=== PATIENT | male | born 1950 | race Caucasian/White ===

== ENCOUNTER 2019-09-20 13:24 | Outpatient (CLI) | payer MEDICARE, SELFPAY ==
[2019-09-20 14:35] LABS: Alanine Aminotransferase 28 U/L (4-50); Albumin Level 4.9 g/dL (3.5-5.1); Alkaline Phosphatase 55 U/L (38-126); Aspartate Amino Transferase 29 U/L (17-59); Bilirubin,Total 0.6 mg/dL (0.2-1.3); Blood Urea Nitrogen 17 mg/dL (9-20); Calcium 10.1 mg/dL (8.4-10.2); Carbon Dioxide 24 mmol/L (22-30); Chloride 100 mmol/L (98-107); Estimated Glomerular Filt Rate > 60; Glucose 147 mg/dL (75-110); Potassium 4.6 mmol/L (3.4-5.0); Sodium 141 mmol/L (137-145)
[2019-09-20 14:43] LABS: Add Urine Microscopic? YES; Appearance Urine Clear (Clear); Bilirubin Urine Negative (Negative); Blood Urine Negative (Negative); Color Urine Yellow (Yellow); Glucose Urine UA Negative (Negative); Ketones Urine Negative (Negative); Leukocyte Esterase Ur Negative LEU/UL (NEGATIVE); Mucus Urine Rare /lpf; Nitrate Urine Negative (Negative); Protein Urine 2+ mg/dL (Negative); RBC Urine 0-2 /hpf (0-2); Specific Grav Ur 1.025 (1.001-1.035); Squamous Epithelial Cell Urine Rare /hpf (Few); Urobilinogen Urine Negative mg/dL (<2.0); WBC Urine 0-3 /hpf (0-3)
== END 2019-09-20 13:25 | disposition home or self-care (01) ==
LOC: ANHLAB 13:28
PROVIDERS: PCP Family Medicine; Visit Provider Family Medicine
DX: E11.9 Type 2 diabetes mellitus without complications (principal); I10 Essential (primary) hypertension; E78.2 Mixed hyperlipidemia
CPT/HCPCS: 36415; 80053; 81001

== ENCOUNTER 2019-09-26 08:22 | Outpatient (CLI) | payer MEDICARE, SELFPAY ==
[2019-09-26 09:37] LABS: Alveolar/Arterial O2 Gradient 16.8 mmHg; Fractional Inspired Oxygen 21 %; Oxygen Content ABG 22.3 %vol (16.0-22.0); Oxygen Saturation ABG 96.2 % (95.0-100.0); Oxyhemoglobin 92.3 % THb (90.0-100.0); PCO2 ABG 38.8 mmHg (35.0-45.0); PO2 ABG 86.5 mmHg (80.0-100.0); PO2 FiO2 Ratio Arterial Blood 4.12 %; Total Hemoglobin 17.2 g/dL (12.0-18.0); pH ABG 7.352 (7.350-7.450)
[2019-09-26 09:38] LABS: Site Drawn RIGHT RADIAL
[2019-09-26 09:39] LABS: Modified Allen's Test Pass
[2019-09-26 09:40] LABS: Device ROOM AIR
== END 2019-09-26 08:23 | disposition home or self-care (01) ==
PROVIDERS: PCP Family Medicine; Visit Provider Family Medicine
DX: E87.2 Acidosis (principal)
CPT/HCPCS: 36600; 82805

== ENCOUNTER 2020-01-16 08:52 | Outpatient (CLI) | payer MEDICARE, SELFPAY ==
[2020-01-16 09:43] LABS: Alanine Aminotransferase 19 U/L (4-50); Albumin Level 4.5 g/dL (3.5-5.1); Alkaline Phosphatase 65 U/L (38-126); Aspartate Amino Transferase 24 U/L (17-59); Bilirubin,Total 0.5 mg/dL (0.2-1.3); Blood Urea Nitrogen 21 mg/dL (9-20); Calcium 9.4 mg/dL (8.4-10.2); Carbon Dioxide 25 mmol/L (22-30); Chloride 109 mmol/L (98-107); Cholesterol 180 mg/dL (0-200); Estimated Glomerular Filt Rate > 60; Glucose 119 mg/dL (75-110); HDL Direct 47 mg/dL; Potassium 4.4 mmol/L (3.4-5.0); Sodium 141 mmol/L (137-145); Triglycerides 228 mg/dL (<150)
[2020-01-16 09:53] LABS: LDL Cholesterol Direct 94 mg/dL
[2020-01-16 10:06] LABS: Free T4 Free Thyroxine 0.91 ng/mL (0.78-2.19)
[2020-01-20 05:13] LABS: Sex Hormone Binding Globulin 84 nmol/L (22-77)
[2020-01-20 14:45] LABS: Testosterone Total 363 ng/dL (250-1100)
== END 2020-01-16 08:53 | disposition home or self-care (01) ==
LOC: ANHLAB 08:56
PROVIDERS: PCP Family Medicine; Visit Provider Internal Medicine Endocrinology, Diabetes & Metabolism
DX: E11.65 Type 2 diabetes mellitus with hyperglycemia (principal); E78.5 Hyperlipidemia, unspecified; R68.82 Decreased libido
CPT/HCPCS: 36415; 80053; 80061; 83036; 84270; 84402; 84403; 84439; 84443

== ENCOUNTER 2020-08-06 09:04 | Outpatient (CLI) | payer MEDICARE, SELFPAY ==
[2020-08-06 09:58] LABS: Hemoglobin A1C 8.1 % (<5.7)
[2020-08-06 10:02] LABS: Alanine Aminotransferase 32 U/L (4-50); Albumin Level 4.5 g/dL (3.5-5.1); Alkaline Phosphatase 59 U/L (38-126); Anion Gap 6 mmol/L (8-16); Aspartate Amino Transferase 32 U/L (17-59); Bilirubin,Total 0.6 mg/dL (0.2-1.3); Blood Urea Nitrogen 21 mg/dL (9-20); Carbon Dioxide 29 mmol/L (22-30); Chloride 105 mmol/L (98-107); Cholesterol 168 mg/dL (0-200); Estimated Glomerular Filt Rate 60; Glucose 216 mg/dL (75-110); HDL Direct 49 mg/dL; Potassium 4.7 mmol/L (3.4-5.0); Sodium 140 mmol/L (137-145); Triglycerides 196 mg/dL (<150)
[2020-08-06 10:13] LABS: LDL Cholesterol Direct 89 mg/dL
[2020-08-06 10:43] LABS: Creatinine Urine 317.5 mg/dL
[2020-08-06 10:47] LABS: MALB Creatinine Ratio 23.9 mg/g (0-30)
== END 2020-08-06 09:05 | disposition home or self-care (01) ==
PROVIDERS: PCP Family Medicine; Visit Provider Internal Medicine Endocrinology, Diabetes & Metabolism
DX: E11.59 Type 2 diabetes mellitus with other circulatory complications (principal); E78.5 Hyperlipidemia, unspecified
CPT/HCPCS: 36415; 80053; 80061; 82043; 83036

== ENCOUNTER 2020-10-05 10:07 | Outpatient (CLI) | payer MEDICARE, SELFPAY ==
[2020-10-05 10:47] LABS: Basophils Percent Auto 0.6 % (0.2-1.2); Eosinophils Absolute Auto 0.2 K/mm3 (0-0.3); Eosinophils Percent Auto 2.6 % (0-4.4); Hematocrit 46.9 % (42.0-52.0); Immature Granulocyte Absolute 0.02 K/mm3 (0.00-0.031); Immature Granulocyte Percent A 0.3 % (0-0.5); Lymphocytes Absolute Auto 2.89 K/mm3 (0.9-3.2); Lymphocytes Percent Auto 40.3 % (18.3-44.2); Mean Corpuscular HGB Conc 34.1 g/dl (32-36); Mean Corpuscular Hemoglobin 31.7 pg (26-34); Mean Corpuscular Volume 93.1 fl (80-100); Mean Platelet Volume 10.3 fl (7.4-10.4); Monocytes Absolute Auto 0.5 K/mm3 (0.1-0.6); Monocytes Percent Auto 7.4 % (2.6-8.5); Neutrophils Absolute Auto 3.5 K/mm3 (1.3-6.7); Neutrophils Percent Auto 48.8 % (45.5-73.1); Platelet Count Result 176 k/mm3 (150-375); Red Blood Count 5.04 M/mm3 (4.6-6.20); Red Cell Distribution Width 12.7 % (11.5-14.5); White Blood Count 7.2 K/mm3 (4.5-10.0)
[2020-10-05 10:56] LABS: Prothrombin Time 13.6 Seconds (11.1-14.7)
[2020-10-05 10:58] LABS: Alanine Aminotransferase 22 U/L (4-50); Albumin Level 4.7 g/dL (3.5-5.1); Alkaline Phosphatase 46 U/L (38-126); Anion Gap 9 mmol/L (8-16); Aspartate Amino Transferase 30 U/L (17-59); Bilirubin,Total 0.5 mg/dL (0.2-1.3); Blood Urea Nitrogen 23 mg/dL (9-20); Calcium 9.7 mg/dL (8.4-10.2); Carbon Dioxide 25 mmol/L (22-30); Chloride 107 mmol/L (98-107); Estimated Glomerular Filt Rate 60; Glucose 100 mg/dL (75-110); Potassium 4.6 mmol/L (3.4-5.0); Sodium 141 mmol/L (137-145)
== END 2020-10-05 10:08 | disposition home or self-care (01) ==
PROVIDERS: PCP Family Medicine; Visit Provider Internal Medicine Cardiovascular Disease
DX: Z01.812 Encounter for preprocedural laboratory examination (principal); I25.709 Atherosclerosis of coronary artery bypass graft(s), unspecified, with unspecified angina pectoris
CPT/HCPCS: 36415; 80053; 85025; 85610

== ENCOUNTER 2021-02-19 10:50 | Outpatient (CLI) | payer MEDICARE, SELFPAY ==
[2021-02-19 11:36] LABS: Alanine Aminotransferase 25 U/L (4-50); Albumin Level 4.9 g/dL (3.5-5.1); Alkaline Phosphatase 50 U/L (38-126); Anion Gap 10 mmol/L (8-16); Aspartate Amino Transferase 32 U/L (17-59); Bilirubin,Total 0.6 mg/dL (0.2-1.3); Blood Urea Nitrogen 22 mg/dL (9-20); Calcium 10.1 mg/dL (8.4-10.2); Carbon Dioxide 22 mmol/L (22-30); Chloride 109 mmol/L (98-107); Cholesterol 144 mg/dL (0-200); Estimated Glomerular Filt Rate 54; Glucose 98 mg/dL (75-110); HDL Direct 54 mg/dL; Potassium 4.3 mmol/L (3.4-5.0); Sodium 141 mmol/L (137-145); Triglycerides 200 mg/dL (<150)
[2021-02-19 11:39] LABS: Hemoglobin A1C 6.4 % (<5.7)
[2021-02-19 11:47] LABS: LDL Cholesterol Direct 56 mg/dL
[2021-02-19 12:41] LABS: Microalbumin Urine Random 100.2 mg/L (0-16.7)
[2021-02-19 13:12] LABS: Creatinine Urine 374.4 mg/dL; MALB Creatinine Ratio 26.8 mg/g (0-30)
== END 2021-02-19 10:51 | disposition home or self-care (01) ==
PROVIDERS: PCP Family Medicine; Visit Provider Nurse Practitioner Family
DX: E11.65 Type 2 diabetes mellitus with hyperglycemia (principal)
CPT/HCPCS: 36415; 80053; 80061; 82043; 83036

== ENCOUNTER 2021-08-13 09:32 | Outpatient (CLI) | payer MEDICARE, SELFPAY ==
[2021-08-13 10:03] LABS: Hemoglobin A1C 7.5 % (<5.7)
[2021-08-13 10:10] LABS: Alanine Aminotransferase 33 U/L (4-50); Alkaline Phosphatase 66 U/L (38-126); Anion Gap 10 mmol/L (8-16); Aspartate Amino Transferase 35 U/L (17-59); Bilirubin,Total 0.7 mg/dL (0.2-1.3); Blood Urea Nitrogen 14 mg/dL (9-20); Carbon Dioxide 28 mmol/L (22-30); Chloride 103 mmol/L (98-107); Cholesterol 153 mg/dL (0-200); Estimated Glomerular Filt Rate > 60; Glucose 183 mg/dL (65-110); HDL Direct 66 mg/dL; Potassium 4.1 mmol/L (3.4-5.0); Sodium 141 mmol/L (137-145); Triglycerides 199 mg/dL (<150)
[2021-08-13 10:21] LABS: LDL Cholesterol Direct 59 mg/dL
[2021-08-13 10:22] LABS: Free T4 Free Thyroxine 1.04 ng/mL (0.78-2.19)
[2021-08-13 11:22] LABS: Microalbumin Urine Random 323.4 mg/L (0-16.7)
[2021-08-14 10:14] LABS: Creatinine Urine 397.5 mg/dL; MALB Creatinine Ratio 81.4 mg/g (0-30)
== END 2021-08-13 09:33 | disposition home or self-care (01) ==
PROVIDERS: PCP Family Medicine; Visit Provider Internal Medicine Endocrinology, Diabetes & Metabolism
DX: E11.9 Type 2 diabetes mellitus without complications (principal); E78.5 Hyperlipidemia, unspecified
CPT/HCPCS: 36415; 80053; 80061; 82043; 83036; 84439; 84443

== ENCOUNTER 2021-08-17 09:55 | Outpatient (CLI) | payer MEDICARE, SELFPAY ==
--- NOTE | 2021-08-17 | ECG_ITS ---
Measurements Intervals [place] Rate: 70 P: 63 FL: 196 QRS: 76 QRSD: 89 T: 61 QT: 393 QTc: 427 Interpretive Statements SINUS RHYTHM BASELINE ARTIFACT- I, II, III, AVR, AVL, AVF NORMAL ECG Electronically Signed On 08-17-2021 11:36:52 [employer] by Jefry Blankenship D.O.
[2021-08-17 11:09] LABS: Alanine Aminotransferase 25 U/L (4-50); Albumin Level 4.8 g/dL (3.5-5.1); Alkaline Phosphatase 61 U/L (38-126); Anion Gap 13 mmol/L (8-16); Aspartate Amino Transferase 28 U/L (17-59); Bilirubin,Total 0.7 mg/dL (0.2-1.3); Blood Urea Nitrogen 19 mg/dL (9-20); Carbon Dioxide 23 mmol/L (22-30); Chloride 104 mmol/L (98-107); Cholesterol 140 mg/dL (0-200); Estimated Glomerular Filt Rate 60; Glucose 173 mg/dL (65-110); HDL Direct 60 mg/dL; Potassium 4.4 mmol/L (3.4-5.0); Sodium 140 mmol/L (137-145); Triglycerides 150 mg/dL (<150)
[2021-08-17 11:16] LABS: Creatinine Urine 239.2 mg/dL; Hemoglobin A1C 7.4 % (<5.7)
[2021-08-17 11:20] LABS: LDL Cholesterol Direct 54 mg/dL; MALB Creatinine Ratio 75.4 mg/g (0-30); Microalbumin Urine Random 180.3 mg/L (0-16.7)
[2021-08-17 11:31] LABS: Free T4 Free Thyroxine 0.98 ng/mL (0.78-2.19)
== END 2021-08-17 09:56 | disposition home or self-care (01) ==
PROVIDERS: PCP Family Medicine; Visit Provider Orthopaedic Surgery
DX: Z01.818 Encounter for other preprocedural examination (principal); I10 Essential (primary) hypertension
CPT/HCPCS: 36415; 80053; 80061; 82043; 83036; 84439; 84443; 93005

== ENCOUNTER 2022-02-25 09:04 | Outpatient (CLI) | payer MEDICARE, SELFPAY ==
[2022-02-25 09:42] LABS: Alanine Aminotransferase 19 U/L (6-50); Albumin Level 4.6 g/dL (3.5-5.1); Alkaline Phosphatase 61 U/L (38-126); Anion Gap 8 mmol/L (8-16); Aspartate Amino Transferase 24 U/L (17-59); Bilirubin,Total 0.7 mg/dL (0.2-1.3); Blood Urea Nitrogen 22 mg/dL (9-20); Calcium 9.6 mg/dL (8.4-10.2); Carbon Dioxide 20 mmol/L (22-30); Chloride 110 mmol/L (98-107); Cholesterol 150 mg/dL (0-200); Estimated Glomerular Filt Rate 59; Glucose 218 mg/dL (65-110); HDL Direct 47 mg/dL; Potassium 4.4 mmol/L (3.4-5.0); Sodium 138 mmol/L (137-145); Triglycerides 274 mg/dL (<150)
[2022-02-25 09:53] LABS: LDL Cholesterol Direct 46 mg/dL
[2022-02-25 10:38] LABS: Free T4 Free Thyroxine 0.91 ng/mL (0.78-2.19)
[2022-02-25 10:56] LABS: Hemoglobin A1C 6.8 % (<5.7)
[2022-02-25 11:01] LABS: Creatinine Urine 344.3 mg/dL
[2022-02-25 11:22] LABS: MALB Creatinine Ratio 45.4 mg/g (0-30); Microalbumin Urine Random 156.4 mg/L (0-16.7)
== END 2022-02-25 09:05 | disposition home or self-care (01) ==
LOC: ANHLAB 09:05
PROVIDERS: PCP Family Medicine; Visit Provider Internal Medicine Endocrinology, Diabetes & Metabolism
DX: E11.9 Type 2 diabetes mellitus without complications (principal); E78.5 Hyperlipidemia, unspecified
CPT/HCPCS: 36415; 80053; 80061; 82043; 83036; 84439; 84443

== ENCOUNTER 2022-03-07 10:06 | Outpatient (CLI) | payer MEDICARE, SELFPAY ==
--- NOTE | ~2022-03-07 | US_ITS ---
EXAMINATION: US aorta [facility] scrn DATE: 03/07/2022 13:15 CDT INDICATION: Hypertension. Diabetes. High cholesterol. TECHNIQUE: Grayscale, color Doppler, and pulsed Doppler images of the aorta and common iliac arteries were obtained. COMPARISON: None. FINDINGS: The proximal aorta measures 2.6 cm greatest sagittal dimension. The mid aorta measures 2 cm greatest sagittal dimension. The distal aorta measures 1.7 cm sagittal dimension. The right common internal il iac artery measures 1.1 cm. The left common iliac artery measures 1.1 cm. IMPRESSION: 1. Normal caliber abdominal aorta without aneurysm. Reviewed, dictated and finalized at location A.
== END 2022-03-07 10:07 | disposition home or self-care (01) ==
PROVIDERS: PCP Family Medicine; Visit Provider Internal Medicine Cardiovascular Disease
DX: Z13.6 Encounter for screening for cardiovascular disorders (principal); Z87.891 Personal history of nicotine dependence
CPT/HCPCS: 76706

== ENCOUNTER 2022-06-02 09:49 | Outpatient (CLI) | payer MEDICARE, SELFPAY ==
--- NOTE | 2022-06-02 11:00 | NEURO_ITS ---
Impression: # History of left hand numbness. # Evidence of left Carpal Tunnel Syndrome. # Normal needle/EMG exam. # Clinical correlation recommended. Motor Nerve Conduction Upper Extremities Median Nerve Conduction Velocity (m/sec) Terminal Latency (msec) Response Voltage(mV) Elbow-Wrist Wrist Elbow Wrist Right Left 53 5.1 2 2 Ulnar Nerve Conduction Velocity (m/sec) Terminal Latency (msec) Response Voltage(mV) Above Elbow Below Elbow Wrist Above Elbow Below Elbow Wrist Right Left 60 60 3.0 4 5 5 F-Wave Latency Median (ms) Ulnar (ms) Right Left 31.3 30.1 Sensory Nerve Conduction Upper Extremities Median Nerve Stimulation Terminal Latency (msec) Wrist/Digit Response Voltage (uV) Wrist Right Left 5.7/5.8 11/9 Ulnar Nerve Stimulation Terminal Latency (msec) Wrist/Digit Response Voltage (uV) Wrist Right Left 2.9 39 Radial Nerve Terminal Latency (msec) Response Voltage(mV) Right Left 2.7 28 Left Right Muscles Examined Fibrillation Fasciculation Scarcity Voltage Duration Left Right Left Right Left Right Left Right Left Right Deltoid Biceps X Brachioradialis Triceps X Pronator Teres X Ext Indicis X Ext Digitorum X Abd Poll Brev X 1st Dorsal Interosseus Paraspinals MTDD
== END 2022-06-02 09:50 | disposition home or self-care (01) ==
PROVIDERS: PCP Family Medicine; Visit Provider Family Medicine
DX: R20.2 Paresthesia of skin (principal)
CPT/HCPCS: 95886; 95909

== ENCOUNTER 2022-07-14 10:52 | Outpatient (CLI) | payer MEDICARE, SELFPAY ==
[2022-07-14 11:41] LABS: Alanine Aminotransferase 29 U/L (6-50); Albumin Level 4.4 g/dL (3.5-5.1); Alkaline Phosphatase 71 U/L (38-126); Anion Gap 10 mmol/L (8-16); Aspartate Amino Transferase 27 U/L (17-59); Bilirubin,Total 0.7 mg/dL (0.2-1.3); Blood Urea Nitrogen 16 mg/dL (9-20); Calcium 9.3 mg/dL (8.4-10.2); Carbon Dioxide 25 mmol/L (22-30); Chloride 106 mmol/L (98-107); Cholesterol 145 mg/dL (0-200); Estimated Glomerular Filt Rate > 60; Glucose 215 mg/dL (65-110); HDL Direct 48 mg/dL; Potassium 4.2 mmol/L (3.4-5.0); Sodium 141 mmol/L (137-145); Triglycerides 279 mg/dL (<150)
[2022-07-14 11:52] LABS: LDL Cholesterol Direct 54 mg/dL
[2022-07-14 11:53] LABS: Hemoglobin A1C 7.4 % (<5.7)
[2022-07-14 12:25] LABS: Creatinine Urine 273.9 mg/dL
[2022-07-14 13:07] LABS: MALB Creatinine Ratio 90.1 mg/g (0-30); Microalbumin Urine Random 246.8 mg/L (0-16.7)
== END 2022-07-14 10:53 | disposition home or self-care (01) ==
LOC: ANHLAB 10:56
PROVIDERS: PCP Family Medicine; Visit Provider Internal Medicine Endocrinology, Diabetes & Metabolism
DX: E11.9 Type 2 diabetes mellitus without complications (principal); E78.5 Hyperlipidemia, unspecified
CPT/HCPCS: 36415; 80053; 80061; 82043; 83036; 84443

== ENCOUNTER 2022-07-20 09:08 | Outpatient (CLI) | payer MEDICARE, SELFPAY ==
--- NOTE | 2022-07-20 | ECG_ITS ---
Measurements Intervals [place] Rate: 62 P: 62 NE: 184 QRS: 72 QRSD: 89 T: 79 QT: 414 QTc: 421 Interpretive Statements SINUS RHYTHM COMPARED TO ECG 08/17/2021 10:46:40 NO SIGNIFICANT CHANGES Electronically Signed On 07-20-2022 13:22:38 NEUROPHYSIOLOGIST by Sabas Sifuentes M.D.
[2022-07-20 11:03] LABS: Anion Gap 7 mmol/L (8-16); Blood Urea Nitrogen 21 mg/dL (9-20); Calcium 8.9 mg/dL (8.4-10.2); Carbon Dioxide 26 mmol/L (22-30); Chloride 104 mmol/L (98-107); Estimated Glomerular Filt Rate > 60; Glucose 195 mg/dL (65-110); Potassium 4.3 mmol/L (3.4-5.0); Sodium 137 mmol/L (137-145)
== END 2022-07-20 09:09 | disposition home or self-care (01) ==
LOC: ANHLAB 09:12
PROVIDERS: PCP Family Medicine; Visit Provider Orthopaedic Surgery
DX: Z01.818 Encounter for other preprocedural examination (principal)
CPT/HCPCS: 36415; 80048; 93005

== ENCOUNTER 2022-10-12 10:23 | Outpatient (CLI) | payer MEDICARE, SELFPAY ==
[2022-10-12 11:35] LABS: Anion Gap 9 mmol/L (8-16); Blood Urea Nitrogen 27 mg/dL (9-20); Calcium 9.8 mg/dL (8.4-10.2); Carbon Dioxide 25 mmol/L (22-30); Chloride 108 mmol/L (98-107); Estimated Glomerular Filt Rate > 60; Glucose 155 mg/dL (65-110); Potassium 4.2 mmol/L (3.4-5.0); Sodium 142 mmol/L (137-145)
== END 2022-10-12 10:24 | disposition home or self-care (01) ==
LOC: ANHLAB 10:25
PROVIDERS: PCP Family Medicine; Visit Provider Internal Medicine Endocrinology, Diabetes & Metabolism
DX: R80.9 Proteinuria, unspecified (principal)
CPT/HCPCS: 36415; 80048

== ENCOUNTER 2022-11-23 09:23 | Outpatient (CLI) | payer MEDICARE, SELFPAY ==
--- NOTE | ~2022-11-23 | XR_ITS ---
XR chest 2V DATE: 11/23/2022 10:05 INDICATION: Hemoptysis. Covid infection in September 2022 TECHNIQUE: PA and lateral views COMPARISON: 03/04/2007 PA and lateral chest FINDINGS: Status post sternotomy and CABG. Surgical clips overlying the lower anteromedial left chest . Normal heart size. No hilar or mediastinal enlargement. There is prominent discoid atelectasis or scarring at the right lung base; otherwise no pulmonary infiltrate or consolidation, pulmonary vascul ar congestion or pleural effusion or pneumothorax. Degenerative spurring of the thoracic spine. IMPRESSION: Status post sternotomy/CABG Prominent discoid atelectasis or scarring at the right lung base; otherwise no active cardiopulmonary disease Reviewed, dictated and finalized at location B.
[2022-11-23 10:06] LABS: Basophils Absolute Auto 0.1 K/mm3 (0.0-0.1); Basophils Percent Auto 0.5 % (0.2-1.2); Eosinophils Absolute Auto 0.1 K/mm3 (0-0.3); Eosinophils Percent Auto 1.3 % (0-4.4); Hematocrit 40.6 % (42.0-52.0); Hemoglobin 13.5 g/dL (14.0-18.0); Immature Granulocyte Absolute 0.05 K/mm3 (0.00-0.031); Immature Granulocyte Percent A 0.4 % (0-0.5); Lymphocytes Absolute Auto 2.81 K/mm3 (0.9-3.2); Lymphocytes Percent Auto 25.2 % (18.3-44.2); Mean Corpuscular HGB Conc 33.3 g/dl (32-36); Mean Corpuscular Hemoglobin 30.8 pg (26-34); Mean Corpuscular Volume 92.5 fl (80-100); Mean Platelet Volume 10.3 fl (7.4-10.4); Monocytes Absolute Auto 0.8 K/mm3 (0.1-0.6); Monocytes Percent Auto 6.7 % (2.6-8.5); Neutrophils Absolute Auto 7.4 K/mm3 (1.3-6.7); Neutrophils Percent Auto 65.9 % (45.5-73.1); Platelet Count Result 254 k/mm3 (150-375); Red Blood Count 4.39 M/mm3 (4.6-6.20); Red Cell Distribution Width 13.4 % (11.5-14.5); White Blood Count 11.2 K/mm3 (4.5-10.0)
[2022-11-23 10:17] LABS: Alanine Aminotransferase 21 U/L (6-50); Albumin Level 4.4 g/dL (3.5-5.1); Alkaline Phosphatase 83 U/L (38-126); Anion Gap 13 mmol/L (8-16); Aspartate Amino Transferase 24 U/L (17-59); Bilirubin,Total 0.6 mg/dL (0.2-1.3); Blood Urea Nitrogen 21 mg/dL (9-20); Calcium 9.4 mg/dL (8.4-10.2); Carbon Dioxide 21 mmol/L (22-30); Chloride 105 mmol/L (98-107); Cholesterol 119 mg/dL (0-200); Creatine Kinase 126 U/L (55-170); Estimated Glomerular Filt Rate > 60; Glucose 253 mg/dL (65-110); HDL Direct 33 mg/dL; Potassium 4.4 mmol/L (3.4-5.0); Sodium 139 mmol/L (137-145); Triglycerides 198 mg/dL (<150)
[2022-11-23 10:18] LABS: Rheumatoid Factor < 8.6 IU/ML (<12)
[2022-11-23 10:26] LABS: Appearance Urine Cloudy (Clear); Bacteria Urine None Seen /hpf; Bilirubin Urine 1+ (Negative); Blood Urine Negative (Negative); Color Urine Dark Yellow (Yellow); Glucose Urine UA Negative (Negative); Ketones Urine Trace mg/dL (Negative); Leukocyte Esterase Ur Negative LEU/UL (Negative); Mucus Urine Present /lpf; Nitrate Urine Negative (Negative); Non Pathogenic Casts >20; Protein Urine 2+ mg/dL (Negative); RBC Urine 0-2 /hpf (0-2); Squamous Epithelial Cell Urine Few /hpf (Few); WBC Urine 0-5 /hpf; pH Urine 5.5 (5.0-9.0)
[2022-11-23 10:28] LABS: LDL Cholesterol Direct 44 mg/dL
[2022-11-23 10:47] LABS: Add Urine Microscopic? YES
[2022-11-23 10:48] LABS: Prostate Specific Antigen 0.3 ng/mL (< OR = 4.0)
[2022-11-23 10:49] LABS: Erythrocyte Sedimentation Rate 56 mm/hr (0-20)
[2022-11-25 15:36] LABS: Iron 70 ug/dL (49-181)
[2022-11-25 15:45] LABS: Percent Iron Saturation 21 % (20-50)
[2022-11-27 18:21] LABS: Anti Cyclic Citrullinated Pept <16 Units (<20)
== END 2022-11-23 09:24 | disposition home or self-care (01) ==
PROVIDERS: PCP Family Medicine; Visit Provider Family Medicine
DX: R04.2 Hemoptysis (principal); R06.2 Wheezing; M25.50 Pain in unspecified joint; R53.83 Other fatigue; E11.9 Type 2 diabetes mellitus without complications; M79.10 Myalgia, unspecified site; D64.9 Anemia, unspecified; E78.2 Mixed hyperlipidemia; Z12.5 Encounter for screening for malignant neoplasm of prostate; E03.9 Hypothyroidism, unspecified; R80.9 Proteinuria, unspecified; E53.8 Deficiency of other specified B group vitamins
CPT/HCPCS: 36415; 71046; 80053; 80061; 81001; 82550; 82607; 82728; 83540; 83550; 84153; 84443; 85025; 85652; 86038; 86200; 86430; G0103

== ENCOUNTER 2022-12-19 12:49 | Outpatient (CLI) | payer MEDICARE, SELFPAY ==
--- NOTE | ~2022-12-19 | CT_ITS ---
CT Scan of the Chest without Contrast: Clinical Indication: Hemoptysis Technique: Contiguous sections were acquired throughout the chest without intravenous contrast. Dose reduction technique was used on this scan by utilizing automated exposure control and iterative recon struction technique. The dose-length product (DLP) was 383.31 mGy-cm. Findings: There is no evidence of any significant mediastinal, hilar or axillary lymphadenopathy. There is evid ence of prior CABG with underlying coronary artery calcifications. There is no evidence of pleural or pericardial effusion. There is linear bibasilar scarring. 2 mm left lower lobe pulmonary nodule noted (axial image 85). Images through the upper abdomen reveal no abnormalities. Impression: 2 mm left lower lobe pulmonary nodule. According to Fleischner Society criteria, for a low-risk patie nt, no further follow-up required. For a high-risk patient, consider 12 month follow-up CT. Status post CABG. Reviewed, dictated and finalized at [place] [facility]. Impression: 2 mm left lower lobe pulmonary nodule. According to Fleischner Society criteria , for a low-risk patient, no further follow-up required. For a high-risk patien t, consider 12 month follow-up CT. Status post CABG.
== END 2022-12-19 12:50 | disposition home or self-care (01) ==
PROVIDERS: PCP Family Medicine; Visit Provider Family Medicine
DX: R04.2 Hemoptysis (principal); Z95.1 Presence of aortocoronary bypass graft; R91.1 Solitary pulmonary nodule
CPT/HCPCS: 71250

== ENCOUNTER 2023-01-04 12:30 | Outpatient (RCR) | payer MEDICARE, SELFPAY ==
--- NOTE | 2022-12-07 15:37 | OTOPEVAL1 ---
Assessment and note entered by Baron Ibanez, OTR/L, CHT Evaluation Information Assessment Status Evaluation Diagnosis Carpal Tunnel Syndrome, Left Subjective Information Patient is s/p left carpal tunnel release 07/26/22. He continues to have pain, weakness, and tenderness to pressure in the left hand. Reported Pain Level Pain Score 5: Self Report Additional Pain Score Comments He reports his pain never gets lower than 4-5/10. Any sort of gripping/turning causes increased pain. Assessment OT Clinical Summary Patient referred to outpatient hand therapy following left carpal tunnel release with persistent pain, weakness, and sensitivity which is restricting return to functional use for ADLs. He will benefit from skilled OT for use of modalities, manual therapy, HEP instruction/ progression, ROM, and strengthening exercises to facilitate optimal functional use of the left hand . Plan of Care Interventions Therapeutic Exercise,Manual Therapy,Therapeutic Activities,Hot Pack/Cold Pack,Ultrasound,Paraffin OT Services Indicated Yes Treatment Frequency and 0-1x/week for 4 weeks Duration These treatments will address the objective and functional deficits as defined above. The patient will be advanced safely and appropriately in order for the patient to progress towards his/her prior level of function. Additional exercises will be introduced and as well as a comprehensive home exercise program upon discharge, if needed, ?to ensure carryover of functional gains achieved in the clinic. This treatment plan has been reviewed and agreement upon by the patient.
--- NOTE | 2023-01-04 12:47 | OTOPDC ---
Assessment and note entered by Baron Ibanez, OTR/L, CHT Evaluation Information Assessment Status Discharge Diagnosis Carpal Tunnel Syndrome, Left Subjective Information Patient is s/p left carpal tunnel release 07/26/22 . He was referred to hand therapy due to having residual pain, weakness, and tenderness. Today he is reporting no pain and no longer has tenderness with pressure through the palm. He states his strength is back to normal. Reported Pain Level Pain Score 0: Self Report Assessment OT Clinical Summary Patient referred to outpatient hand therapy following left carpal tunnel release with persistent pain, weakness, and sensitivity which is restricting return to functional use for ADLs. He participated in 2 hand therapy sessions. At this time he no longer is reporting pain, weakness , or sensitivity. He reports no functional deficits at this time. No further skilled OT indicated. Plan of Care OT Services Indicated No
== END 2023-01-04 13:23 | disposition home or self-care (01) ==
LOC: ANHOT 12:30
PROVIDERS: PCP Family Medicine; Visit Provider Family Medicine
DX: G56.02 Carpal tunnel syndrome, left upper limb (principal)
CPT/HCPCS: 97110; 97140; 97165

== ENCOUNTER 2023-01-31 00:32 | Day surgery (SDC) | payer MEDICARE, SELFPAY ==
[2023-01-25 13:01] VITALS: BMI 25.9
--- NOTE | 2023-01-30 13:17 | WPDANESEPPF ---
Anes - Initial Pre Proc Eval Procedure: Operation Date: 01/31/23 10:00 Proposed Procedures p Colonoscopy - Randy No MD Date/Time: 01/30/23 13:17 Surgeon: Randy No MD Pre Op Diagnosis: other fecal abnormalities Patient Data Age: 72 Gender: M Height: 1.78 m Weight: 82 kg Allergies Allergy/AdvReac Type Severity Reaction Status Date / Time Penicillins Allergy Severe Anaphylaxis Verified 01/31/23 09:04 hydrocodone Allergy Intermediate Itching Verified 01/31/23 09:04 amoxicillin Allergy Unknown Unknown Verified 01/31/23 09:04 cefaclor Allergy Unknown Unknown Verified 01/31/23 09:04 Cephalosporins Allergy Unknown unknown Verified 01/31/23 09:04 erythromycin base Allergy Unknown unknown Verified 01/31/23 09:04 Home Medications Medication Instructions Recorded Confirmed Type insulin aspart U-100 100 unit/mL 1 sliding scale dose subcut 08/07/19 01/31/23 History subcutaneous solution (Novolog USEASDIRECTD U-100 Insulin aspart) aspirin 81 mg tablet,delayed 81 mg PO DAILY 09/11/19 01/31/23 History release (Adult Low Dose Aspirin) esomeprazole magnesium 20 mg 20 mg PO DAILY #90 caps 05/07/20 01/31/23 Rx capsule,delayed release rosuvastatin 40 mg tablet 40 mg PO HS 09/17/20 01/31/23 History albuterol sulfate 90 mcg/actuation 1 puff inhalation Q4H PRN 03/30/21 01/31/23 Rx aerosol inhaler (Ventolin HFA) shortness of breath or wheezing #1 device insulin degludec 200 unit/mL (3 40 unit subcut HS 12/07/21 01/31/23 History mL) subcutaneous pen (Tresiba FlexTouch U-200 insulin) ticagrelor 60 mg tablet (Brilinta) 60 mg PO Q12H #60 tabs 12/07/21 01/31/23 Rx venlafaxine 75 mg capsule,extended 75 mg PO DAILY #180 caps 01/09/23 01/31/23 Rx release 24 hr budesonide-formoterol HFA 80 2 puff inhalation Q12H PRN 01/25/23 01/31/23 History mcg-4.5 mcg/actuation aerosol Shortness Of Breath inhaler (Symbicort) lisinopril 10 mg tablet 10 mg PO DAILY 01/25/23 01/31/23 History metoprolol tartrate 25 mg tablet 25 mg PO BID 01/25/23 01/31/23 History Patient hx anesthesia problems: none Family hx anesthesia problems: none Results Review: All pre-operative results and documents have been reviewed as part of the pre-operative evaluation. [facility] Past Medical History Medical History (Updated 01/30/23 @ 13:26 by Ritchie Roth DO) Anxiety Bleeds easily Bronchitis CAD (coronary artery disease) Colon cancer screening (~07/2019) Cologuard negative Diabetes type 2, controlled Gastroesophageal reflux History of COVID-25 Sep 2022 Hyperlipidemia associated with type 2 diabetes mellitus Hypertension Impingement syndrome of both shoulders Surgical History Surgical History (Updated 01/30/23 @ 13:26 by Ritchie Roth DO) H/O carpal tunnel repair (~07/2021) History of coronary artery stent placement Hx of CABG x3, 2011 S/P lateral meniscectomy of left knee (~2021) S/P medial meniscectomy of right knee (~2021) Family History Family History Father CVD (cardiovascular disease) Cerebrovascular accident Coronary artery disease Stomach cancer Mother Coronary artery disease Father Cerebrovascular accident, Onset Age: 74 Family history of coronary artery disease, Onset Age: 74 Patient's father is , Onset Age: 74 Mother Family history of coronary artery disease, Onset Age: 68 Patient's mother is , Onset Age: 68 Social History Social History Smoking packs per day: 1 Smoking cigarettes per day: 20.0 Years smoked: 47 Smoking pack-years: 47.00 Smoking status: Former smoker Tobacco type: cigarettes and cigars Second hand tobacco smoke exposure: Yes Smoking end date: 08/07/10 Additional smoking assessment comments: OCC. CIGAR NOW Alcohol intake: current Alcohol
[2023-01-31 08:53] VITALS: BP 140/93; PULSE 71; RESP 18; TEMP 36.4; O2SAT 99; BMI 25.7
[2023-01-31] MEDS: LACTATED RINGERS 1,000 ML 150 ML IV CONT (09:18)
[2023-01-31 09:19] LABS: Glucose Point of Care 197 mg/dl (65-105)
--- NOTE | 2023-01-31 10:08 | PM.HPGS ---
History of Present Illness History of Present Illness Consent: Risks, benefits, and alternatives have been discussed and questions answered. Patient agrees to proceed with procedure. Chief complaint: other fecal abnormalities Narrative: Yrn Shen is a 72 year old male here for + cologuard, last colonoscopy 14 years ago Review of Systems Constitutional: Constitutional: Denies headache(s) and Denies weakness Eyes: Eyes: Denies blurry vision ENT: Reports Normal hearing present, Denies headache(s) and Denies neck pain Cardiovascular: Cardiovascular: Denies chest pain and Denies dyspnea Respiratory: Respiratory: Denies dyspnea Gastrointestinal: Gastrointestinal: Reports no additional gastrointestinal complaints Genitourinary: Genitourinary: Denies dysuria Musculoskeletal: Musculoskeletal: Denies neck pain Integumentary/Breasts: Skin/Breast: Denies dry skin Neurologic: Reports Normal hearing present, Denies headache(s) and Denies weakness Psychiatric: Psychiatric: Denies anxiety Endocrine: Endocrine: Denies change in body appearance Hematologic/Lymphatic: Hematologic/Lymphatic: Denies easy bleeding Allergic/Immunologic: Allergic/Immunologic: Denies urticaria PMFSH Past Medical History Medical History (Updated 01/31/23 @ 10:09 by Randy No MD) Anxiety Bleeds easily Bronchitis CAD (coronary artery disease) Colon cancer screening (~07/2019) Cologuard negative Diabetes type 2, controlled Gastroesophageal reflux History of COVID-25 Sep 2022 Hyperlipidemia associated with type 2 diabetes mellitus Hypertension Impingement syndrome of both shoulders Positive colorectal cancer screening using Cologuard test Surgical History Surgical History (Updated 01/30/23 @ 13:26 by Ritchie Roth DO) H/O carpal tunnel repair (~07/2021) History of coronary artery stent placement Hx of CABG x3, 2011 S/P lateral meniscectomy of left knee (~2021) S/P medial meniscectomy of right knee (~2021) Family History Family History Father CVD (cardiovascular disease) Cerebrovascular accident Coronary artery disease Stomach cancer Mother Coronary artery disease Father Cerebrovascular accident, Onset Age: 74 Family history of coronary artery disease, Onset Age: 74 Patient's father is , Onset Age: 74 Mother Family history of coronary artery disease, Onset Age: 68 Patient's mother is , Onset Age: 68 Social History Social History Smoking packs per day: 1 Smoking cigarettes per day: 20.0 Years smoked: 47 Smoking pack-years: 47.00 Smoking status: Former smoker Tobacco type: cigarettes and cigars Second hand tobacco smoke exposure: Yes Smoking end date: 08/07/10 Additional smoking assessment comments: OCC. CIGAR NOW Alcohol intake: current Alcohol use details: RARE Substance use: never Substance use type: does not use Lack of Transportation: No Lack of Food: Never True Current Housing: I Have Housing Concerned About Future Housing: No Difficulty Paying Gas/Electric Bills: No Difficulty Paying for Meds: No Currently Unemployed: No Education: Trade/Vocational Certificate Difficulty w/ Childcare or Family Care: No Living arrangements: with family Occupation/Education: retired Gender identity (if verbalized by the patient): Male Spiritual care concerns: No Agree to blood products: Yes Meds Home Medications and Allergies Home Medications Medication Instructions Recorded Confirmed Type insulin aspart U-100 100 unit/mL 1 sliding scale dose subcut 08/07/19 01/31/23 History subcutaneous solution (Novolog USEASDIRECTD U-100 Insulin aspart) aspirin 81 mg tablet,delayed 81 mg PO DAILY 09/11/19 01/31/23 History release (Adult Low Dose Aspirin) esomeprazole mag
[2023-01-31 10:33] VITALS: BP 89/54; PULSE 60; RESP 22; O2SAT 97
[2023-01-31 10:43] VITALS: BP 102/70; PULSE 60; RESP 18; O2SAT 99
[2023-01-31 10:53] VITALS: BP 119/89; PULSE 58; RESP 18; O2SAT 99
== END 2023-01-31 11:00 | disposition home or self-care (01) ==
PROVIDERS: PCP Family Medicine; Visit Provider Internal Medicine Gastroenterology
PROC: 0DJD8ZZ Inspection of Lower Intestinal Tract, Via Natural or Artificial Opening Endoscopic (ICD-10-PCS; CPT 45378; principal; 2023-01-31 10:00)
DX: R19.5 Other fecal abnormalities (principal); D12.8 Benign neoplasm of rectum; K64.8 Other hemorrhoids; I25.10 Atherosclerotic heart disease of native coronary artery without angina pectoris; E11.9 Type 2 diabetes mellitus without complications; E78.5 Hyperlipidemia, unspecified; I10 Essential (primary) hypertension; K21.9 Gastro-esophageal reflux disease without esophagitis; F41.9 Anxiety disorder, unspecified; Z95.1 Presence of aortocoronary bypass graft; Z95.5 Presence of coronary angioplasty implant and graft; Z72.0 Tobacco use; Z79.4 Long term (current) use of insulin; Z79.82 Long term (current) use of aspirin; Z79.51 Long term (current) use of inhaled steroids
CPT/HCPCS: 45385; 82948; 88305; J2704; J7120

== ENCOUNTER 2023-03-07 08:37 | Outpatient (CLI) | payer MEDICARE, SELFPAY ==
[2023-03-07 09:14] LABS: Hematocrit 43.2 % (42.0-52.0); Hemoglobin 14.4 g/dL (14.0-18.0); Mean Corpuscular HGB Conc 33.3 g/dl (32-36); Mean Corpuscular Hemoglobin 31.2 pg (26-34); Mean Corpuscular Volume 93.5 fl (80-100); Mean Platelet Volume 10.2 fl (7.4-10.4); Platelet Count Result 182 k/mm3 (150-375); Red Blood Count 4.62 M/mm3 (4.6-6.20); White Blood Count 7.1 K/mm3 (4.5-10.0)
[2023-03-07 09:15] LABS: Basophils Percent Auto 0.4 % (0.2-1.2); Eosinophils Absolute Auto 0.2 K/mm3 (0-0.3); Eosinophils Percent Auto 3.1 % (0-4.4); Hemoglobin 14.4 g/dL (14.0-18.0); Immature Granulocyte Absolute 0.01 K/mm3 (0.00-0.031); Immature Granulocyte Percent A 0.1 % (0-0.5); Lymphocytes Absolute Auto 2.91 K/mm3 (0.9-3.2); Lymphocytes Percent Auto 41.3 % (18.3-44.2); Mean Corpuscular HGB Conc 33.5 g/dl (32-36); Mean Corpuscular Hemoglobin 31.3 pg (26-34); Mean Corpuscular Volume 93.5 fl (80-100); Mean Platelet Volume 10.3 fl (7.4-10.4); Monocytes Absolute Auto 0.4 K/mm3 (0.1-0.6); Monocytes Percent Auto 6.3 % (2.6-8.5); Neutrophils Absolute Auto 3.4 K/mm3 (1.3-6.7); Neutrophils Percent Auto 48.8 % (45.5-73.1); Platelet Count Result 192 k/mm3 (150-375); Red Cell Distribution Width 13.9 % (11.5-14.5)
[2023-03-07 09:18] LABS: Appearance Urine Clear (Clear); Bacteria Urine None Seen /hpf; Bilirubin Urine Negative (Negative); Blood Urine Negative (Negative); Color Urine Yellow (Yellow); Glucose Urine UA Negative (Negative); Ketones Urine Trace mg/dL (Negative); Leukocyte Esterase Ur Negative LEU/UL (Negative); Nitrate Urine Negative (Negative); Protein Urine 2+ mg/dL (Negative); RBC Urine 0-2 /hpf (0-2); Specific Grav Ur 1.024 (1.001-1.035); Squamous Epithelial Cell Urine None seen /hpf (Few); WBC Urine 0-5 /hpf; pH Urine 6.5 (5.0-9.0)
[2023-03-07 09:24] LABS: Cholesterol 142 mg/dL (0-200); HDL Direct 46 mg/dL; Triglycerides 143 mg/dL (<150)
[2023-03-07 09:25] LABS: Add Urine Microscopic? YES
[2023-03-07 09:26] LABS: Alanine Aminotransferase 26 U/L (6-50); Albumin Level 4.5 g/dL (3.5-5.1); Alkaline Phosphatase 65 U/L (38-126); Anion Gap 13 mmol/L (8-16); Aspartate Amino Transferase 28 U/L (17-59); Bilirubin,Total 0.4 mg/dL (0.2-1.3); Blood Urea Nitrogen 17 mg/dL (9-20); Calcium 9.3 mg/dL (8.4-10.2); Carbon Dioxide 21 mmol/L (22-30); Chloride 106 mmol/L (98-107); Cholesterol 144 mg/dL (0-200); Estimated Glomerular Filt Rate > 60; Glucose 130 mg/dL (65-110); HDL Direct 45 mg/dL; Potassium 4.2 mmol/L (3.4-5.0); Sodium 140 mmol/L (137-145); Triglycerides 142 mg/dL (<150)
[2023-03-07 09:27] LABS: Rheumatoid Factor < 12.0 IU/ML (<12)
[2023-03-07 09:35] LABS: LDL Cholesterol Direct 54 mg/dL
[2023-03-07 09:37] LABS: LDL Cholesterol Direct 54 mg/dL
[2023-03-07 09:56] LABS: Hemoglobin A1C 7.3 % (<5.7)
[2023-03-07 09:58] LABS: Erythrocyte Sedimentation Rate 23 mm/hr (0-20)
[2023-03-11 11:50] LABS: Anti Cyclic Citrullinated Pept <16 Units (<20)
== END 2023-03-07 08:38 | disposition home or self-care (01) ==
PROVIDERS: PCP Family Medicine; Visit Provider Family Medicine
DX: M25.541 Pain in joints of right hand (principal); E11.9 Type 2 diabetes mellitus without complications; E78.2 Mixed hyperlipidemia; R53.83 Other fatigue
CPT/HCPCS: 36415; 80053; 80061; 81001; 83036; 84443; 85025; 85027; 85652; 86038; 86200; 86430

== ENCOUNTER 2023-03-28 15:23 | Outpatient (CLI) | payer MEDICARE, SELFPAY ==
--- NOTE | ~2023-03-28 | MR_ITS ---
EXAMINATION: MR hand RT wo con DATE: 03/28/2023 16:35 INDICATION: Right hand pain at the third and fourth digits TECHNIQUE: Magnetic resonance imaging (MRI) of the right hand was performed without intravenous contr ast. Sequences included axial, sagittal and coronal T1-weighted FSE and T2-weighted FS FSE. COMPARISON: None FINDINGS: Bone alignment is normal. No fracture or pathologic marrow replacing process. Mild osteoarthritis at the second carpometacarpal joint with mild subarticular cystic changes at the ulnar side of the base of the second metacarpal. Is unremarkable. Physiologic amount fluid in the joint spaces. There is thi ckening of the proximal aspect of the radial collateral ligaments at the second and third metacarpoph alangeal joints. Likely associated small T2 hyperintense erosion at the footplate of the ligament johanna ng the radial side of the head of the second metacarpal and minimal edema-like signal change at the r adial side of the head of the third metacarpal. There is no surrounding soft tissue edema to suggest acute injury. 6 x 3 x 4 mm T2 hyperintense likely ganglion cyst along the palmar/radial aspect of the flexor tendon at the level of the base of the second proximal phalanx. The flexor and extensor tendo ns appear normal. There is scarring at the palmar aspect of the carpus in location suggesting prior c arpal tunnel release. IMPRESSION: 1. Mild osteoarthritis at the second carpometacarpal joint. 2. Thickening of the radial collateral ligaments at the second and third metacarpophalangeal joints w ithout surrounding edema to suggest acute injury suggesting scarring related to chronic injury. Reviewed, dictated and finalized at location A. IMPRESSION: 1. Mild osteoarthritis at the second carpometacarpal joint. 2. Thickening of the radial collateral ligaments at the second and third metaca rpophalangeal joints without surrounding edema to suggest acute injury suggesti ng scarring related to chronic injury.
== END 2023-03-28 15:24 | disposition home or self-care (01) ==
PROVIDERS: PCP Family Medicine; Visit Provider Family Medicine
DX: M79.641 Pain in right hand (principal); M19.041 Primary osteoarthritis, right hand
CPT/HCPCS: 73218

== ENCOUNTER 2023-05-16 10:00 | Outpatient (RCR) | payer MEDICARE, SELFPAY ==
--- NOTE | 2023-04-14 09:19 | OTOPEVAL1 ---
Assessment and note entered by Baron Ibanez, JOVAN/Wan, CHT Evaluation Information Assessment Status Evaluation Diagnosis Right hand pain Subjective Information Patient has been experiencing pain and swelling in his right hand for a few months. He reports he had a round of prednisone in March and this helped a lot. Now he is back to taking 1,000mg of Tylenol in the morning. Reports he had an MRI of the hand which shows arthritis in the fingers and scar tissue in the palm. He had carpal tunnel release in the right hand about 20 years ago. Reported Pain Level Pain Score 0: Self Report Additional Pain Score Comments No pain at rest. Pain increases to 7-8/10 with ROM and use. Pain is localized to digits III-V and the base of the palm. Assessment OT Clinical Summary Patient presents to outpatient OT with right hand pain that has been going on for a few months. He is s/p a round of prednisone, which he reports helped with the swelling, but the pain persists. Reports pain with any sort of gripping tasks and this is localized to digits III and V. Skilled OT indicated to maximize functional right hand use and strength through therapeutic exercise, modalities , manual therapy, and HEP instruction and progression. Plan of Care Interventions Therapeutic Exercise,Manual Therapy,Therapeutic Activities,Hot Pack/Cold Pack,Ultrasound,Paraffin OT Services Indicated Yes Treatment Frequency and 1x/week for 5 weeks Duration These treatments will address the objective and functional deficits as defined above. The patient will be advanced safely and appropriately in order for the patient to progress towards his/her prior level of function. Additional exercises will be introduced and as well as a comprehensive home exercise program upon discharge, if needed, ?to ensure carryover of functional gains achieved in the clinic. This treatment plan has been reviewed and agreement upon by the patient.
--- NOTE | 2023-04-14 09:19 | OPREHPOC ---
Outpatient Therapy Plan of Care This is a Multidisciplinary Plan of Care that may contain components documented by all disciplines (PT, OT, and ST.) OT Problem 1 OT Problem #1 Knowledge Deficit OT Goal 1 Goal 1. Patient to be independent with instructed materials. OT Problem 2 OT Problem #2 Impaired Flexibility OT Goal 1 Goal 1. Increase right wrist ROM: - flexion to 60* - extension to 70* OT Problem 3 OT Problem #3 Pain OT Goal 1 Goal 1. Patient to report reduced pain in the right hand, stating 5/10 or less at worst . OT Problem 4 OT Problem #4 Impaired Strength OT Goal 1 Goal 1. 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
--- NOTE | 2023-05-04 13:36 | PCOTNOTE ---
Patient called & cancelled scheduled appointment this date.
--- NOTE | 2023-05-16 10:28 | OTOPDC ---
Assessment and note entered by Baron Ibanez, JOVAN/Wan, CHT Discharge Summary 05/16/23 Diagnosis Right hand pain Subjective Information Patient has been experiencing pain and swelling in his right hand for a few months. He reports therapy has helped, noting that he is now able to lift a cup of coffee and lift heavier objects with his right hand. He reports no change in the pain when he golfs. He continues to take 1,000 mg of Tylenol every morning. Reported Pain Level Pain Score 0: Self Report Additional Pain Score Comments No pain at rest. Reports pain increasing to 6-7/10 with gripping. Assessment OT Clinical Summary Patient preferred to outpatient OT with right hand pain. Signs and symptoms are consistent with OA. Treatments included use of modalities, manual therapy, exercise, and HEP instruction with the goals of reducing pain, improving strength, and returning to functional use of the right hand. ROM of the wrist improved. ROM of the fingers remained unchanged, degenerative changes noted in the fingers. He is reporting improved functional use, but overall reporting the same amount of pain . Recommend he uses non-medication pain managment such as heat, ROM, and gentle strengthening. No further skilled OT indicated at this time. Plan of Care OT Services Indicated No
== END 2023-05-16 13:52 | disposition home or self-care (01) ==
LOC: ANHOT 10:00
PROVIDERS: PCP Family Medicine; Visit Provider Family Medicine
DX: M25.541 Pain in joints of right hand (principal)
CPT/HCPCS: 97018; 97035; 97110; 97140; 97165

== ENCOUNTER 2023-09-19 09:50 | Emergency (ER) | payer MEDICARE, SELFPAY ==
--- NOTE | ~2023-09-19 | XR_ITS ---
XR chest 2V DATE: 09/19/2023 10:43 INDICATION: Cough. Covid-positive. Hypotension. TECHNIQUE: 2 views COMPARISON: 12/19/2022 CT chest FINDINGS: Status post sternotomy and coronary bypass graft surgery. Coronary artery stent. Heart size is normal. There is mild aortic arch calcification. No hilar or mediastinal enlargement. No pulmonary infiltrate or consolidation, pleural effusion or pulmonary vascular congestion or pneumo thorax is detected. Diffuse osteopenia. Degenerative spurring of the thoracic spine. IMPRESSION: No active cardiopulmonary disease Reviewed, dictated and finalized at location L. LF[facility]UCKER
[2023-09-19 10:04] VITALS: BP 88/51; PULSE 97; RESP 16; TEMP 36.3; O2SAT 99
--- NOTE | 2023-09-19 10:24 | ED.URI ---
HPI - URI/Sore Throat General Chief Complaint: Upper Respiratory Infection Stated Complaint: Congestion;Cough Time Seen by Provider: 09/19/23 10:28 Source: patient and RN notes reviewed Mode of arrival: ambulatory Limitations: no limitations History of Present Illness HPI Narrative: 72-year-old male presents with concern for cough, chest congestion, nasal congestion and drainage. Reports he has been sick for 2 weeks. Reports he had a positive COVID test yesterday. Reports he began feeling more fatigued and general malaise so he took a COVID test. He denies shortness of breath MD elicited complaint: cough Related Data Home Medications Medication Instructions Recorded Confirmed insulin aspart U-100 100 unit/mL 1 sliding scale dose subcut 08/07/19 09/19/23 subcutaneous solution (Novolog USEASDIRECTD U-100 Insulin aspart) aspirin 81 mg tablet,delayed 81 mg PO DAILY 09/11/19 09/19/23 release (Adult Low Dose Aspirin) rosuvastatin 40 mg tablet 40 mg PO HS 09/17/20 09/19/23 insulin degludec 200 unit/mL (3 40 unit subcut HS 12/07/21 09/19/23 mL) subcutaneous pen (Tresiba FlexTouch U-200 insulin) budesonide-formoterol HFA 80 2 puff inhalation Q12H PRN 01/25/23 09/19/23 mcg-4.5 mcg/actuation aerosol Shortness Of Breath inhaler (Symbicort) lisinopril 10 mg tablet 10 mg PO DAILY 01/25/23 09/19/23 metoprolol tartrate 25 mg tablet 25 mg PO BID 01/25/23 09/19/23 Allergies Allergy/AdvReac Type Severity Reaction Status Date / Time Penicillins Allergy Severe Anaphylaxis Verified 09/19/23 10:18 hydrocodone Allergy Intermediate Itching Verified 09/19/23 10:18 amoxicillin Allergy Unknown Unknown Verified 09/19/23 10:18 cefaclor Allergy Unknown Unknown Verified 09/19/23 10:18 Cephalosporins Allergy Unknown unknown Verified 09/19/23 10:18 erythromycin base Allergy Unknown unknown Verified 09/19/23 10:18 Review of Systems Review of Systems: CONSTITUTIONAL: Reports malaise, fatigue. Chills, sweats, or fever. EYES: Denies visual changes, redness, or discharge. ENT: Reports rhinorrhea, congestion. Denies sinus pain, otalgia and sore throat. CARDIOVASCULAR: Denies chest pain, palpitations, or edema. RESPIRATORY: Reports cough and chest congestion. Denies dyspnea. GASTROINTESTINAL: Denies abdominal pain, nausea, vomiting, diarrhea SKIN: Denies rash or itching. MUSCULOSKELETAL: Denies myalgia. NEUROLOGIC: Denies headache. All systems reviewed & are unremarkable except as noted in HPI and below PMFSH Past Medical History Medical History Anxiety Bleeds easily Bronchitis CAD (coronary artery disease) Colon cancer screening (~07/2019) Cologuard negative Diabetes type 2, controlled Gastroesophageal reflux History of COVID-25 Sep 2022 Hyperlipidemia associated with type 2 diabetes mellitus Hypertension Impingement syndrome of both shoulders Positive colorectal cancer screening using Cologuard test Surgical History Surgical History H/O carpal tunnel repair (~07/2021) History of coronary artery stent placement Hx of CABG x3, 2011 S/P lateral meniscectomy of left knee (~2021) S/P medial meniscectomy of right knee (~2021) Family History Family History Father CVD (cardiovascular disease) Cerebrovascular accident Coronary artery disease Stomach cancer Mother Coronary artery disease Father Cerebrovascular accident, Onset Age: 74 Family history of coronary artery disease, Onset Age: 74 Patient's father is , Onset Age: 74 Mother Family history of coronary artery disease, Onset Age: 68 Patient's mother is , Onset Age: 68 Social History Social History Smoking packs per day: 1 Smoking cigarettes per day:
== END 2023-09-19 11:04 | disposition home or self-care (01) ==
PROVIDERS: Emergency Provider Nurse Practitioner; PCP Family Medicine
DX: J40 Bronchitis, not specified as acute or chronic (principal); I25.10 Atherosclerotic heart disease of native coronary artery without angina pectoris; E11.9 Type 2 diabetes mellitus without complications; E78.5 Hyperlipidemia, unspecified; I10 Essential (primary) hypertension; Z87.891 Personal history of nicotine dependence
CPT/HCPCS: 71046; 99213; G0463

== ENCOUNTER 2023-11-28 12:53 | Outpatient (CLI) | payer MEDICARE, SELFPAY ==
[2023-11-28 14:05] LABS: Alanine Aminotransferase 30 U/L (6-50); Albumin Level 5.2 g/dL (3.5-5.1); Alkaline Phosphatase 70 U/L (38-126); Anion Gap 11 mmol/L (4-12); Aspartate Amino Transferase 33 U/L (17-59); Bilirubin,Total 0.8 mg/dL (0.2-1.3); Blood Urea Nitrogen 18 mg/dL (9-20); Calcium 10.2 mg/dL (8.4-10.2); Carbon Dioxide 24 mmol/L (22-30); Chloride 107 mmol/L (98-107); Cholesterol 172 mg/dL (0-200); Estimated Glomerular Filt Rate > 60; Glucose 134 mg/dL (65-110); HDL Direct 55 mg/dL; Potassium 4.5 mmol/L (3.4-5.0); Sodium 142 mmol/L (137-145); Triglycerides 265 mg/dL (<150)
[2023-11-28 14:16] LABS: LDL Cholesterol Direct 77 mg/dL
[2023-11-28 15:46] LABS: Creatinine Urine 114.7 mg/dL
[2023-11-28 16:49] LABS: Microalbumin Urine Random 1024.3 mg/L (0-16.7)
[2023-11-28 20:28] LABS: Hemoglobin A1C 6.4 % (<5.7)
== END 2023-11-28 12:54 | disposition home or self-care (01) ==
LOC: ANHLAB 12:55
PROVIDERS: PCP Family Medicine; Visit Provider Family Medicine
DX: E11.9 Type 2 diabetes mellitus without complications (principal); E78.2 Mixed hyperlipidemia
CPT/HCPCS: 36415; 80053; 80061; 82043; 83036

== ENCOUNTER 2024-02-15 10:24 | Outpatient (CLI) | payer MEDICARE, SELFPAY ==
[2024-02-15 11:33] LABS: Creatinine Urine 114.3 mg/dL
[2024-02-15 11:35] LABS: MALB Creatinine Ratio 127.2 mg/g (0-30); Microalbumin Urine Random 145.4 mg/L (0-16.7)
[2024-02-15 12:28] LABS: Prostate Specific Antigen 0.3 ng/mL (< OR = 4.0)
== END 2024-02-15 10:25 | disposition home or self-care (01) ==
LOC: ANHLAB 10:29
PROVIDERS: PCP Family Medicine; Referring Provider Family Medicine; Visit Provider Internal Medicine Endocrinology, Diabetes & Metabolism
DX: Z12.5 Encounter for screening for malignant neoplasm of prostate (principal); E11.29 Type 2 diabetes mellitus with other diabetic kidney complication; R80.9 Proteinuria, unspecified
CPT/HCPCS: 36415; 82043; 84153; G0103

== ENCOUNTER 2024-08-20 16:24 | Outpatient (CLI) | payer MEDICARE, SELFPAY ==
--- NOTE | ~2024-08-20 | US_ITS ---
EXAMINATION: US thyroid DATE: 08/20/2024 16:46 INDICATION: Goiter TECHNIQUE: Multiple ultrasound images of the thyroid were obtained. COMPARISON: 04/15/2005 FINDINGS: The right thyroid lobe measures 4.4 x 2.3 x 1.5 cm. The left thyroid lobe measures 5.2 x 2.4 x 2.0 cm. Within the mid pole of the left lobe of the thyroid gland is a 16 x 12 x 14 mm anechoic avascular foc us: Composition -cystic or almost completely cystic Echogenicity -anechoic Shape - wider than tall Margin - smooth Echogenic foci - none. = TR1, benign The isthmus measures 3.3mm in anterior to posterior dimension. IMPRESSION: TR1 cystic nodule in the left lobe of the thyroid gland measuring 15 mm in greatest dimension. This nodule is not sonographically suspicious and no FNA is needed. Follow-up may be performed, but is not recommended. Reviewed, dictated and finalized at location A. [facility] IMPRESSION: TR1 cystic nodule in the left lobe of the thyroid gland measuring 15 mm in grea test dimension. This nodule is not sonographically suspicious and no FNA is needed. Follow-up may be performed, but is not recommended.
== END 2024-08-20 16:25 | disposition home or self-care (01) ==
LOC: ANHIMG 16:26
PROVIDERS: PCP Family Medicine; Visit Provider Family Medicine
DX: E04.1 Nontoxic single thyroid nodule (principal)
CPT/HCPCS: 76536

== ENCOUNTER 2024-09-17 09:49 | Outpatient (CLI) | payer MEDICARE, SELFPAY ==
[2024-09-17 10:23] LABS: Basophils Percent Auto 0.6 % (0.2-1.2); Eosinophils Absolute Auto 0.2 K/mm3 (0-0.3); Eosinophils Percent Auto 2.5 % (0-4.4); Hematocrit 43.6 % (42.0-52.0); Hemoglobin 14.6 g/dL (14.0-18.0); Immature Granulocyte Absolute 0.01 K/mm3 (0.00-0.031); Immature Granulocyte Percent A 0.2 % (0-0.5); Lymphocytes Absolute Auto 2.43 K/mm3 (0.9-3.2); Mean Corpuscular HGB Conc 33.5 g/dl (32-36); Mean Corpuscular Hemoglobin 31.1 pg (26-34); Mean Platelet Volume 10.8 fl (7.4-10.4); Monocytes Absolute Auto 0.4 K/mm3 (0.1-0.6); Monocytes Percent Auto 6.4 % (2.6-8.5); Neutrophils Absolute Auto 3.3 K/mm3 (1.3-6.7); Neutrophils Percent Auto 52.3 % (45.5-73.1); Platelet Count Result 149 k/mm3 (150-375); Red Blood Count 4.69 M/mm3 (4.6-6.20); White Blood Count 6.4 K/mm3 (4.5-10.0)
[2024-09-17 10:39] LABS: Alanine Aminotransferase 31 U/L (6-50); Albumin Level 4.4 g/dL (3.5-5.1); Alkaline Phosphatase 73 U/L (38-126); Anion Gap 11 mmol/L (4-12); Aspartate Amino Transferase 29 U/L (17-59); Bilirubin,Total 0.5 mg/dL (0.2-1.3); Blood Urea Nitrogen 27 mg/dL (9-20); Calcium 9.6 mg/dL (8.4-10.2); Carbon Dioxide 22 mmol/L (22-30); Chloride 108 mmol/L (98-107); Cholesterol 142 mg/dL (0-200); Estimated Glomerular Filt Rate > 60; Glucose 177 mg/dL (65-110); HDL Direct 49 mg/dL; Potassium 4.4 mmol/L (3.4-5.0); Sodium 141 mmol/L (137-145); Triglycerides 172 mg/dL (<150)
[2024-09-17 10:44] LABS: Creatinine Urine 176.7 mg/dL
[2024-09-17 10:47] LABS: MALB Creatinine Ratio 30.6 mg/g (0-30); Microalbumin Urine Random 54.1 mg/L (0-16.7)
--- OUTSIDE RECORDS SUMMARY | 2024-09-17 10:48 | XMS_ITS | Clinical Summary ---
Author Organization [facility] Address [address] [place] [id number] Care Team Providers Care Burr Picker Name Role Phone Kandy Carrillo MD Primary Care Provider [phone] Allergies Active Allergy Reactions Criticality Noted Date Comments Erythromycin Rash Medium Hydrocodone Rash Medium 08/06/2020 Milk Other (See comments) Reaction: Diarrhea, Penicillins Swelling High Throat closed up, severe immediate reaction, PCN allergy form filled out Medications esomeprazole DR (NexIUM) 20 mg capsule Take 1 capsule (20 mg total) by mouth daily 0 Active metoprolol tartrate (LOPRESSOR) 25 mg immediate release tablet Take 1 tablet (25 mg total) by mouth 2 (two) times a day 0 Active venlafaxine XR (EFFEXOR-XR) 75 mg 24 hr capsule Take 1 capsule (75 mg total) by mouth daily 0 Active fenofibrate nanocrystallized (TRICOR) 145 mg tablet Take 1 tablet (145 mg total) by mouth daily 0 Active insulin degludec (TRESIBA) 200 unit/mL (3 mL) insulin pen Inject 0.18 mL (36 Units total) under the skin nightly Active nitroglycerin (NITROSTAT) 0.[address] 1 tablet (0.4 mg total) under the tongue every 5 (five) minutes as needed for chest pain May repeat dose q 5 min, up to 3 doses total 90 tablet 1 Active Ozempic 0.25 mg or 0.5 mg(2 mg/1.5 mL) pen injector Inject 0.25 mg under the skin once a week Takes on Tuesdays 1 Active insulin aspart U-100 (NovoLOG) 100 unit/mL (3 mL) insulin pen Inject under the skin 2 (two) times a day as needed Takes on a sliding scale once to twice a day Active aspirin 81 mg enteric coated tablet Take 1 tablet (81 mg total) by mouth daily 90 tablet 3 1 Active lisinopriL (PRINIVIL,ZESTRIL) 10 mg tablet 3 Active celecoxib (CeleBREX) 100 mg capsule Take 2 capsules (200 mg total) by mouth daily 60 capsule 3 Active traMADoL (ULTRAM) 50 mg tablet Take by mouth every 6 (six) hours as needed 3 Active predniSONE (DELTASONE) 20 mg tablet Take 1 tablet (20 mg) by mouth daily for 30 days 3 Active albuterol HFA (PROVENTIL HFA,VENTOLIN HFA,PROAIR HFA) 90 mcg/actuation inhaler Inhale 1 puff every 4 (four) hours as needed 4 Active ticagrelor (Brilinta) 60 mg tabletIndications:Co ronary artery disease of [place] artery of [place] heart with stable angina pectoris (HCC) Take 1 tablet by mouth twice daily 180 tablet 3 4 Active rivaroxaban (Xarelto) 2.5 mg tablet Take 1 tablet by mouth twice daily 30 tablet 8 4 Active rosuvastatin (CRESTOR) 40 mg tablet Take 1 tablet by mouth nightly 90 tablet 2 4 Active Active Problems Problem Noted Date Diagnosed Date Nonrheumatic aortic valve stenosis 09/13/2023 Arthropathy of hand 02/08/2023 Disorder of bursae of shoulder region 02/08/2023 Sprain of metacarpophalangeal joint 02/08/2023 Sprain of wrist 02/08/2023 Dyslipidemia 12/16/2022 Acquired trigger finger of left ring finger 09/08 Carpal tunnel syndrome of left wrist 08/08/2022 Arthralgia of right knee 06/15/2022 Derangement of right knee 06/15/2022 Tear of medial meniscus of knee 06/15/2022 Abnormal stress test 09/17/2020 Overview (09/17/2020): Added automatically from request for surgery [id number] Atypical chest pain 08/06/2020 Gastroesophageal reflux disease 08/06/2020 Former smoker 08/06/2020 Hypertension associated with diabetes 08/06/2020 Hyperlipidemia associated with type 2 diabetes m ellitus 08/06/2020 Type 2 diabetes mellitus 10/18/2019 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 09/21/2010 Surgical History Surgery Date Site/Laterality Comments CARDIAC SURGERY 08/07/2010 - 08/06/2011 bypass CORONARY ARTERY BYPASS GRAFT KNEE ARTHROSCOPY Left TRIGGER FINGER RELEASE Medical History Medical History Date Comments Asthma Hypertension Hyperlipidemia DM (diabetes mellitus) (HCC) Type 2 diabetes mellitus (HCC) Chest pain GERD (gastroesophageal reflux disease) Anxiety Coronary artery disease Family History Medical History Relation Name Comments Heart attack Brother Stomach Tumor Father Heart disease Mother Relation Name Status Comments Brother Father Mother Social History Tobacco Use Types Packs/Day Years Used Date Smoking Tobacco: Former Cigarettes Q uit: 2010 Smokeless Tobacco: Current Tobacco Cessation:Ready to Q uit: Not Asked; Counseling Given: Not Answered Alcohol Use Standard Drinks/Week Comments Yes 0 (1 standard drink = 0.6 oz pur e alcohol) AUDIT-C Answer Date Recorded Q1: How often do you have a drink containing alc ohol? Monthly or less 10/08/2020 Q2: How many drinks containi ng alcohol do you have on a typical day when you are drinking? 1 or 2 10/08/2020 Q3: How often do you have si x or more drinks on one occasion? 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 Gender Identity Not on file Sexual Orientation Not on file Obstetrics History Last Filed Vital Signs Vital Sign Reading Time Taken Comments Blood Pressure 118/70 03/21/2024 8:46 AM CDT Pulse 81 03/21/2024 8:46 AM CDT Temperature 36.7 C (98.1 F) 10/09/2020 7:00 AM SEWING MACHINE REPAIRER HELPER Respiratory Rate 18 10/09/2020 7:00 AM SEWING MACHINE REPAIRER HELPER Oxygen Saturation 98% 03/21/2024 8:46 AM CDT Inhaled Oxygen Concentration - - Weight 78 kg (172 lb) 03/21/2024 8:46 AM CDT Height 177.8 cm (5' 10 ) 03/21/2024 8:46 AM CDT Body Mass Index 24.68 03/21/2024 8:46 AM CDT Plan of Treatment Health Maintenance Due Date Last Done Comments Albumin Creatinine Ratio, Urine 1948 Colon Cancer Screening-Colonoscopy 1948 Depression Screening 1948 Fall Risk Assessment 1948 Hemoglobin A1C 1948 Hepatitis C Screening 1948 eGFR 1948 Dilated Eye Exam 1948 Foot Exam 1948 Pneumococcal vaccine 65+ (1 of 2 - PCV) 1954 DTaP/Tdap/Td Vaccine (1 - Tdap) 12/19/1959 Hepatitis B Screening 1966 Zoster Vaccine (1 of 2) 1998 Abdominal Aortic Aneurysm (A AA) Screen 2013 Well Visit 65+ 2013 Influenza Vaccine (#1) 2024 , 05/07/2019, 05/25/2018, Additional history exists Lipid Panel 09/13/2024 09/13/2023, 08/08, 08/20/2021, Additional history exists Medical Devices Implanted Type Area Brass Roller Device Identifier Shelf Expiration Date Model / Serial / Lot [employer] X [id number] Resolute [place] 3mm 2.1-2.7fr 34mm 140cm Rapid Exchange Radiopaque - [id number] Implanted:Qty: 1 on 10/08/2020 by Riley Walden MD at [facility] [employer] [id number] / / Procedures Procedure Name Priority Date/Time Associated Diagnosis Comments POCT LIPID PANEL Routine 09/13/2023 10:4 5 AM SEWING MACHINE REPAIRER HELPER Coronary artery disease of [place] artery of [place] heart with stable angina pectoris (HCC) Hyperlipidemia associated with type 2 diabetes mellitus (HCC) from Last 3 Months or Most Recently Relevant to Health Maintenance Results * POCT lipid panel (09/13/2023 10:45 AM SEWING MACHINE REPAIRER HELPER) Cholesterol, POC 140 mg/dL HDL, POC 43 mg/dL Triglycerides, POC 216 mg/dL LDL Cholesterol POC 53 mg/dL Chol/HDL Ratio, POC 1.2 Non-HDL Cholesterol, POC 96 mg/dL Cholesterol Total, POC 140 mg/dL Capillary blood 09/13/2023 1 0:45 AM SEWING MACHINE REPAIRER HELPER us Moe Rodríguez MD POINT OF CARE TEST ORDERA BLES Final Result from Last 3 Months or Most Recently Relevant to Health Maintenance Insurance MED[employer]ARE [employer] [facility] MED[facility] Address: [id number] [place] [address] MEDICARE [employer] [facility] Address: [address] [address] [place] [address] MEDICARE SOLUTIONS [facility] Address: [address] [address] [place] [address] [employer] [facility] Address: [address] [address] [place] [address] Care Teams Burr Picker Relationship Specialty Start Date End Date Kandy Carrillo MD PCP - General 10/10/16
--- OUTSIDE RECORDS SUMMARY | 2024-09-17 10:48 | XMS_ITS | Referral Summary ---
Author Organization [facility] Address [address] [place] [id number] Care Team Providers Care Vinyl Hanger Name Role Phone Kandy Carrillo MD Primary Care Provider [phone] Allergies Active Allergy Reactions Criticality Noted Date [...] 60 mg tabletIndications:Co ronary artery disease of [place] artery of [place] heart with stable angina pectoris (HCC) Take [...] (09/17/2020): Added automatically from request for surgery [id number] Atypical chest pain 08/06/2020 Gastroesophageal reflux disease 08/06/2020 Former smoker 08/06/2020 Hypertension associated with diabetes 08/06/2020 Hyperlipidemia associated with type 2 diabetes m ellitus 08/06/2020 Type 2 diabetes mellitus 10/18/2019 Coronary artery disease of n ative artery of [place] heart with stable angina pectoris 09/21/2010 Social History Tobacco Use Types Packs/Day Years [...] on file Legal 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 Gender Identity Not on file Sexual Orientation Not on file Last Filed Vital Signs Vital Sign Reading Time Taken Comments Blood Pressure 118/70 03/21/2024 8:46 AM CDT Pulse 81 03/21/2024 8:46 AM CDT Temperature 36.7 C (98.1 F) 10/09/2020 7:00 AM COMMUNICATIONS STATION MANAGER Respiratory Rate 18 10/09/2020 7:00 AM COMMUNICATIONS STATION MANAGER Oxygen Saturation 98% 03/21/2024 8:46 AM CDT Inhaled Oxygen Concentration - - Weight 78 kg (172 lb) 03/21/2024 8:46 AM CDT Height 177.8 cm (5' 10 ) 03/21/2024 8:46 AM CDT Body Mass Index 24.68 03/21/2024 8:46 AM CDT Plan of Treatment Not on file Medical Devices Implanted Type Area Healthcare Liaison Device Identifier Shelf Expiration Date Model / Serial / Lot [employer] X [id number] Resolute [place] 3mm 2.1-2.7fr 34mm 140cm Rapid Exchange Radiopaque - [id number] Implanted:Qty: 1 on 10/08/2020 by Riley Walden MD at [facility] [employer] [id number] / / Procedures Procedure Name Priority Date/Time Associated Diagnosis Comments POCT LIPID PANEL Routine 09/13/2023 10:4 5 AM COMMUNICATIONS STATION MANAGER Coronary artery disease of [place] artery of [place] heart with stable angina pectoris (HCC) Hyperlipidemia associated with type 2 diabetes mellitus (HCC) from Last 3 Months or Most Recently Relevant to Health Maintenance Results * POCT lipid panel (09/13/2023 10:45 AM COMMUNICATIONS STATION MANAGER) Cholesterol, POC 140 mg/dL HDL, POC 43 mg/dL Triglycerides, POC 216 mg/dL LDL Cholesterol POC 53 mg/dL Chol/HDL Ratio, POC 1.2 Non-HDL Cholesterol, POC 96 mg/dL Cholesterol Total, POC 140 mg/dL Capillary blood 09/13/2023 1 0:45 AM COMMUNICATIONS STATION MANAGER us Moe Rodríguez MD POINT OF CARE TEST ORDERA BLES Final Result from Last 3 Months or Most Recently Relevant to Health Maintenance Insurance MEDICARE SOLUTIONS MED[employer] MED[employer]IONS Care Teams Vinyl Hanger Relationship Specialty Start Date End Date Kandy Carrillo MD PCP - General 10/10/16
--- OUTSIDE RECORDS SUMMARY | 2024-09-17 10:48 | XMS_ITS | Clinical Summary ---
Author Organization [facility] Address [address] [place] [id number] Care Team Providers Care Partner Alliance Manager Name Role Phone Unavailable Primary Care Provider Unavailabl e Social History Tobacco Use Types Packs/Day Years Used Date Smoking Tobacco: Never Assessed Sex and Gender Information Value Date Recorded Sex Assigned at Not on file Legal Sex Male 5:16 PM CDT Gender Identity Not on file Sexual Orientation Not on file Plan of Treatment Health Maintenance Due Date Last Done Comments Colorectal Cancer Screening Colonoscopy (10 Years) 1948 Hepatitis C 1966 DTaP, Tdap and Td Vaccines ( 1 - Tdap) 12/19/1967 Zoster Vaccines (1 of 2) 1998 Pneumococcal Vaccine: 65+ Ye ars (1 of 1 - PCV) 2013 RSV Immunization or 60+ Years (1 - 1-dose 75+ series) 12/19/2023 COVID-19 Vaccine ( - 2023-2 5 season) 2024 Influenza Adult (#1) 2024 Meningococcal B Vaccine Aged Out No l onger eligible based on patient's age to complete this topic Meningococcal Vaccine Aged Out No adalid guzman eligible based on patient's age to complete this topic RSV Immunizations Under 20 Months Aged Out No longer eligible based on patient's age to complete this topic
[2024-09-17 10:51] LABS: LDL Cholesterol Direct 66 mg/dL
== END 2024-09-17 09:50 | disposition home or self-care (01) ==
PROVIDERS: PCP Family Medicine; Visit Provider Internal Medicine Endocrinology, Diabetes & Metabolism
DX: R53.83 Other fatigue (principal); E78.2 Mixed hyperlipidemia; I10 Essential (primary) hypertension; E11.69 Type 2 diabetes mellitus with other specified complication; E78.5 Hyperlipidemia, unspecified; E04.9 Nontoxic goiter, unspecified; E11.29 Type 2 diabetes mellitus with other diabetic kidney complication; R80.9 Proteinuria, unspecified
CPT/HCPCS: 36415; 80053; 80061; 82043; 84443; 85025

== ENCOUNTER 2025-02-25 14:44 | Outpatient (CLI) | payer MEDICARE, SELFPAY ==
--- NOTE | ~2025-02-25 | XR_ITS ---
EXAMINATION: XR ribs RT 2V, 05/23/2025 14:20 CDT HISTORY: RECHECK ON RT RIB FX'S FROM 05/10/25 INJURYS COMPARISON: No comparisons available. Findings: Rib fractures noted previously is not well redemonstrated. No acute fracture is identified No significant degenerative changes. Soft tissues unremarkable. Impression: No acute fracture or malalignment. Reviewed, dictated and finalized at location P.
--- NOTE | ~2025-02-25 | CT_ITS ---
CLINICAL INDICATION: Solitary pulmonary nodule COMPARISON: 12/19/2022. TECHNIQUE: Multiple contiguous axial images of the chest was performed without the administration of intravenous contrast. This CT examination was performed utilizing dose reduction techniques. DLP: 107 mGy-cm FINDINGS/OBSERVATIONS: LUNG: Redemonstration of a 3.5 mm pulmonary nodule within the left lower lobe (axial series, image 73) unch anged from prior (axial series, image 85). No additional pulmonary nodularity is appreciated. The remainder of the lungs are clear. HEART: The heart is of normal size, without pericardial effusion. MEDIASTINUM: No pathologically enlarged or morphologically suspicious lymph nodes are identified within the medias tinum, bilateral axilla, within the soft tissues of the anterior chest wall. SOFT TISSUES OF THE CHEST: Unremarkable. BONES OF THE CHEST: No acute fracture. No lytic or blastic lesions are identified. Sternal wires are present. UPPER ABDOMEN: The gallbladder is decompressed. The bilateral adrenal glands are unremarkable. IMPRESSION: Redemonstration of a 3.5 mm pulmonary nodule within the left lower lobe, unchanged from prior. Given the size of the original nodule, Fleischner's criteria for follow-up recommended an optional CT at 12 months. This nodule is stable at 2 years, for which no further follow-up is needed However, if the patient is at increased risk (adult, 50-80 years old, 20 pack year smoking history, a nd currently smoke or have quit within the past 15 years) low dose CT examination for lung cancer scr eening may be performed yearly. Reviewed, dictated and finalized at location A. IMPRESSION: Redemonstration of a 3.5 mm pulmonary nodule within the left lower lobe, unchan ged from prior. Given the size of the original nodule, Fleischner's criteria for follow-up matt mmended an optional CT at 12 months. This nodule is stable at 2 years, for which no further follow-up is needed However, if the patient is at increased risk (adult, 50-80 years old, 20 pack y ear smoking history, and currently smoke or have quit within the past 15 years) low dose CT examination for lung cancer screening may be performed yearly.
--- OUTSIDE RECORDS SUMMARY | 2025-02-25 14:49 | XMS_ITS | Data Portability ---
Author Organization [place] - [facility] [employer], Main Office Address [address] [place] [address] Care Team Providers Care Director [employer] Name Role Phone IDALIA MONROE Primary Care Provider [phone] DIALIA MONROE Referring Provider [phone] Assessment No assessment recorded. Plan of Treatment Reminders Order Date Submit Date Provider Last Modified By Organization Details Last Modified Time Details Appointments None recorded. Lab rf (rheumatoid factor), serum [address] [place] [address] (Lab), [address] [place] [address], [id number], 3 09:57:45 ccp (cyclic citrullinat ed peptide) iga+igg, serum [address] [place] [address] (Lab), [address] [place] [address], [id number], 3 09:57:45 ESR (erythrocyt e sedimentati on rate), blood [address] [place] [address] (Lab), [address] [place] [address], [id number], 3 09:57:46 C reactive protein, QN, serum or plasma [address] [place] [address] (Lab), [address] [place] [address], [id number], 3 09:57:46 MASON (antinuclea r antibodies) screen, serum [address] (Lab), [address] [place] [address], [id number], 3 09:57:46 lipid panel, serum [address] (Lab), [address] [place] [address], [id number], 3 09:57:46 TSH + free T4, serum [address] (Lab), [address] [place] [address], [id number], 3 09:57:46 CMP, serum or plasma 2022 023 [facility] (Lab), [address] [place] [address], [id number], 3 16:32:09 HbA1c (hemoglobin A1c), blood [address] (Lab), [address] [place] [address], [id number], 3 09:57:46 microalbumi n/creatinin e, mass ratio, urine [address] (Lab), [address] [place] [address], [id number], 3 09:57:45 Referral endocrinolo gy referral 2022 023 [email or web address] Heide Villa MD, [address],, [facility], [place], [address], 3 14:42:07 Procedures None recorded. Surgeries None recorded. Imaging None recorded. Medication Orders Tresiba FlexTouch U-200 insulin 200 unit/mL (3 mL) subcutaneou s pen 2022 023 [facility] [place], [address], 3 14:32:02 glipizide 5 mg tablet 2022 023 [facility] [place], [address], 3 14:33:13 glipizide 5 mg tablet 2022 023 [facility] [place], [address], 3 09:53:56 Patient TargetsNo targets recorded. Patient InstructionsNo instructions recorded. Reason for Referral Endocrinology Referral for W ell controlled type 2 diabetes mellitus Referring Physician: Rosa Meeks, Endocrinology, Encounter Date: 05/09/2023 Results Created Date Observation Date Name Description Value Unit Range Abnormal Flag Note LastModifiedBy Organization Detail LastModifiedTime 07/20/20 22 07/20/2022 elect umair thomas am No observ ation record ed. [id number] [facility] (Resp Services) [address] [place] [address] [facility] [facility], [place], [address], 10/05/2022 05:06:44 Result Notes None recorded. Problems Name Problem SNOMED Code Status Onset Date Resolution Date Notes Provider Name and Address Organization Details Recorded Time Acquired trigger finger 4843183 Active Not Available [facility] 3 04:50:15 Radiothera py follow-up 370144716 Active Not Available [facility] 3 04:50:15 Current tear of medial cartilage AND/OR meniscus of knee Active Not Available [facility] 3 04:50:16 Knee pain Active Not Available [facility] 3 04:50:16 Sprain of metacarpop halangeal joint 23346605 Active Not Available [facility] 3 04:50:16 Arthropath y of joint of hand 624691507 Active Not Available [facility] 3 04:50:16 Disorder of bursa of shoulder region 42744454 Active Not Available [facility] 3 04:50:17 Sprain of wrist 85447387 Active Not Available [facility] 3 04:50:17 Type 2 diabetes mellitus 18960103 Active 2019 Not Available [facility] 3 04:50:17 Hyperlipid emia 95184512 Active 2019 Not Available [facility] 3 04:50:17 Osteoarthr itis of right knee joint 7955751162649 00 Active 2021 Not Available [facility] 3 04:50:16 Pain in right hand 4715928508846 09 Active 2021 Not Available [facility] 3 04:50:16 Derangemen t of right knee 6606083127501 9109 Active 2021 Not Available [facility] 3 04:50:15 Osteoarthr itis of knee 200669406 Active 2021 Not Available [facility] 3 04:50:15 Tear of medial meniscus of knee 134348320 Active 2021 Not Available [facility] 3 04:50:15 Acquired trigger finger of right index finger 1256536020425 Active 2021 Not Available [facility] 3 04:50:16 Pain of right knee joint 2348053535773 00 Active 2021 Not Available [facility] 3 04:50:17 Carpal tunnel syndrome of left wrist 3701249195308 02 Active 2022 Not Available [facility] 3 04:50:15 Acquired trigger finger of left ring finger 9675302431498 09 Active 2022 Not [facility] 3 04:50:16 Uncontroll ed type 2 diabetes mellitus 593012160 Active 2022 KAYKAY Gottlieb null, [place] - [facility] 3 13:42:09 Dyslipidem ia 152282335 Active 2022 Rosa Meeks MD [address] [place] [address], [address] [place], [address] , [employer] 3 21:53:24 Osteoarthr itis 943065310 Active 2022 Rosa Meeks MD [address], [place], [address] , [employer] [facility] 3 09:56:19 Well controlled type 2 diabetes mellitus 638238481 Active 2022 Rosa eMeks MD [address], [place], [address] , [employer] 3 14:31:36 Problem Notes None recorded. Procedures Surgical History Date Name Laterality Status Provider Name and Address Organization Details Recorded Time 2 Knee Surgery completed Not Available [facility] 023 04:41:40 coronary artery bypass grafts x 3 completed Not Available [facility] 10/05/2022 04:41:40 Knee Surgery completed Not Available [facility] 10/05/2022 04:41:40 Imaging Results None recorded. Procedure Notes None recorded. Medical Equipment None Reported. Allergies Allergen ID Allergen Name Allergen Category Reaction Reaction Severity Criticality Documentation Date Start Date Code Code System Note Provider Name and Address Organization Details Recorded Time 8679 Product containin g penicilli n (product) medicatio n Not available Not available Not available 10/05/2022 70777 8001 SNOMED Not Available [facility] 3 05:06:05 8681 hydrocodo ne Not available rash Not available Not available 10/05/2022 5489 RxNorm Not Available [facility] 3 05:06:05 8682 erythromy sultana medicatio n Not available Not available Not available 10/05/2022 4053 RxNorm Not Available [facility] 3 05:06:05 Medications Name Sig Start Date Stop Date Status Note LastModified by Organization Details LastModified Time carisopro dol 350 mg tablet 10/17 completed Not Available Not Available Not Available Qvar 80 mcg/actua tion Metered Aerosol oral inhaler INHALE 1 PUFF PO BID 10/17 completed Not Available Not Available Not Available fluticaso ne 250 mcg-salme terol 50 mcg/dose blistr powdr for inhalatio n 01/24 completed Not Available Not Available Not Available venlafaxi ne ER 37.5 mg capsule,e xtended release 24 hr 10/17 completed Not Available Not Available Not Available prednison e 10 mg tablet TAKE 1/2 (ONE-CARLTON F) TABLET BY MOUTH TWICE DAILY FOR 5 DAYS 05/09 completed Not Available Not Available Not Available venlafaxi ne ER 75 mg capsule,e xtended release 24 hr TAKE 1 CAPSULE BY MOUTH ONCE DAILY active Not Available Not Available No t Available doxycycli ne hyclate 100 mg capsule TAKE 1 CAPSULE BY MOUTH TWICE A DAY X 10 DAYS active Not Available Not Available No t Available azithromy sultana 250 mg tablet 10/17 completed Not Available Not Available Not Available nitroglyc cem 0.3 mg sublingua l tablet 10/17 completed Not Available Not Available Not Available aspirin 325 mg tablet Take 1 tablet every day by oral route. 03/05 completed Not Available Not Available Not Available Novolin N NPH U-100 Insulin isophane 100 unit/mL subcutane ous susp 10/17 completed Not Available Not Available Not Available benzonata te 200 mg capsule TAKE ONE CAPSULE BY MOUTH 3 TIMES A DAY NEEDED FOR COUGH 10/17 completed Not Available Not Available Not Available hydrocodo ne 5 mg-acetam inophen 325 mg tablet 10/17 completed Not Available Not Available Not Available meloxicam 15 mg tablet 10/17 completed Not Available Not Available Not Available bupivacai ne HCl 0.5 % (5 mg/mL) injection solution Take 20 mg by injectio n route. 01/24 completed Not Available Not Available Not Available prednison e 20 mg tablet TAKE 1 TABLET BY MOUTH ONCE DAILY FOR 30 DAYS 05/09 completed Not Available Not Available Not Available methylpre dnisolone 4 mg tablet 10/17 completed Not Available Not Available Not Available Nexium 40 mg capsule,d elayed release 10/17 completed Not Available Not Available Not Available hydrocodo ne 10 mg-acetam inophen 325 mg tablet 10/17 completed Not Available Not Available Not Available tramadol 50 mg tablet TAKE 1 TABLET BY MOUTH EVERY 6 HOURS NEEDED FOR PAIN 05/09 completed Not Available Not Available Not Available simvastat in 40 mg tablet 01/23 completed Not Available Not Available Not Available glimepiri de 2 mg tablet Take 2 tablets twice a day by oral route before meals for 90 days. 01/24 completed Not Available Not Available Not Available Cholestyr amine Light 4 gram powder for suspensio n in a packet USE 1 PACKET DAILY ADMINIST ER W/MEAL AVOID OTHER MEDS WITHIN 1HR BEFORE OR 4 6HR AFTER DOSE 01/24 completed Not Available Not Available Not Available prednison e 10 mg tablets in a dose pack Take 1 tab by mouth, 3 times a day for 3 daysTake 1 tab by mouth 2 times a day for 2 daysTake 1 tab by mouth once a day for 1 day 09/07 completed Not Available Not Available Not Available oxycodone -acetamin ophen 5 mg-325 mg tablet 10/17 completed Not Available Not Available Not Available Kenalog 10 mg/mL suspensio n for injection In office injectio n administ ered by the provider 01/24 completed NDC: 0003-049 11-24 Not Available Not Available Not Available benzonata te 100 mg capsule TAKE 1 CAPSULE BY MOUTH THREE TIMES A DAY FOR 10 DAYS NEEDED FOR COUGH 10/17 completed Not Available Not Available Not Available hydrocodo ne 7.5 mg-acetam inophen 325 mg tablet 10/17 completed Not Available Not Available Not Available simvastat in 20 mg tablet 10/17 completed Not Available Not Available Not Available lisinopri l 10 mg tablet TAKE 1 TABLET BY MOUTH ONCE DAILY IN THE MORNING active Not Available Not Available No t Available glimepiri de 4 mg tablet TAKE 1 TABLET BY MOUTH TWICE DAILY 01/24 completed Not Available Not Available Not Available warfarin 5 mg tablet TAKE 2 TABLETS BY MOUTH EVERY DAY 10/17 completed Not Available Not Available Not Available nitroglyc cem 0.4 mg sublingua l tablet PLEASE SEE ATTACHED FOR DETAILED DIRECTIO NS 03/05 completed Not Available Not Available Not Available gabapenti n 300 mg capsule 10/17 completed Not Available Not Available Not Available diclofena c sodium 75 mg tablet,de layed release Take 1 tablet twice a day by oral route. 01/24 completed Not Available Not Available Not Available hydrocodo ne 5 mg-acetam inophen 500 mg tablet 10/17 completed Not Available Not Available Not Available warfarin 1 mg tablet TAKE 4.5 TABLETS BY MOUTH DAILY 10/17 completed Not Available Not Available Not Available levofloxa sultana 500 mg tablet TAKE 1 TABLET BY MOUTH DAILY 10/17 completed Not Available Not Available Not Available methylpre dnisolone 4 mg tablets in a dose pack TAKE 6 TABLETS ON DAY 1 DIRECTED ON PACKAGE AND DECREASE BY 1 TAB EACH DAY FOR A TOTAL OF 6 DAYS 10/17 completed Not Available Not Available Not Available albuterol sulfate HFA 90 mcg/actua tion aerosol inhaler 1 PUFF INHALATI ON EVERY 4 HOURS NEEDED FOR SHORTNES S OF BREATH OR WHEEZING active Not Available Not Available No t Available glipizide 5 mg tablet TAKE 2 TABLETS BY MOUTH TWICE DAILY BEFORE MEAL(S) active Not Available Not Available No t Available esomepraz ole magnesium 20 mg capsule,d elayed release TAKE 1 CAPSULE BY MOUTH ONCE DAILY active Not Available Not Available No t Available enoxapari n 100 mg/mL subcutane ous syringe INJECT 90 MG SUBCUTAN EOUSLY TWICE A DAY FOR 5 DAYS DIRECTED 10/17 completed Not Available Not Available Not Available Novolog FlexPen U-100 Insulin aspart 100 unit/mL (3 mL) subcutane ous Inject by subcutan eous route for 84 days. active Not Available Not Available No t Available rosuvasta tin 20 mg tablet TK 1 T PO QD 10/17 completed Not Available Not Available Not Available rosuvasta tin 40 mg tablet TAKE 1 TABLET BY MOUTH ONCE DAILY AT BEDTIME active Not Available Not Available No t Available metoprolo l tartrate 25 mg tablet TAKE 1 TABLET BY MOUTH TWICE DAILY active Not Available Not Available No t Available Nexium 09/25 completed Not Available Not Available Not Available Novolog FlexPen U-100 Insulin 09/25 completed Not Available Not Available Not Available lidocaine (PF) 10 mg/mL (1 %) injection solution In office injectio n administ ered by the provider 09/07 completed [facility]: 0409-427 01-21 Not Available Not Available Not Available BD Ultra-Fin e Short Pen Needle 31 gauge x 5/16 USE DIRECTED 4 TIMES A DAY active Not Available Not Available No t Available fenofibra te nanocryst allized 145 mg tablet TAKE 1 TABLET BY MOUTH EVERY DAY IN THE MORNING 01/24 completed Not Available Not Available Not Available Symbicort 80 mcg-4.5 mcg/actua tion HFA aerosol inhaler active Not Available Not Available Not Available fenofibra te 54 mg tablet TK 1 T PO DAILY 01/23 completed Not Available Not Available Not Available fenofibri c acid (choline) 135 mg capsule,d elayed release TAKE ONE CAPSULE BY MOUTH EVERY DAY 10/17 completed Not Available Not Available Not Available Brilinta 90 mg tablet TAKE 1 TABLET (90 MG TOTAL) BY MOUTH 2 (TWO) TIMES A DAY 01/24 completed Not Available Not Available Not Available ropivacai ne (PF) 5 mg/mL (0.5 %) injection solution Take 10 mg by injectio n route. 01/24 completed [facility] 11705-06 11-05 Not Available Not Available Not Available OneTouch Verio test strips TAKE 1 STRIP 4 TIMES A DAY BY MISCELL ROUTE DIRECTED FOR 90 DAYS. active Not Available Not Available No t Available BD Insulin Syringe Ultra-Fin e 1 mL 31 gauge x 5/16 active Not Available Not Available Not Available Levemir FlexTouch U-100 Insulin 100 unit/mL (3 mL) subcutane ous pen INJ 55 UNITS SC D 10/17 completed Not Available Not Available Not Available Afluria (PF) 45 mcg (15 mcg x 3)/0.5 mL intramusc ular syringe TO BE ADMINIST ERED BY PHARMACI ST FOR IMMUNIZA TION 06/28 completed Not Available Not Available Not Available Jardiance 25 mg tablet Take 1 tablet every day by oral route in the morning for 30 days. 01/23 completed Not Available Not Available Not Available Trulicity 1.5 mg/0.5 mL subcutane ous pen injector inject 1.5 mg SQ once weekly with largest meal 01/24 completed Not Available Not Available Not Available Trulicity 0.75 mg/0.5 mL subcutane ous pen injector Inject 0.75 mg every week by subcutan eous route at dinner for 30 days. active patient to start on 0.75 mg once weekly x 4 weeks then increase to 1.5 mg SQ weekly thereaft er with food Not Available Not Available Not Available Brilinta 60 mg tablet TAKE 1 TABLET BY MOUTH TWICE DAILY active Not Available Not Available No t Available Tresiba FlexTouch U-200 insulin 200 unit/mL (3 mL) subcutane ous pen INJECT 20 UNITS SUBCUTAN EOUSLY ONCE DAILY DIRECTED active Not Available Not Available No t Available Basaglar KwikPen U-100 Insulin 100 unit/mL (3 mL) subcutane ous 17 units in the morn. 35 units after dinner 01/23 completed Not Available Not Available Not Available Fluzone High-Dose 9472-1928 (PF) 180 mcg/0.5 mL intramusc ular syringe ADM 0.5ML IM UTD 06/28 completed Not Available Not Available Not Available Ozempic 0.25 mg or 0.5 mg (2 mg/1.5 mL) subcutane ous pen injector inject 0.5 mg once weekly with food x 90 days 11/26 completed Not Available Not Available Not Available FreeStyle Vangie 2 Sensor kit active Not Available Not Available Not Available Fluzone High-Dose Quad (PF) 240 mcg/0.7 mL IM syringe PHARMACY ADMINIST ERED 06/28 completed Not Available Not Available Not Available BinaxNOW COVID-19 Ag Self Test kit Use as Directed on the Package 01/24 completed Not Available Not Available Not Available Kerendia 10 mg tablet Take 1 tablet every day by oral route in the morning for 90 days. 01/24 completed Not Available Not Available Not Available Vitals Date Recorded Body mass index (BMI) Body height Body weight Provider Name and Address Organization Details Last Updated DateTime 09/05/2022 26.4 kg/m2 177.8 cm 48749 g Not Available [facility] 10/05/2022 04:43:38 Date Recorded Body mass index (BMI) Body height Body weight Provider Name and Address Organization Details Last Updated DateTime 10/03/2022 25.7 kg/m2 177.8 cm 19858.03 g Not Available [facility] 10/05/2022 04:43:38 Date Recorded Body height Body mass index (BMI) Body weight Body temperature Heart rate Systolic And Diastolic Provider Name and Address Organization Details Last Updated DateTime 3 177.8 cm 26.1 kg/m2 17824.8 1 g 97.2 [degF] 109 /min 159/92 mm[Hg] KAYKAY Alonso [facility] 3 09:30:05 Date Recorded Body height Body mass index (BMI) Body weight Respiratory rate Body temperature Heart rate Systolic And Diastolic Provider Name and Address Organization Details Last Updated DateTime 3 177.8 cm 26.7 kg/m2 96422.6 2 g 14 /min 97.7 [degF] 68 /min 129/79 mm[Hg] Sharon Vaughn RN [facility] [employer] 3 14:19:37 Social History Question Answer Notes LastModified by [address] Bio Details LastModified Time Tobacco Smoking Status Former Smoker Not Available [facility] 10/05/2022 04:12:02 What Is Your Level Of Caffeine Consumption? Moderate [id number] Information not available 10/05/2022 When Did You Quit Smoking? 6-10yearssinc elastcigarett e [id number] Information not available 10/05/2022 What Was The Date Of Your Most Recent Tobacco Screening? 06/28/2021 [id number] Information not available 10/05/2022 What Is Your Relationship Status? [id number] Information not available 10/05/2022 Sex: Male Functional Status Question Answer Note LastModified by [address] Bio Details LastModified Time Do you use any illicit or recreational drugs? No [id number] Information not available 10/05/2022 Do you or have you ever used any other forms of tobacco or nicotine? No [id number] Information not available 10/05/2022 What is your level of alcohol consumption? Occasional [id number] Information not available 10/05/2022 Mental Status None recorded. Family History Relationship Description Onset Age of this Age Resolved Age Notes LastModified by Organization Details LastModified Time Mother Heart disease [id number] Not available 10/05/2022 04:41:45 Mother Myocardial infarction [id number] Not available 10/05/2022 04:41:45 Brother Heart disease 3 brothe r [id number] Not available 10/05/2022 04:41:45 Brother Myocardial infarction [id number] Not available 10/05/2022 04:41:45 Brother Disease of liver [id number] Not available 10/05/2022 04:41:45 Medical History Condition Response DIABETES, TYPE Y HYPERTENSION Y HIGH CHOLESTEROL / HYPERLIPIDEMIA Y Past Encounters Encounter ID Performer Location Encounter Start Date Encounter Closed Date Diagnosis/Indication Diagnosis SNOMED-CT Code Diagnosis ICD10 Code Diagnosis Note [id number] Rosa Meeks MD [facility] [address] [place] [address] 03/05/2021 00:00:00 03/05/2021 12:56:44 [id number] Bahman Hays MD [facility] [address] [place] [address] 06/28/2021 00:00:00 06/28/2021 11:08:28 [id number] Bahman Hays MD [facility] [address] [place] [address] 07/15/2021 00:00:00 07/15/2021 09:55:52 [id number] Bahman Hays MD [facility] [address] [place] [address] 09/07/2021 00:00:00 09/07/2021 14:07:52 [id number] Bahman Hays MD [facility] [address] [place] [address] 10/28/2021 00:00:00 10/28/2021 11:22:16 [id number] Rosa Meeks MD [facility] [address] [place] [address] 11/26/2021 00:00:00 11/26/2021 11:34:49 [id number] Bahman Hays MD [facility] [address] [place] [address] 05/19/2022 00:00:00 05/19/2022 11:34:22 [id number] Bahman Hays MD [facility] [address] [place] [address] 06/16/2022 00:00:00 06/16/2022 11:51:18 [id number] Rosa Meeks MD [facility] [address] [place] [address] 07/22/2022 00:00:00 07/22/2022 13:41:57 [id number] Bahman Hays MD [facility] [address] [place] [address] 08/09/2022 00:00:00 08/09/2022 14:50:42 [id number] Bahman Hays MD [facility] [address] [place] [address] 09/05/2022 00:00:00 09/05/2022 10:30:04 [id number] Bahman Hays MD [facility] [address] [place] [address] 10/03/2022 00:00:00 10/03/2022 11:34:15 [id number] Rosa Meeks MD [facility] [address] [place] [address] 01/24/2023 09:21:57 01/24/2023 10:09:05 Uncontrolled type 2 diabetes mellitus 376169512 E11.65 Dyslipidemia 123437077 E 78.5 Osteoarthritis 477396669 M19.90 [id number] Rosa Meeks MD [facility] [address] [place] [address] 05/09/2023 13:53:45 05/09/2023 14:42:07 Well controlled type 2 diabetes mellitus 458593732 E11.9 A1C of 7.3% stable- patient advised to never take glipizide at bedtime and to make sure he takes with breakfast and with dinner and to hold if premeals under 110 mg/dL and take full dose if over 180 mg/dL to avoid hypoglycem ia. Continue on tresiba 40 units at bedtime and patient aware to increase or decrease by 4 units every 4 days to maintain fasting glucose 90-130 mg/dL. Continue novolog scale prior to meals if needed/onl y if over 200 mg/dL. He has done well with freestyle vangie sensor and consistent with use- this has kept him out of hospital and has prevented significan t hypoglycem ia. Refer to endocrinol ogy per patient request. Dyslipidemia 048912015 E 78.5 LDL in range- continue statin therapy. Spent up to 25 minutes preparing to see the patient (eg, review of tests), obtaining and/or reviewing separately obtained history, performing a medically appropriat e examinatio n and evaluation , counseling and educating the patient, ordering medication s, tests, along with documentin g clinical informatio n in the electronic health record, independen tly interpreti ng results and communicat ing results to the patient. Patient can be followed by PCP - she/he is aware of my resignatio n and last day of May 19. If needed his/her PCP can refer patient to another endocrinol ogist in the area. All questions /concerns answered and refills necessary at visit today. Health Concerns Section Related Observation LastModified by Organization Detai ls LastModified Time None Recorded Concern Status LastModified by Organization Details LastModified Time None Recorded Advance Directives Directive None Recorded Payers Insurance Date Sequence Insurance Name Policy Number Policy Valiente Covered Member ID Valiente Member ID Guarantor Name 05/07/2023 1 [facility] (MEDICARE REPLACEMENT/A DVANTAGE - PPO) [id number] Yrn Mata [id number] Yrn Mata Notes Date Note Type Note Provider Name and Address Organization Details Recorded Time 08/09/2022 text/html Wrist/HandReport ed bypatient.Location :[facility] Quality:aching; sharp; deep; occasional; worsening Severity:moderate Duration:continuou s since onset Timing:chronic; recurrent Alleviating Factors:ice; rest; elevation; OTC medication; NSAIDs; brace Aggravating Factors:carrying; twisting; gripping; grasping; squeezing Associated Symptoms:no tingling; no redness; no ecchymosis; no popping/clicking; no buckling; no grinding; no instability; no radiation; no drainage; no fever; no chills; no weight loss; no change in bowel/bladder habits;weakness;nu mbness;swelling;wa rmth;catching/lock ing Not Available [employer] 08/09/2022 14:50:42 01/24/2023 text/html 72 yo female com es in for follow up in management of overall uncontrolled type 2 DM (A1C not drawn), dyslipidemia. last seen in Jul at that time we had patient cut tresiba down to 30 units at bedtime and increase or decrease by 4 unit every 4 days until fasting glucose 90 - 130 mg/dL.Discussed carb counting and how to read food labels. Recommended patient to utilize the Coupons[employer]com.co m from the ADA website to help with food preparation as this presents ideal carb content per meal so this will make carb counting much easier for patient. He is only taking insulin at this time. He is up to 40 units of tresiba at bedtime. He is taking novolog correction before meals. He did try ozempic but it was too expensive in the past. Farxiga/jardiance and all GLP1 agonist therapies are over 200$ per month. Per freestyle sensor average glucose 190 mg/dL in range 55% of time and high 44% of time and hypoglycemia 1 % of time he is taking rosuvastatin 40 mg daily and LDL in range labs from 10/27:glucose 155 mg/dLcr 1.1 mg/dL labs from 11/27:glucose 253 mg/dL119/198/33/44 TSH of 1.560 uIU/mlB12/folate normalLFT normalCr normal Rosa Meeks MD [address] [facility] [address], [place], [address], [employer] 01/24/2023 10:04:49 05/09/2023 text/html 72 yo male comes in for follow up in management of type 2 DM (A1C of 7.3%), dyslipidemia. last seen in January at that time we continued glipizide scale. Sugars are running 73 mg/dL up to 130 mg/dLhas a few outliers over 140 mg/dL and very few sugars under 70 mg/dL (64 mg/dL lowest). He is taking 40 units of tresiba at bedtime. He typically takes up to 8 units at the most. He doesn't take novolog unless sugars over 200 mg/dL. He has taken glipizide at bedtime a few times but not regularly and aware to take with dinner. He is taking lisinopril and BP controlled. labs from 03/07/23:a1c of 7.3%glucose 130 mg/DL144/142/45/54 TSH of 2.060 uIU/mlCCP negativeRF negANA negLFT normalCr urxrjt32.4/43 Rosa Meeks MD [address] [facility] [facility] [address], [place], [address], [facility] 05/09/2023 14:39:19
--- OUTSIDE RECORDS SUMMARY | 2025-02-25 14:49 | XMS_ITS | Clinical Summary ---
Author Organization [facility] Address [address] [place] [id number] Care Team Providers Care Application Lead Name Role Phone Unavailable Primary Care Provider Unavailabl e Social History Tobacco Use Types Packs/Day Years Used Date Smoking Tobacco: Never Assessed Sex and Gender Information Value Date Recorded Sex Assigned at Not on file Legal Sex Male 5:16 PM CDT Gender Identity Not on file Sexual Orientation Not on file Plan of Treatment Health Maintenance Due Date Last Done Comments Hepatitis C 1966 DTaP, Tdap and Td Vaccines ( 1 - Tdap) 12/19/1967 Pneumococcal Vaccine: 50+ Ye ars (1 of 1 - PCV) 1998 Zoster Vaccines (1 of 2) 1998 RSV Immunization or 60+ Years (1 - 1-dose 75+ series) 12/19/2023 COVID-19 Vaccine ( - 2023-2 5 season) 2024 Meningococcal B Vaccine Aged Out No l onger eligible based on patient's age to complete this topic Meningococcal Vaccine Aged Out No adalid guzman eligible based on patient's age to complete this topic RSV Immunizations Under 20 Months Aged Out No longer eligible based on patient's age to complete this topic
--- OUTSIDE RECORDS SUMMARY | 2025-02-25 14:49 | XMS_ITS | Clinical Summary ---
Author Organization [facility] Address [address] [place] [id number] Care Team Providers Care Barrel Liner Name Role Phone Kandy Carrillo MD Primary Care Provider [phone] Allergies Active Allergy Reactions Criticality Noted Date [...] 3 doses total 90 tablet 1 Active insulin aspart U-100 (NovoLOG) 100 [...] 4 (four) hours as needed 4 Active rosuvastatin (CRESTOR) 40 mg tablet Take 1 tablet by mouth nightly 90 tablet 2 4 Active rivaroxaban (Xarelto) 2.5 mg tablet Take 1 tablet by mouth twice daily 180 tablet 1 5 Active Trulicity 1.5 mg/0.5 mL pen injector 5 Active Active Problems Problem Noted Date Diagnosed [...] (09/17/2020): Added automatically from request for surgery [id number] Atypical chest pain 08/06/2020 Gastroesophageal reflux disease 08/06/2020 Former smoker 08/06/2020 Hypertension associated with diabetes 08/06/2020 Hyperlipidemia associated with type 2 diabetes m ellitus 08/06/2020 Type 2 diabetes mellitus 10/18/2019 Coronary artery disease of n ative artery of [place] heart with stable angina pectoris 09/21/2010 Surgical [...] more drinks on one occasion? 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 Gender Identity Not on file Sexual Orientation Not on file Obstetrics History Last Filed Vital Signs Vital Sign Reading Time Taken Comments Blood Pressure 136/78 11/25/2024 9:08 AM CDT Pulse 82 11/25/2024 9:08 AM CDT Temperature 36.7 C (98.1 F) 10/09/2020 7:00 AM NETWORK OPERATIONS ANALYST Respiratory Rate 18 10/09/2020 7:00 AM NETWORK OPERATIONS ANALYST Oxygen Saturation 98% 11/25/2024 9:08 AM CDT Inhaled Oxygen Concentration - - Weight 81.6 kg (180 lb) 11/25/2024 9:08 AM CDT Height 177.8 cm (5' 10) 11/25/2024 9:08 AM CDT Body Mass Index 25.83 11/25/2024 9:08 AM CDT Plan of Treatment Health Maintenance Due Date Last Done Comments Albumin Creatinine Ratio, Urine 1948 Depression Screening 1948 Hemoglobin A1C 1948 Hepatitis C Screening 1948 eGFR 1948 Dilated Eye Exam 1948 Foot Exam 1948 DTaP/Tdap/Td Vaccine (1 - Tdap) 12/19/1959 Hepatitis B Screening 1966 Pneumococcal vaccine 65+ (1 of 2 - PCV) 12/19/1967 Zoster Vaccine (1 of 2) 1998 Abdominal Aortic Aneurysm (A AA) Screen 2013 Well Visit 65+ 2013 Fall Risk Assessment 10/08/2021 10/08/2020 Influenza Vaccine (#1) 2025 , 05/07/2019, 05/25/2018, Additional history exists Lipid Panel 11/25/2025 11/25/2024, 02/0 02/2024, 09/01/2022, Additional history exists Medical Devices Implanted Type Area Vibratory Pile Driver Device Identifier Shelf Expiration Date Model / Serial / Lot [employer] X [id number] Resolute [place] 3mm 2.1-2.7fr 34mm 140cm Rapid Exchange Radiopaque - [id number] Implanted:Qty: 1 on 10/08/2020 by Riley Walden MD at [facility] [employer] [id number] X / / Procedures Procedure Name Priority Date/Time Associated Diagnosis Comments POCT LIPID PANEL Routine 11/25/2024 9:10 AM CDT Coronary artery disease of [place] artery of [place] heart with stable angina pectoris Hyperlipidemia associated with type 2 diabetes mellitus (HCC) from Last 3 Months or Most Recently Relevant to Health Maintenance Results * POCT lipid panel (11/25/2024 9:10 AM CDT) Cholesterol, POC 143 mg/dL HDL, POC 40 mg/dL Triglycerides, POC 209 mg/dL LDL Cholesterol POC 60 mg/dL Chol/HDL Ratio, POC 1.5 Non-HDL Cholesterol, POC 102 mg/dL Cholesterol Total, POC 143 mg/dL Capillary blood 11/25/2024 9 :10 AM CDT us Moe Rodríguez MD POINT OF CARE TEST ORDERA BLES Final Result from Last 3 Months or Most Recently Relevant to Health Maintenance Insurance [employer] MEDICARE ADVANTAGE [facility] Address: [address] [place], [place] [id number] [employer] MED[employer]ARE [employer]VANTAGE [facility] Address: [address] [address] [place] [address] [employer] MEDICARE ADVANTAGE [facility] Address: [address] [address] [place] [address] [facility] MEDIC[facility] Address: [address] [address] [place] [address] Care Teams Barrel Liner Relationship Specialty Start Date End Date Kandy Carrillo MD PCP - General 10/10/16
--- OUTSIDE RECORDS SUMMARY | 2025-02-25 14:49 | XMS_ITS | Referral Summary ---
Author Organization [facility] Address [address] [place] [id number] Care Team Providers Care Insurance Executive Name Role Phone Kandy Carrillo MD Primary Care Provider [phone] Allergies Active Allergy Reactions Criticality Noted Date [...] (09/17/2020): Added automatically from request for surgery [id number] Atypical chest pain 08/06/2020 Gastroesophageal reflux disease 08/06/2020 Former smoker 08/06/2020 Hypertension associated with diabetes 08/06/2020 Hyperlipidemia associated with type 2 diabetes m ellitus 08/06/2020 Type 2 diabetes mellitus 10/18/2019 Coronary artery disease of n ative artery of [place] heart with stable angina pectoris 09/21/2010 Social [...] on file Legal Sex Male 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 OPERATOR Gender Identity Not on file Sexual Orientation Not on file Last Filed Vital Signs Vital Sign Reading Time Taken Comments Blood Pressure 136/78 11/25/2024 9:08 AM CDT Pulse 82 11/25/2024 9:08 AM CDT Temperature 36.7 C (98.1 F) 10/09/2020 7:00 AM CD REACTOR OPERATOR Respiratory Rate 18 10/09/2020 7:00 AM CD REACTOR OPERATOR Oxygen Saturation 98% 11/25/2024 9:08 AM CDT Inhaled Oxygen Concentration - - Weight 81.6 kg (180 lb) 11/25/2024 9:08 AM CDT Height 177.8 cm (5' 10) 11/25/2024 9:08 AM CDT Body Mass Index 25.83 11/25/2024 9:08 AM CDT Plan of Treatment Not on file Medical Devices Implanted Type Area Cotton Program Technician Device Identifier Shelf Expiration Date Model / Serial / Lot [employer] X [id number] Resolute Oli 3mm 2.1-2.7fr 34mm 140cm Rapid Exchange Radiopaque - [id number] Implanted:Qty: 1 on 10/08/2020 by Riley Walden MD at [facility] [employer] [id number] X / / Procedures Procedure Name Priority Date/Time Associated Diagnosis Comments POCT LIPID PANEL Routine 11/25/2024 9:10 AM CDT Coronary artery disease of [place] artery of [place] heart with stable angina pectoris Hyperlipidemia associated [...] Capillary blood 11/25/2024 9 :10 AM CDT Moe Rodríguez MD POINT OF CARE TEST ORDERA BLES Final Result from Last 3 Months or Most Recently Relevant to Health Maintenance Insurance [facility] MEDICARE ADVANTAGE [facility] MEDICARE ADVANTAGE [facility] MEDICARE ADVANTAGE [facility] MEDICARE ADVANTAGE Care Teams Insurance Executive Relationship Specialty Start Date End Date Kandy Carrillo MD [phone] (work) PCP - General 10/10/16
== END 2025-02-25 14:45 | disposition home or self-care (01) ==
PROVIDERS: PCP Family Medicine; Visit Provider Family Medicine
DX: R91.1 Solitary pulmonary nodule (principal)
CPT/HCPCS: 71250

== ENCOUNTER 2025-05-10 19:52 | Emergency (ER) | payer MEDICARE, SELFPAY ==
--- NOTE | ~2025-05-10 | CT_ITS ---
CHEST ABDOMEN PELVIS WITH CONTRAST CLINICAL HISTORY: R flank/rib pain s/p fall . COMPARISON: CT chest 02/23/2025 TECHNIQUE: Helical CT performed from thoracic inlet to symphysis pubis 100 mL Omnipaque 350 Coronal, sagittal reformats. Multi planar MIPS CT images acquired with automatic exposure control for dose reduction DLP: 783 mGy-cm FINDINGS: CHEST- Lungs/Pleura: Clear. Thoracic Aorta: No dissection. No aneurysm. Pulmonary arteries: Normal caliber. Heart: Unremarkable. Tracheobronchial tree: Patent. Nodes: No enlarged nodes. Bones: Fractures right ribs 8-10. Soft tissues: Unremarkable. ABDOMEN/PELVIS- Liver: Enlarged. Steatosis. Gallbladder: Unremarkable. Spleen: Unremarkable. Pancreas: Unremarkable. Adrenal glands: Unremarkable. Kidneys: Lobulated contour. Right kidney- No hydronephrosis. No renal stones. Left kidney- No hydronephrosis. No renal stones. Distal esophagus/stomach: Unremarkable. Small bowel loops: Normal caliber and wall thickness. Colon: Normal caliber and wall thickness. Normal RLQ appendix. Nodes: No enlarged nodes. Peritoneum: No ascites. No free air. Urinary bladder: Unremarkable. Prostate: Unremarkable. Bones: No acute bony abnormality. Soft tissues: Unremarkable. Aorta: No aneurysm or dissection. Atherosclerotic disease IVC: Unremarkable. Main portal vein/SMV/splenic vein: Patent. IMPRESSION: CHEST- 1. Fractures right ribs 8-10. 2. Otherwise no acute abnormality. ABDOMEN/PELVIS- 1. No acute findings. Reviewed, dictated and finalized at location R.
[2025-05-10 19:51] VITALS: BP 161/72; PULSE 74; RESP 15; TEMP 36.5; O2SAT 99
--- OUTSIDE RECORDS SUMMARY | 2025-05-10 20:23 | XMS_ITS | Data Portability ---
Author Organization [place] [facility] [employer], Main Office Address [address] [place] [address] Care Team Providers Care Proposal Consultant Name Role Phone IDALIA MONROE Primary Care Provider IDALIA MONROE Referring Provider Assessment No assessment recorded. Plan of Treatment Reminders Order Date Submit Date Provider Last Modified By Organization Details Last Modified Time Details Appointments None recorded. Lab rf (rheumatoid factor), serum [address] [place] [address] (Lab), [address] [place] [address], [address], 3 09:57:45 ccp (cyclic citrullinat ed peptide) iga+igg, serum [address] [place] [address] (Lab), [address] [place] [address], [address], 3 09:57:45 ESR (erythrocyt e sedimentati on rate), blood [address] [place] [address] (Lab), [address] [place] [address], [address], 3 09:57:46 C reactive protein, QN, serum or plasma [address] [place] [address] (Lab), [address] [place] [address], [address], 3 09:57:46 MASON (antinuclea r antibodies) screen, serum [address] (Lab), [address] [place] [address], [address], 3 09:57:46 lipid panel, serum [address] (Lab), [address] [place] [address], [address], 3 09:57:46 TSH + free T4, serum [address] (Lab), [address] [place] [address], [address], 3 09:57:46 CMP, serum or plasma 2022 023 [facility] (Lab), [address] [place] [address], [address], 3 16:32:09 HbA1c (hemoglobin A1c), blood [address] (Lab), [address] [place] [address], [address], 3 09:57:46 microalbumi n/creatinin e, mass ratio, urine [address] (Lab), [address] [place] [address], [address], 3 09:57:45 Referral endocrinolo gy referral 2022 023 [email or web address] Heide Villa MD, [address],, [facility], [place], [address], 3 14:42:07 Procedures None recorded. Surgeries None recorded. Imaging None recorded. Medication Orders Tresiba FlexTouch U-200 insulin 200 unit/mL (3 mL) subcutaneou s pen 2022 023 [facility] [place], [address], 3 14:32:02 glipizide 5 mg tablet 2022 023 [facility] [place], [address], 3 14:33:13 glipizide 5 mg tablet 2022 023 [facility] [address] [place], [address], 3 09:53:56 Patient TargetsNo targets recorded. Patient InstructionsNo instructions recorded. Reason for Referral Endocrinology Referral for W ell controlled type 2 diabetes mellitus Referring Physician: Rosa Meeks, Endocrinology, Encounter Date: 05/09/2023 Results Created Date Observation Date Name Description Value Unit Range Abnormal Flag Note LastModifiedBy Organization Detail LastModifiedTime 07/20/20 22 07/20/2022 elect umair thomas am No observ ation record ed. [id number] [facility] (Resp Services) [address] [place] [address] [address] [facility], [place], [address], 10/05/2022 05:06:44 Result Notes None recorded. Problems Name Problem SNOMED Code Status Onset Date Resolution Date Notes Provider Name and Address Organization Details Recorded Time Acquired trigger finger 4745929 Active Not Available [facility] 3 04:50:15 Radiothera py follow-up 320394719 Active Not Available [facility] 3 04:50:15 Current tear of medial cartilage AND/OR meniscus of knee Active Not Available [facility] 3 04:50:16 Knee pain Active Not Available [facility] 3 04:50:16 Sprain of metacarpop halangeal joint 28580630 Active Not Available [facility] 3 04:50:16 Arthropath y of joint of hand 458382877 Active Not Available [facility] 3 04:50:16 Disorder of bursa of shoulder region 07291131 Active Not Available [facility] 3 04:50:17 Sprain of wrist 33283696 Active Not Available [facility] 3 04:50:17 Type 2 diabetes mellitus 17844584 Active 2019 Not Available [facility] 3 04:50:17 Hyperlipid emia 44877922 Active 2019 Not Available [facility] 3 04:50:17 Osteoarthr itis of right knee joint 4435709533805 00 Active 2021 Not Available [facility] 3 04:50:16 Pain of right hand 9259302326847 09 Active 2021 Not Available [facility] 3 04:50:16 Derangemen t of right knee 2195701623038 9109 Active 2021 Not Available [facility] 3 04:50:15 Osteoarthr itis of knee 672559922 Active 2021 Not Available [facility] 3 04:50:15 Tear of medial meniscus of knee 737504306 Active 2021 Not Available [facility] 3 04:50:15 Acquired trigger finger of right index finger 2577040725654 Active 2021 Not Available [facility] 3 04:50:16 Pain of right knee joint 2493781362801 00 Active 2021 Not Available [facility] 3 04:50:17 Carpal tunnel syndrome of left wrist 4453455500066 02 Active 2022 Not Available [facility] 3 04:50:15 Acquired trigger finger of left ring finger 1964925853352 09 Active 2022 Not Available [facility] 3 04:50:16 Uncontroll ed type 2 diabetes mellitus 908531601 Active 2022 KAYKAY Gottlieb null, [place] - [facility] 3 13:42:09 Dyslipidem ia 236223643 Active 2022 Rosa Meeks MD [address] [place] [address], [address] [place], [address] , [employer] 3 21:53:24 Osteoarthr itis 103866647 Active 2022 Rosa Meeks MD [address], [place], [address] , [employer] boarding pass [facility] 3 09:56:19 Well controlled type 2 diabetes mellitus 238611045 Active 2022 Roas Meeks MD [address], [place], [address] , [employer] 3 14:31:36 Problem Notes None recorded. Procedures Surgical History Date Name Laterality Status Provider Name and Address Organization Details Recorded Time 2 Knee Surgery completed Not Available [facility] 023 04:41:40 coronary artery bypass grafts x 3 completed Not Available [facility] 10/05/2022 04:41:40 Knee Surgery completed Not Available [facility] 10/05/2022 04:41:40 Imaging Results None recorded. Procedure Notes None recorded. Medical Equipment None Reported. Allergies Allergen ID Allergen Name Allergen Category Reaction Reaction Severity Criticality Documentation Date Start Date Code Code System Note Provider Name and Address Organization Details Recorded Time 8679 Product containin g penicilli n (product) medicatio n Not available Not available Not available 10/05/2022 99837 8001 SNOMED Not Available [facility] 3 05:06:05 8681 hydrocodo ne Not available rash Not available Not available 10/05/2022 5489 RxNorm Not Available [facility] 3 05:06:05 8682 erythromy sultana medicatio n Not available Not available Not available 10/05/2022 4053 RxNorm Not Available [facility] 3 05:06:05 Medications Name Sig Start Date [...] administ ered by the provider 09/07 completed [facility]: 0409-427 01-21 Not Available Not Available Not [...] mg by injectio n route. 01/24 completed [facility] 09761-18 11-05 Not Available Not Available Not Available [...] Available Not Available Not Available Fluzone High-Dose 3947-1689 (PF) 180 mcg/0.5 mL intramusc ular syringe [...] Updated DateTime 09/05/2022 26.4 kg/m2 177.8 cm 77395 g Not Available [facility] 10/05/2022 04:43:38 Date Recorded Body mass index (BMI) Body height Body weight Provider Name and Address Organization Details Last Updated DateTime 10/03/2022 25.7 kg/m2 177.8 cm 22366.03 g Not Available [facility] 10/05/2022 04:43:38 Date Recorded Body height Body mass index (BMI) Body weight Body temperature Heart rate Systolic And Diastolic Provider Name and Address Organization Details Last Updated DateTime 3 177.8 cm 26.1 kg/m2 01299.8 1 g 97.2 [degF] 109 /min 159/92 mm[Hg] KAYKAY Alonso [facility] [employer] [facility] 3 09:30:05 Date Recorded Body height Body mass index (BMI) Body weight Respiratory rate Body temperature Heart rate Systolic And Diastolic Provider Name and Address Organization Details Last Updated DateTime 3 177.8 cm 26.7 kg/m2 68356.6 2 g 14 /min 97.7 [degF] 68 /min 129/79 mm[Hg] Sharon Vaughn RN [facility] [employer] [facility] [employer] 3 14:19:37 Social History Question Answer Notes LastModified by [employer] Details LastModified Time Tobacco Smoking Status Former Smoker Not Available [facility] 10/05/2022 04:12:02 What Is Your Level Of Caffeine Consumption? Moderate [id number] Information not available 10/05/2022 When Did You Quit Smoking? 6-10yearssinc elastcigarett e [id number] Information not available 10/05/2022 What Was The Date Of Your Most Recent Tobacco Screening? 06/28/2021 [id number] Information not available 10/05/2022 What Is Your Relationship Status? [id number] Information not available 10/05/2022 Sex: Male Functional Status Question Answer Note LastModified by [employer] Details LastModified Time Do you use any illicit or recreational drugs? No [id number] Information not available 10/05/2022 Do you or have you ever used any other forms of tobacco or nicotine? No [id number] 026 Information not available 10/05/2022 What is your level of alcohol consumption? Occasional [id number] Information not available 10/05/2022 Mental Status None recorded. Family History Relationship Description Onset Age of this Age Resolved Age Notes LastModified by Organization Details LastModified Time Mother Heart disease [id number] Not available 10/05/2022 04:41:45 Mother Myocardial infarction [id number].040 [id number] Not available 10/05/2022 04:41:45 Brother Heart disease 3 brothe r [id number].355 [id number] Not available 10/05/2022 04:41:45 Brother Myocardial infarction [id number].084 [id number] Not available 10/05/2022 04:41:45 Brother Disease of liver [id number].200 [id number] Not available 10/05/2022 04:41:45 Medical History Condition Response DIABETES, TYPE Y HYPERTENSION Y HIGH CHOLESTEROL / HYPERLIPIDEMIA Y Past Encounters Encounter ID Performer Location Encounter Start Date Encounter Closed Date Diagnosis/Indication Diagnosis SNOMED-CT Code Diagnosis ICD10 Code Diagnosis IMO Codes Diagnosis Note [id number] Rosa Meeks MD [facility] [address] [place] [address] 03/05/2021 00:00:00 03/05/2021 12:56:44 [id number] Bahman Hays MD [facility] [address] [place] [address] 06/28/2021 00:00:00 06/28/2021 11:08:28 [id number] Bahman Hays MD [facility] [address] [place] [address] 07/15/2021 00:00:00 07/15/2021 09:55:52 [id number] Bahman Hays MD [facility] [address] [place] [address] 09/07/2021 00:00:00 09/07/2021 14:07:52 [id number] Bahman Hays MD [facility] [address] [place] [address] 10/28/2021 00:00:00 10/28/2021 11:22:16 [id number] Rosa Meeks MD [facility] [address] [place] [address] 11/26/2021 00:00:00 11/26/2021 11:34:49 [id number] Bahman Hays MD [facility] [address] [place] [address] 05/19/2022 00:00:00 05/19/2022 11:34:22 [id number] Bahman Hays MD [facility] [address] [place] [address] 06/16/2022 00:00:00 06/16/2022 11:51:18 [id number] Rosa Meeks MD [facility] [address] [place] [address] 07/22/2022 00:00:00 07/22/2022 13:41:57 [id number] Bahman Hays MD [facility] [address] [place] [address] 08/09/2022 00:00:00 08/09/2022 14:50:42 [id number] Bahman Hays MD [facility] [address] [place] [address] 09/05/2022 00:00:00 09/05/2022 10:30:04 [id number] Bahman Hays MD [facility] [address] [place] [address] 10/03/2022 00:00:00 10/03/2022 11:34:15 [id number] Rosa Meeks MD [facility] [address] [place] [address] 01/24/2023 09:21:57 01/24/2023 10:09:05 Uncontrolled type 2 diabetes mellitus 865212166 E11.65 Dyslipidemia 844380204 E 78.5 Osteoarthritis 608730481 M19.90 [id number] Rosa Meeks MD [facility] [address] [place] [address] 05/09/2023 13:53:45 05/09/2023 14:42:07 Well controlled type 2 diabetes mellitus 444967911 E11.9 A1C of 7.3% stable- patient advised [...] to endocrinol ogy per patient request. Dyslipidemia 208481613 E 78.5 LDL in range- continue statin [...] [employer] Member ID Guarantor Name 05/07/2023 1 [facility] (MEDICARE REPLACEMENT/A DVANTAGE - PPO) [id number] Yrn Mata [id number] Yrn Mata Notes Date Note Type Note Provider Name and Address Organization Details Recorded Time 01/24/2023 text/html ROS as noted in the HPI 72 yo female comes in for follow up in management [...] food labels. Recommended patient to utilize the diabetesfoodhub.co m from the ADA website to help [...] normalLFT normalCr normal Rosa Meeks MD [address], [facility] [address], [place], [address], [employer] 01/24/2023 10:04:49 05/09/2023 text/html ROS as noted in the HPI 72 yo male comes in for follow [...] of 2.060 uIU/mlCCP negativeRF negANA negLFT normalCr .4/43 Rosa Meeks MD [address], [address], [place], [address], [employer] 05/09/2023 14:39:19
--- OUTSIDE RECORDS SUMMARY | 2025-05-10 20:23 | XMS_ITS | Clinical Summary ---
Author Organization [facility] Address [address] [place] [address] Care Team Providers Care Project Hire Name Role Phone Unavailable Primary Care Provider [...] COVID-19 Vaccine ( - 2023-2 5 season) 2025 Meningococcal B Vaccine Aged Out No l onger eligible based on patient's age to complete this topic Meningococcal Vaccine Aged Out No adalid guzman eligible based on patient's age to complete this topic RSV Immunizations Under 20 Months Aged Out No longer eligible based on patient's age to complete this topic
[2025-05-10 20:30] VITALS: BP 127/67; PULSE 76; RESP 14; O2SAT 99
--- NOTE | 2025-05-10 20:34 | ED_ITS ---
HPI - Fall General Chief Complaint: Fall Stated Complaint: FALL, SIDE PAIN Time Seen by Provider: 05/10/25 19:55 Source: patient Mode of arrival: EMS Limitations: no limitations History of Present Illness HPI Narrative: Patient is a 74-year-old male, with PMH of CAD s/p CABG, who presents the ED via EMS with report of right-sided flank/rib pain. Patient reports he was attempting to hang a curtain alex tonight when he fell backwards and hit against the arm of his couch on his right mid back. Denied any head injury or LOC. Denies dizziness or lightheadedness. Complains of pain to his right flank/right posterior ribs. Worse with movement, deep breathing. Denies feeling short of breath. Denies significant abdominal pain. Denies any lower back pain. Patient is on Xarelto. Related Data Home Medications ?Medication ?Instructions ?Recorded ?Confirmed ?Last Taken ?Type aspirin 81 mg tablet,delayed 81 mg PO DAILY 09/11/19 0 03/20/25 Unknown History release (Adult Low Dose Aspirin) rosuvastatin 40 mg tablet 40 mg PO HS 09/17/20 5 Unknown History Allergies Allergy/AdvReac Type Severity Reaction Status Date / Time Penicillins Allergy Severe Anaphylaxis Verified 03/20/25 14:32 hydrocodone Allergy Intermediate Itching Verified 03/20/25 14:32 amoxicillin Allergy Unknown Unknown Verified 03/20/25 14:32 cefaclor Allergy Unknown Unknown Verified 03/20/25 14:32 Cephalosporins Allergy Unknown unknown Verified 03/20/25 14:32 erythromycin base Allergy Unknown unknown Verified 03/20/25 14:32 Review of Systems 2 Review of Systems: All systems reviewed & are unremarkable except as noted in HPI. All systems reviewed & are unremarkable except as noted in HPI and below PMFSH Past Medical History Medical History Positive colorectal cancer screening using Cologuard test Diabetes type 2, controlled Impingement syndrome of both shoulders Bleeds easily Hypertension History of COVID-25 Sep 2022 Gastroesophageal reflux Bronchitis Anxiety Hyperlipidemia associated with type 2 diabetes mellitus CAD (coronary artery disease) Colon cancer screening (~07/2019) Cologuard negative Surgical History Surgical History History of coronary artery stent placement H/O carpal tunnel repair (~07/2021) S/P lateral meniscectomy of left knee (~2021) S/P medial meniscectomy of right knee (~2021) Hx of CABG x3, 2010 Family History Family History Father CVD (cardiovascular disease) Cerebrovascular accident Coronary artery disease Stomach cancer Mother Coronary artery disease Father Cerebrovascular accident, Onset Age: 74 Family history of coronary artery disease, Onset Age: 74 Patient's father is , Onset Age: 74 Mother Family history of coronary artery disease, Onset Age: 68 Patient's mother is , Onset Age: 68 Social History Social History Smoking packs per day: 1 Smoking cigarettes per day: 20.0 Years smoked: 47 Smoking pack-years: 47.00 Smoking status: Former smoker Tobacco type: cigarettes and cigars Second hand tobacco smoke exposure: Yes Smoking end date: 08/07/10 Alcohol intake: current Alcohol use details: RARE Substance use: never Substance use type: does not use Lack of Transportation: No Lack of Food: Never True Current Housing: I Have Housing Concerned About Future Housing: No Difficulty Paying Gas/Electric Bills: No Difficulty Paying for Meds: No Currently Unemployed: No Education: Trade/Vocational Certificate Difficulty w/ Childcare or Family Care: No Living arrangements: with family Occupation/Education: retired Gender identity (if verbalized by the patient): Male Spiritual care concerns: No Agree to blood products: Yes Exam 2 Narrative: GENERAL: Uncomfortable appearing, well-nourished, non-toxic, in no acute distress. HEAD: Normocephalic, atraumatic. RESPIRATORY: Airway patent, respirations nonlabored. Clear to auscultation bilaterally, no rales, rhonchi, wheezing. Lung sounds are equal wolfgang CARDIOVASCULAR: Regular rate and rhythm without murmurs, rubs, or gallops. ABDOMINAL: Soft, no significant focal tenderness throughout right-sided abdomen. Nondistended. Normoactive BS. MUSCULOSKELETAL: Moves all extremities. No gross deformities. Moderate TTP to R posterior lateral rib cage, reproduced with any movement or palpation. No tenderness over anterior chest wall. SKIN: Warm, dry, normal color. NEURO: A&O X3. Speech clear. Cranial nerves II-XII grossly intact. No ataxic movements. PSYCHIATRIC: Appropriate mood and affect. Normal interaction. Course Vital Signs Vital signs: Vital Signs Temperature 97.7 F 05/10/25 19:51 Pulse Rate 74 05/10/25 19:51 Respiratory Rate 15 05/10/25 19:51 Blood Pressure 161/72 H 05/10/25 19:51 Pulse Oximetry 99 05/10/25 19:51 Oxygen Delivery Room Air 05/10/25 19:51 Temperature 97.7 F 05/10/25 19:51 Pulse Rate 78 05/10/25 23:13 Respiratory Rate 16 05/10/25 23:13 Blood Pressure 158/76 H 05/10/25 23:13 Pulse Oximetry 97 05/10/25 23:13 Oxygen Delivery Room Air 05/10/25 19:51 MDM - Fall MDM Narrative Medical decision making narrative: Patient presented to ED status post ground level mechanical fall, pain to right posterior ribs/flank. Vital signs are stable upon arrival. Oxygen stable on room air, 97% and above. Patient is uncomfortable appearing, pain with any movement. Laboratory studies without leukocytosis. Very mild anemia noted at 13.0. No recent records to. Stable platelets. CMP with slight MERRICK. Creatinine 1.59. Baseline appears more around 1. Fluids initiated. Troponin undetectable. CT of chest/abdomen/pelvis obtained and showing fx's of R 8-9-10 posterior ribs. No PTX. No other intra-abdominal findings. No other fractures. Patient was updated on lab and imaging results. He is feeling improved with supportive therapy/pain control in the ED. He states he is ready to go home at this time. Feel this is safe as patient's pain is controlled at this time, he continues to maintain oxygen saturations greater than 97% on room air. He is not in any respiratory distress and there is no sign of airway compromise. Will discharge with pain control, lidocaine patches, muscle relaxers. Patient reports temporary itching with hydrocodone. He is unsure if he has ever had oxycodone. He has tolerated tramadol in the past. Will prescribe this. Educated on incentive spirometry use and encouraged use of this. Discussed close follow-up with PCP for repeat chest imaging. Discussed very strict return precautions. Patient in agreement with plan, feels comfortable going home. Family in agreement. Discharged in stable condition. Medical Records Attestation: I reviewed the patient's medical records. Lab Data Attestation: I reviewed the patient's lab results. 05/10/25 20:34 05/10/25 20:34 Labs: Lab Results 05/10/25 Range/Units 20:34 WBC 9.3 (4.5-10.0) K/mm3 RBC 4.23 L (4.6-6.20) M/mm3 Hgb 13.0 L (14.0-18.0) g/dL Hct 39.5 L (42.0-52.0) % MCV 93.4 (80-100) fl MCH 30.7 (26-34) pg MCHC 32.9 (32-36) g/dl RDW 13.6 (11.5-14.5) % Plt Count 209 (150-375) k/mm3 MPV 10.0 (7.4-10.4) fl Immature Gran % (Auto) 0.3 (0-0.5) % Neut % (Auto) 59.4 (45.5-73.1) % Lymph % (Auto) 30.4 (18.3-44.2) % [place] % (Auto) 7.0 (2.6-8.5) % Eos % (Auto) 2.4 (0-4.4) % Baso % (Auto) 0.5 (0.2-1.2) % Lymph # (Auto) 2.84 (0.9-3.2) K/mm3 [place] # (Auto) 0.7 H (0.1-0.6) K/mm3 Eos # (Auto) 0.2 (0-0.3) K/mm3 Baso # (Auto) 0.1 (0.0-0.1) K/mm3 Abs Immat Gran (auto) 0.03 (0.00-0.031) K/mm3 Absolute Neuts (auto) 5.6 (1.3-6.7) K/mm3 Absolute Nucleated RBC 0.000 (0.0-0.012) K/mm3 Nucleated RBC % 0.0 (0.0-0.2) % PT 15.6 H (11.1-14.7) Seconds INR 1.3 APTT 28.3 (22.3-36.8) Seconds Sodium 141 (137-145) mmol/L Potassium 4.8 (3.4-5.0) mmol/L Chloride 108 H (98-107) mmol/L Carbon Dioxide 22 (22-30) mmol/L Anion Gap 11 (4-12) mmol/L BUN 33 H (9-20) mg/dL Creatinine 1.59 H (0.7-1.3) mg/dL Estim Creat Clear Calc 37 ml/min Estimated GFR 43 L (59 - ) Glucose 146 H (65-110) mg/dL Calcium 10.0 (8.4-10.2) mg/dL Total Bilirubin 0.4 (0.2-1.3) mg/dL AST 33 (17-59) U/L ALT 28 (6-50) U/L Alkaline Phosphatase 77 (38-126) U/L Troponin I < 0.012 (0.000-0.034) ng/mL Total Protein 8.2 (6.3-8.2) g/dL Albumin 4.8 (3.5-5.1) g/dL Imaging Data Attestation: I personally reviewed and interpreted this imaging study as follows: Radiologist's impression: STAT RAD CT chest: Impression: Fractures of the right 8th, 9th, and 10th posterior ribs. No pneumothorax or large pleural effusion. CT abd/pelvis: Impression: No acute intra-abdominal abnormality or solid organ injury. No free air or ascites. No acute osseous abnormality. Urinary bladder wall thickening, nonspecific. Correlate with urinalysis. Hepatic steatosis and hepatomegaly. Discharge Plan Discharge Clinical Impression: Fall from ground level Multiple fractures of ribs of right side Qualifiers: Encounter type: initial encounter Fracture type: closed Qualified Code(s): S 22.41XA - Multiple fractures of ribs, right side, initial encounter for closed fracture Patient Disposition: Home Condition: Stable Instructions: Antibiotic Form, Rib Fracture (ED), Rib Contusion (ED) Additional Instructions: Follow-up closely with your primary care doctor for further evaluation repeat chest imaging. Stay well hydrated at home. Recommend frequent icing to back/ribs. Lidocaine patches to area of pain. Continue Tylenol 1000 mg every 6 hours. Tramadol as needed for more severe pain. Take muscle relaxers as needed and prescribed. Recommend taking these at night as they may cause sedation. Do not drive, operate heavy machinery, drink alcohol while on muscle relaxers as this may cause further sedation. Return to the ED if you experience worsening or severe pain, recurrent injury, difficulty breathing, feeling short of breath, chest pain, unable to keep down food or drink, or any other symptoms of concern. Patient Language: Czech Prescriptions: New lidocaine 5 % adhesive patch,medicated 1 patch topical DAILY Qty: 15 0RF Rx Instructions: leave on most painful area for up to 12 hrs tramadol 50 mg tablet 50 mg PO Q6H PRN (Reason: pain) Qty: 20 0RF methocarbamol 750 mg tablet 1,500 mg PO TID PRN (Reason: muscle spasm) Qty: 15 0RF tramadol 50 mg tablet 50 mg PO Q6H PRN (Reason: pain) Qty: 20 0RF No Action aspirin [Adult Low Dose Aspirin] 81 mg tablet,delayed release (DR/EC) 81 mg PO DAILY esomeprazole magnesium 20 mg capsule,delayed release(DR/EC) 20 mg PO DAILY Qty: 90 3RF dulaglutide 4.5 mg/0.5 mL pen injector 4.5 mg subcut WEEKLY 90 Days Qty: 6.5 3RF metformin 500 mg tablet 1,000 mg PO BIDWMEAL 90 Days Qty: 360 3RF (DME) pen needle, diabetic 31 gauge x 5/16 needle See Rx Instructions .Route Qty: 100 3RF Rx Instructions: use once daily rosuvastatin 40 mg tablet 40 mg PO HS Brilinta 60 mg tablet 60 mg PO Q12H Qty: 60 0RF (DME) FreeStyle [place] 3 Sensor Device See Rx Instructions .ROUTE .MEDSUPPLY Qty: 6 3RF Rx Instructions: As directed (DME) FreeStyle [place] 3 [place] Misc See Rx Instructions .Route Qty: 1 0RF Rx Instructions: As directed albuterol sulfate [Ventolin HFA] 90 mcg/actuation HFA aerosol inhaler 1 puff INHALATION Q4H PRN (Reason: shortness of breath or wheezing) Qty: 1 3RF venlafaxine 75 mg capsule,extended release 24hr 75 mg PO DAILY Qty: 180 1RF lisinopril 40 mg tablet See Rx Instructions .ROUTE .COMPLEX Qty: 90 1RF Dose Instruction: Take 1 tablet by mouth once daily Rx Instructions: Take 1 tablet by mouth once daily (DME) blood-glucose meter [Contour Plus Blue Meter] Misc See Rx Instructions .Route Qty: 1 0RF Rx Instructions: Use to check BS (DME) Contour Plus Test Strip Strip See Rx Instructions .Route Qty: 200 0RF Rx Instructions: Check BS twice daily Tresiba FlexTouch U-200 200 unit/mL (3 mL) insulin pen 35 unit subcut HS 90 Days Qty: 18 3RF metoprolol tartrate 25 mg tablet 25 mg PO BID Qty: 180 1RF Rx Instructions: TAKE 1 TABLET BY MOUTH TWICE A DAY Follow-up/Referrals: Kandy Carrillo MD [Primary Care Provider, Family Practice] Time of Disposition: 23:02
[2025-05-10] MEDS: HYDROmorphone HCL INJ (*CRX) 1 MG/ML SYR 0.5 MG IV PUSH (20:39)
[2025-05-10 20:40] LABS: Hematocrit 39.5 % (42.0-52.0); Hemoglobin 13.0 g/dL (14.0-18.0); Immature Granulocyte Percent A 0.3 % (0-0.5); Lymphocytes Absolute Auto 2.84 K/mm3 (0.9-3.2); Mean Corpuscular HGB Conc 32.9 g/dl (32-36); Mean Corpuscular Hemoglobin 30.7 pg (26-34); Mean Corpuscular Volume 93.4 fl (80-100); Nucleated Red Blood Cells Absolute Auto 0.000 K/mm3 (0.0-0.012); Nucleated Red Blood Cells Perc 0.0 % (0.0-0.2); Platelet Count Result 209 k/mm3 (150-375); Red Blood Count 4.23 M/mm3 (4.6-6.20); White Blood Count 9.3 K/mm3 (4.5-10.0)
[2025-05-10] MEDS: LIDOCAINE 5% PATCH 1 PATCH TRANSDERM (20:40)
[2025-05-10 20:51] LABS: INR 1.3; Prothrombin Time 15.6 Seconds (11.1-14.7)
[2025-05-10 20:52] LABS: Partial Thromboplastin Time 28.3 Seconds (22.3-36.8)
[2025-05-10 20:57] LABS: Alanine Aminotransferase 28 U/L (6-50); Albumin Level 4.8 g/dL (3.5-5.1); Alkaline Phosphatase 77 U/L (38-126); Anion Gap 11 mmol/L (4-12); Aspartate Amino Transferase 33 U/L (17-59); Bilirubin,Total 0.4 mg/dL (0.2-1.3); Blood Urea Nitrogen 33 mg/dL (9-20); Calcium 10.0 mg/dL (8.4-10.2); Carbon Dioxide 22 mmol/L (22-30); Chloride 108 mmol/L (98-107); Estimated CRCL calculation 37 ml/min; Estimated Glomerular Filt Rate 43; Glucose 146 mg/dL (65-110); Potassium 4.8 mmol/L (3.4-5.0); Sodium 141 mmol/L (137-145); Total Protein 8.2 g/dL (6.3-8.2)
[2025-05-10 21:00] VITALS: BP 130/61; PULSE 76; RESP 14; O2SAT 93
[2025-05-10 21:07] LABS: Troponin I < 0.012 ng/mL (0.000-0.034)
[2025-05-10] MEDS: SODIUM CHLORIDE 0.9% IV 1,000 ML 999 ML IV CONT (21:07)
[2025-05-10 22:00] VITALS: BP 153/65; PULSE 78; RESP 14; O2SAT 99
[2025-05-10 22:30] VITALS: BP 144/67; PULSE 79; RESP 12; O2SAT 100
[2025-05-10] MEDS: ACETAMINOPHEN 500 MG TABLET 1000 MG PO (23:10)
[2025-05-10] MEDS: traMADol HCL (*CRX) 50 MG TABLET PO (23:11)
[2025-05-10 23:13] VITALS: BP 158/76; PULSE 78; RESP 16; O2SAT 97
--- NOTE | 2025-05-10 23:21 | PC.NURSE ---
Respiratory at bedside for inspirometer training
== END 2025-05-10 23:35 | disposition home or self-care (01) ==
PROVIDERS: Emergency Provider Physician Assistant; PCP Family Medicine
DX: S22.41XA Multiple fractures of ribs, right side, initial encounter for closed fracture (principal); W01.190A Fall on same level from slipping, tripping and stumbling with subsequent striking against furniture, initial encounter; I25.10 Atherosclerotic heart disease of native coronary artery without angina pectoris; Z95.1 Presence of aortocoronary bypass graft; Z87.891 Personal history of nicotine dependence
CPT/HCPCS: 36415; 71260; 74177; 80053; 84484; 85025; 85610; 85730; 96361; 96374; 99284; A9270; J1171; J7030; Q9967

== ENCOUNTER 2025-05-13 10:19 | Outpatient (CLI) | payer MEDICARE, SELFPAY ==
--- NOTE | ~2025-05-13 | XR_ITS ---
EXAMINATION: XR ribs RT 2V, 05/13/2025 10:30 CDT HISTORY: S22.39XA - Fracture of one rib, unspecified side, initial... COMPARISON: No comparisons available. Findings: No acute fracture or malalignment. No significant degenerative changes. Soft tissues unremarkable. Impression: No acute fracture or malalignment. Reviewed, dictated and finalized at location P. Impression: No acute fracture or malalignment.
--- OUTSIDE RECORDS SUMMARY | 2025-05-13 11:16 | XMS_ITS | Clinical Summary ---
Author Organization [facility] Address [address] [place] [id number] Care Team Providers Care Technology Training Associate Name Role Phone Unavailable Primary Care Provider [...]
--- OUTSIDE RECORDS SUMMARY | 2025-05-13 11:16 | XMS_ITS | Clinical Summary ---
Author Organization [facility] Address [address] [place] [id number] Care Team Providers Care Java Web Services Developer Name Role Phone Kandy Carrillo MD Primary Care Provider [phone] Allergies Active Allergy Reactions Criticality Noted Date [...] 4 (four) hours as needed 4 Active Trulicity 1.5 mg/0.5 mL pen injector 5 Active rosuvastatin (CRESTOR) 40 mg tablet Take 1 tablet by mouth nightly 90 tablet 5 Active Xarelto 2.5 mg tablet Take 1 tablet by mouth twice daily 180 tablet 5 Active Active Problems Problem Noted Date [...] (09/17/2020): Added automatically from request for surgery [id number] Atypical chest pain 08/06/2020 Gastroesophageal reflux disease 08/06/2020 Former smoker 08/06/2020 Hypertension associated with diabetes 08/06/2020 Hyperlipidemia associated with type 2 diabetes m ellitus 08/06/2020 Type 2 diabetes mellitus 10/18/2019 Coronary artery disease of n ative artery of [place] heart with stable angina pectoris 09/21/2010 Surgical History Surgery Date Site/Laterality Comments CARDIAC SURGERY 08/07/2010 - 08/06/2011 bypass CORONARY ARTERY BYPASS GRAFT KNEE ARTHROSCOPY Left TRIGGER FINGER RELEASE Medical History Medical History Date Comments Asthma Hypertension Hyperlipidemia DM (diabetes mellitus) Type 2 diabetes mellitus Chest pain GERD (gastroesophageal reflux disease) Anxiety [...] file 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 Gender Identity Not on file Sexual Orientation Not on file Obstetrics History Last Filed Vital Signs Vital Sign Reading Time Taken Comments Blood Pressure 136/78 11/25/2024 9:08 AM CDT Pulse 82 11/25/2024 9:08 AM CDT Temperature 36.7 C (98.1 F) 10/09/2020 7:00 AM NETWORK CONTROLLER Respiratory Rate 18 10/09/2020 7:00 AM NETWORK CONTROLLER Oxygen Saturation 98% 11/25/2024 9:08 AM CDT [...] Additional history exists Lipid Panel 11/25/2025 11/25/2024, 02/02/2024, 09/01/2022, Additional history exists Medical Devices Implanted Type Area Radiology Nurse Device Identifier Shelf Expiration Date Model / Serial / Lot [employer] X [id number] Resolute [place] 3mm 2.1-2.7fr 34mm 140cm Rapid Exchange Radiopaque - [id number] Implanted:Qty: 1 on 10/08/2020 by Riley Walden MD at [facility] [employer] [id number] / / Procedures Procedure Name Priority Date/Time Associated Diagnosis Comments POCT LIPID PANEL Routine 11/25/2024 9:10 AM CDT Coronary artery disease of [place] artery of [place] heart with stable angina pectoris Hyperlipidemia associated [...] to Health Maintenance Insurance [facility]HC MEDICARE ADVANTAGE [facility] Address: [place] [id number] [employer]HC MEDICARE ADVANTAGE [facility] Address: [address] [place], [place] [address] [employer]HC MEDICARE ADVANTAGE [facility] Address: [address] [address] [place] [address] [place] [address] [facility] MEDICARE ADVANTAGE [facility] Address: [address] [address] [place] [address] Care Teams Java Web Services Developer Relationship Specialty Start Date End Date Kandy Carrillo MD PCP - General 10/10/16
== END 2025-05-13 10:20 | disposition home or self-care (01) ==
PROVIDERS: PCP Student in an Organized Health Care Education/Training Program; Visit Provider Student in an Organized Health Care Education/Training Program
DX: S22.39XA Fracture of one rib, unspecified side, initial encounter for closed fracture (principal); X58.XXXA Exposure to other specified factors, initial encounter
CPT/HCPCS: 71100

== ENCOUNTER 2025-05-23 13:35 | Outpatient (CLI) | payer MEDICARE, SELFPAY ==
--- NOTE | ~2025-05-23 | XR_ITS ---
XR thoracic spine 2V Indication: M54.6 - Pain in thoracic spine Comparison: None Findings: Moderate osteopenia. Moderate loss of vertebral height throughout. No acute fracture or subluxation. Moderate loss of disc height throughout. Soft tissues unremarkable Impression: No acute abnormality. Reviewed, dictated and finalized at location P. Impression: No acute abnormality.
--- NOTE | ~2025-05-23 | XR_ITS ---
CORRECTED REPORT moved images/report to [id number] [facility] 05/26/25 This report was recreated on 05/26/25. Original report was EXAMINATION: XR ribs RT 2V, 05/23/2025 14:20 CDT HISTORY: RECHECK ON RT RIB FX'S FROM 05/10/25 INJURYS COMPARISON: No comparisons available. Findings: Rib fractures noted previously is not well redemonstrated. No acute fracture is identified No significant degenerative changes. Soft tissues unremarkable. Impression: No acute fracture or malalignment. Reviewed, dictated and finalized at location P. Impression: No acute fracture or malalignment.
--- OUTSIDE RECORDS SUMMARY | 2025-05-23 13:41 | XMS_ITS | Clinical Summary ---
Author Organization [facility] Address [address] [place] [id number] Care Team Providers Care Long Filler Cigar Roller Machine Name Role Phone Kandy Carrillo MD Primary Care Provider [phone] Allergies Active Allergy Reactions Criticality Noted Date [...] (09/17/2020): Added automatically from request for surgery [id number] Atypical chest pain 08/06/2020 Gastroesophageal reflux disease 08/06/2020 Former smoker 08/06/2020 Hypertension associated with diabetes 08/06/2020 Hyperlipidemia associated with type 2 diabetes m ellitus 08/06/2020 Type 2 diabetes mellitus 10/18/2019 Coronary artery disease of n ative artery of [place] heart with stable angina pectoris 09/21/2010 Surgical [...] on file 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 Gender Identity Not on file Sexual Orientation Not on file Obstetrics History Last Filed Vital Signs Vital Sign Reading Time Taken Comments Blood Pressure 136/78 11/25/2024 9:08 AM CDT Pulse 82 11/25/2024 9:08 AM CDT Temperature 36.7 C (98.1 F) 10/09/2020 7: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 [employer] [id number] / / Procedures Procedure Name Priority Date/Time Associated Diagnosis Comments POCT LIPID PANEL Routine 11/25/2024 9:10 AM CDT Coronary artery disease of [place] artery of [place] heart with stable angina pectoris Hyperlipidemia associated [...] Health Maintenance Insurance UHC MEDICARE AD[facility] Address: [place] [id number] [facility]HC MEDICARE [facility] Address: [address] [place], [place] [address] [employer]HC MEDICARE [facility] Address: [address] [address] [place] [address] [place] [address] [facility] MEDICARE AD[facility]ANTAGE [facility] Address: [address] [address] [place] [address] Care Teams Long Filler Cigar Roller Machine Relationship Specialty Start Date End Date Kandy Carrillo MD PCP - General 10/10/16
--- OUTSIDE RECORDS SUMMARY | 2025-05-23 13:41 | XMS_ITS | Data Portability ---
Author Organization [place] - [facility] [employer], Main Office Address [address] [place] [address] Care Team Providers Care Re Examiner Name Role Phone IDALIA MONROE Primary Care Provider IDALIA MONROE Referring Provider [phone] Assessment No assessment recorded. Plan of Treatment Reminders Order Date Submit Date Provider Last Modified By Organization Details Last Modified Time Details Appointments None recorded. Lab rf (rheumatoid factor), serum [address] [place] [address] (Lab), [address] [place] [address], [phone], 3 09:57:45 ccp (cyclic citrullinat ed peptide) iga+igg, serum [address] [place] [address] (Lab), [address] [place] [address], [phone], 3 09:57:45 ESR (erythrocyt e sedimentati on rate), blood [address] [place] [address] (Lab), [address] [place] [address], [address], 3 09:57:46 C reactive protein, QN, serum or plasma [address] [place] [address] (Lab), [address] [place] [address], [phone], 3 09:57:46 MASON (antinuclea r antibodies) screen, serum [address] (Lab), [address] [place] [address], [address], 3 09:57:46 lipid panel, serum [address] (Lab), [address] [place] [address], [address], 3 09:57:46 TSH + free T4, serum [address] (Lab), [address] [place] [address], [address], 3 09:57:46 CMP, serum or plasma 2022 023 [facility] (Lab), [address] [place] [address], [address], 3 16:32:09 HbA1c (hemoglobin A1c), blood [address] (Lab), [address] [place] [address], [address], 3 09:57:46 microalbumi n/creatinin e, mass ratio, urine [address] (Lab), [address] [place] [address], [address], 3 09:57:45 Referral endocrinolo gy referral 2022 023 [email or web address] Heide Villa MD, [address],, [facility], [place], [address], 3 14:42:07 Procedures None recorded. Surgeries None recorded. Imaging None recorded. Medication Orders Tresiba FlexTouch U-200 insulin 200 unit/mL (3 mL) subcutaneou s pen 2022 023 [facility] [place], [address], 3 14:32:02 glipizide 5 mg tablet 2022 023 [facility] [place], [address], 3 14:33:13 glipizide 5 mg tablet 2022 023 [facility] [address] [place], [address], 3 09:53:56 Patient TargetsNo targets recorded. Patient InstructionsNo instructions recorded. Reason for Referral Endocrinology Referral for W ell controlled type 2 diabetes mellitus Referring Physician: Rosa Meeks, Endocrinology, Encounter Date: 05/09/2023 Results Created Date Observation Date Name Description Value Unit Range Abnormal Flag Note LastModifiedBy Organization Detail LastModifiedTime 07/20/20 22 07/20/2022 elect umair thomas am No observ ation record ed. [id number] [facility] (Resp Services) [address] [place] [address] [address] [facility], [place], [address], 10/05/2022 05:06:44 Result Notes None recorded. Problems Name Problem SNOMED Code Status Onset Date Resolution Date Notes Provider Name and Address Organization Details Recorded Time Acquired trigger finger 4189607 Active Not Available [facility] 3 04:50:15 Radiothera py follow-up 758682504 Active Not Available [facility] 3 04:50:15 Current tear of medial cartilage AND/OR meniscus of knee Active Not Available [facility] 3 04:50:16 Knee pain Active Not Available [facility] 3 04:50:16 Sprain of metacarpop halangeal joint 69339079 Active Not Available [facility] 3 04:50:16 Arthropath y of joint of hand 804725503 Active Not Available [facility] 3 04:50:16 Disorder of bursa of shoulder region 68429536 Active Not Available [facility] 3 04:50:17 Sprain of wrist 57161590 Active Not Available [facility] 3 04:50:17 Type 2 diabetes mellitus 30905045 Active 2019 Not Available [facility] 3 04:50:17 Hyperlipid emia 27708802 Active 2019 Not Available [facility] 3 04:50:17 Osteoarthr itis of right knee joint 0750326908405 00 Active 2021 Not Available [facility] 3 04:50:16 Pain of right hand 1345277918966 09 Active 2021 Not Available [facility] 3 04:50:16 Derangemen t of right knee 6174468631163 9109 Active 2021 Not Available [facility] 3 04:50:15 Osteoarthr itis of knee 829503848 Active 2021 Not Available [facility] 3 04:50:15 Tear of medial meniscus of knee 932686722 Active 2021 Not Available [facility] 3 04:50:15 Acquired trigger finger of right index finger 4807909605133 Active 2021 Not Available [facility] 3 04:50:16 Pain of right knee joint 5434269520345 00 Active 2021 Not Available [facility] 3 04:50:17 Carpal tunnel syndrome of left wrist 5402561521005 02 Active 2022 Not Available [facility] 3 04:50:15 Acquired trigger finger of left ring finger 0236462793117 09 Active 2022 Not Available [facility] 3 04:50:16 Uncontroll ed type 2 diabetes mellitus 628071036 Active 2022 KAYKAY Gottlieb null, [place] - [facility] 3 13:42:09 Dyslipidem ia 198340361 Active 2022 Rosa Meeks MD [address] [place] [address], [address] [place], [address] , [employer] 3 21:53:24 Osteoarthr itis 173105013 Active 2022 Rosa Meeks MD [address], [place], [address] , [email or web address] [facility] 3 09:56:19 Well controlled type 2 diabetes mellitus 569095151 Active 2022 Roas Meeks MD [address], [place], [address] , [employer] 3 14:31:36 Problem Notes None recorded. Procedures Surgical History Date Name Laterality Status Provider Name and Address Organization Details Recorded Time 2 Knee Surgery completed Not Available [facility] 023 04:41:40 coronary artery bypass grafts x 3 completed Not Available [facility] 10/05/2022 04:41:40 Knee Surgery completed Not Available [facility] 10/05/2022 04:41:40 Imaging Results None recorded. Procedure Notes None recorded. Medical Equipment None Reported. Allergies Allergen ID Allergen Name Allergen Category Reaction Reaction Severity Criticality Documentation Date Start Date Code Code System Note Provider Name and Address Organization Details Recorded Time 8679 Product containin g penicilli n (product) medicatio n Not available Not available Not available 10/05/2022 67317 8001 SNOMED Not Available [facility] 3 05:06:05 8681 hydrocodo ne Not available rash Not available Not available 10/05/2022 5489 RxNorm Not Available [facility] 3 05:06:05 8682 erythromy sultana medicatio n Not available Not available Not available 10/05/2022 4053 RxNorm Not Available [facility] 3 05:06:05 Medications Name Sig Start [...] administ ered by the provider 09/07 completed [facility]: 0409-427 01-21 Not Available Not Available Not [...] mg by injectio n route. 01/24 completed [facility] 25238-77 11-05 Not Available Not Available Not Available [...] Available Not Available Not Available Fluzone High-Dose 6146-9542 (PF) 180 mcg/0.5 mL intramusc ular syringe [...] Updated DateTime 09/05/2022 26.4 kg/m2 177.8 cm 96158 g Not Available [facility] 10/05/2022 04:43:38 Date Recorded Body mass index (BMI) Body height Body weight Provider Name and Address Organization Details Last Updated DateTime 10/03/2022 25.7 kg/m2 177.8 cm 20468.03 g Not Available [facility] 10/05/2022 04:43:38 Date Recorded Body height Body mass index (BMI) Body weight Body temperature Heart rate Systolic And Diastolic Provider Name and Address Organization Details Last Updated DateTime 3 177.8 cm 26.1 kg/m2 21045.8 1 g 97.2 [degF] 109 /min 159/92 mm[Hg] KAYKAY Alonso [facility] [employer] [facility] 3 09:30:05 Date Recorded Body height Body mass index (BMI) Body weight Respiratory rate Body temperature Heart rate Systolic And Diastolic Provider Name and Address Organization Details Last Updated DateTime 3 177.8 cm 26.7 kg/m2 15107.6 2 g 14 /min 97.7 [degF] 68 /min 129/79 mm[Hg] Sharon Vaughn RN [facility] [employer] [facility] [employer] 3 14:19:37 Social History Question Answer Notes LastModified by [employer] Details LastModified Time Tobacco Smoking Status Former Smoker Not Available [facility] 10/05/2022 04:12:02 What Is Your Level Of Caffeine Consumption? Moderate [id number] Information not available 10/05/2022 When Did You Quit Smoking? 6-10yearssinc elastcigarett e [id number] Information not available 10/05/2022 What Was The Date Of Your Most Recent Tobacco Screening? 06/28/2021 [id number] Information not available 10/05/2022 What Is Your Relationship Status? [id number] Information not available 10/05/2022 Sex: Male Functional Status Question Answer Note LastModified by [employer] Details LastModified Time Do you use any illicit or recreational drugs? No [id number] Information not available 10/05/2022 Do you or have you ever used any other forms of tobacco or nicotine? No [id number] 026 Information not available 10/05/2022 What is your level of alcohol consumption? Occasional [id number] Information not available 10/05/2022 Mental Status None recorded. Family History Relationship Description Onset Age of this Age Resolved Age Notes LastModified by Organization Details LastModified Time Mother Heart disease [id number] Not available 10/05/2022 04:41:45 Mother Myocardial infarction [id number] Not available 10/05/2022 04:41:45 Brother Heart disease 3 brothe r [id number].421 [id number] Not available 10/05/2022 04:41:45 Brother Myocardial infarction [id number].010 [id number] Not available 10/05/2022 04:41:45 Brother Disease of liver [id number] Not available 10/05/2022 04:41:45 Medical History Condition Response DIABETES, TYPE Y HYPERTENSION Y HIGH CHOLESTEROL / HYPERLIPIDEMIA Y Past Encounters Encounter ID Performer Location Encounter Start Date Encounter Closed Date Diagnosis/Indication Diagnosis SNOMED-CT Code Diagnosis ICD10 Code Diagnosis IMO Codes Diagnosis Note [id number] Rosa Meeks MD [facility] [address] [place] [address] 03/05/2021 00:00:00 03/05/2021 12:56:44 [id number] Bahman Hays MD [facility] [address] [place] [address] 06/28/2021 00:00:00 06/28/2021 11:08:28 [id number] Bahman Hays MD [facility] [address] [place] [address] 07/15/2021 00:00:00 07/15/2021 09:55:52 [id number] Bahman Hays MD [facility] [address] [place] [address] 09/07/2021 00:00:00 09/07/2021 14:07:52 [id number] Bahman Hays MD [facility] [address] [place] [address] 10/28/2021 00:00:00 10/28/2021 11:22:16 [id number] Rosa Meeks MD [facility] [address] [place] [address] 11/26/2021 00:00:00 11/26/2021 11:34:49 [id number] Bahman Hays MD [facility] [address] [place] [address] 05/19/2022 00:00:00 05/19/2022 11:34:22 [id number] Bahman Hays MD [facility] [address] [place] [address] 06/16/2022 00:00:00 06/16/2022 11:51:18 [id number] Rosa Meeks MD [facility] [place] [address] [place] [address] 07/22/2022 00:00:00 07/22/2022 13:41:57 [id number] Bahman Hays MD [facility] [address] [place] [address] 08/09/2022 00:00:00 08/09/2022 14:50:42 [id number] Bahman Hays MD [facility] [place] [address] [place] [address] 09/05/2022 00:00:00 09/05/2022 10:30:04 [id number] Bahman Hays MD [facility] [place] [address] [place] [address] 10/03/2022 00:00:00 10/03/2022 11:34:15 [id number] Rosa Meeks MD [facility] [place] [address] [place] [address] 01/24/2023 09:21:57 01/24/2023 10:09:05 Uncontrolled type 2 diabetes mellitus 765687010 E11.65 Dyslipidemia 534976683 E 78.5 Osteoarthritis 996860807 M19.90 [id number] Rosa Meeks MD [facility] [place] [address] [place] [address] 05/09/2023 13:53:45 05/09/2023 14:42:07 Well controlled type 2 diabetes mellitus 688693391 E11.9 A1C of 7.3% stable- patient advised [...] to endocrinol ogy per patient request. Dyslipidemia 904840830 E 78.5 LDL in range- continue statin [...] [employer]iente Member ID Guarantor Name 05/07/2023 1 [facility] (MEDICARE REPLACEMENT/A DVANTAGE - PPO) [id number] Yrn Mata [id number] Yrn Mata Notes Date Note Type Note [...] normal Rosa Meeks MD [address], [facility] [address], [place], [address], [employer] 01/24/2023 10:04:49 05/09/2023 text/html ROS as noted [...] of 2.060 uIU/mlCCP negativeRF negANA negLFT normalCr [id number]/43 Rosa Meeks MD [address], [address], [place], [address], [employer] 05/09/2023 14:39:19
== END 2025-05-23 13:36 | disposition home or self-care (01) ==
PROVIDERS: PCP Student in an Organized Health Care Education/Training Program; Visit Provider Student in an Organized Health Care Education/Training Program
DX: M85.80 Other specified disorders of bone density and structure, unspecified site (principal); R29.890 Loss of height; M54.6 Pain in thoracic spine; S22.31XA Fracture of one rib, right side, initial encounter for closed fracture; X58.XXXA Exposure to other specified factors, initial encounter
CPT/HCPCS: 71100; 72070

== ENCOUNTER 2025-07-28 12:42 | Outpatient (CLI) | payer MEDICARE, SELFPAY ==
[2025-07-28 13:25] LABS: Hematocrit 41.9 % (42.0-52.0); Hemoglobin 13.4 g/dL (14.0-18.0); Immature Granulocyte Percent A 0.4 % (0-0.5); Lymphocytes Absolute Auto 3.22 K/mm3 (0.9-3.2); Mean Corpuscular HGB Conc 32.0 g/dl (32-36); Mean Corpuscular Hemoglobin 29.8 pg (26-34); Mean Corpuscular Volume 93.3 fl (80-100); Nucleated Red Blood Cells Absolute Auto 0.000 K/mm3 (0.0-0.012); Nucleated Red Blood Cells Perc 0.0 % (0.0-0.2); Platelet Count Result 210 k/mm3 (150-375); Red Blood Count 4.49 M/mm3 (4.6-6.20); White Blood Count 8.4 K/mm3 (4.5-10.0)
[2025-07-28 13:51] LABS: Alanine Aminotransferase 33 U/L (6-50); Albumin Level 5.0 g/dL (3.5-5.1); Alkaline Phosphatase 89 U/L (38-126); Anion Gap 13 mmol/L (4-12); Aspartate Amino Transferase 36 U/L (17-59); Bilirubin,Total 0.5 mg/dL (0.2-1.3); Blood Urea Nitrogen 23 mg/dL (9-20); Calcium 10.2 mg/dL (8.4-10.2); Carbon Dioxide 22 mmol/L (22-30); Chloride 107 mmol/L (98-107); Estimated Glomerular Filt Rate 56; Glucose 132 mg/dL (65-110); Potassium 5.1 mmol/L (3.4-5.0); Sodium 142 mmol/L (137-145); Total Protein 8.8 g/dL (6.3-8.2)
[2025-07-28 13:52] LABS: HDL Direct 50 mg/dL
[2025-07-28 14:01] LABS: MALB Creatinine Ratio 17.9 mg/g (0-30)
--- OUTSIDE RECORDS SUMMARY | 2025-07-28 14:12 | XMS_ITS | Clinical Summary ---
Author Organization [facility] Address [address] [place] [address] Care Team Providers Care Flight Steward Name Role Phone Unavailable Primary Care Provider [...] 75+ series) 12/19/2023 COVID-19 Vaccine ( - 2024-2 6 season) 2025 Influenza Adult (#1) 2025 Hepatitis A Vaccines Aged Out No long er eligible based on patient's age to complete this topic Meningococcal B Vaccine Aged Out No l onger eligible based on patient's age to complete this topic Meningococcal Vaccine Aged Out No adalid guzman eligible based on patient's age to complete this topic RSV Immunizations Under 20 Months Aged Out No longer eligible based on patient's age to complete this topic
--- OUTSIDE RECORDS SUMMARY | 2025-07-28 14:12 | XMS_ITS | Clinical Summary ---
Author Organization [facility] Address [address] [place] [address] Care Team Providers Care Backup Operator Name Role Phone Kandy Carrillo MD Primary Care Provider Allergies Active Allergy Reactions Criticality Noted Date Comments Erythromycin Rash Medium Hydrocodone Rash Medium 08/06/2020 Milk Other (See comments) Reaction: Diarrhea, Penicillins Swelling High Throat closed up, severe immediate reaction, PCN allergy form filled out Medications esomeprazole DR (NexIUM) 20 mg capsule Take 1 capsule (20 mg total) by mouth daily Active metoprolol tartrate (LOPRESSOR) 25 mg immediate release tablet Take 1 tablet (25 mg total) by mouth 2 (two) times a day Active venlafaxine XR (EFFEXOR-XR) 75 mg 24 hr capsule Take 1 capsule (75 mg total) by mouth daily Active fenofibrate nanocrystallized (TRICOR) 145 mg tablet Take 1 tablet (145 mg total) by mouth daily Active insulin degludec (TRESIBA) 200 unit/mL (3 mL) insulin pen Inject 0.18 mL (36 Units total) under the skin nightly Active nitroglycerin (NITROSTAT) 0.[address] 1 tablet (0.4 mg total) under the tongue every 5 (five) minutes as needed for chest pain May repeat dose q 5 min, up to 3 doses total 90 tablet Active insulin aspart U-100 (NovoLOG) 100 unit/mL (3 mL) insulin pen Inject under the skin 2 (two) times a day as needed Takes on a sliding scale once to twice a day Active aspirin 81 mg enteric coated tablet Take 1 tablet (81 mg total) by mouth daily 90 tablet 3 021 Active lisinopriL (PRINIVIL,ZESTRIL) 10 mg tablet 023 Active traMADoL (ULTRAM) 50 mg tablet Take by mouth every 6 (six) hours as needed 023 Active predniSONE (DELTASONE) 20 mg tablet Take 1 tablet (20 mg) by mouth daily for 30 days 023 Active albuterol HFA (PROVENTIL HFA,VENTOLIN HFA,PROAIR HFA) 90 mcg/actuation inhaler Inhale 1 puff every 4 (four) hours as needed 024 Active Trulicity 1.5 mg/0.5 mL pen injector 025 Active rosuvastatin (CRESTOR) 40 mg tablet Take 1 tablet by mouth nightly 90 tablet 3 025 Active metFORMIN (GLUCOPHAGE) 500 mg tablet Take 2 tablets (1,000 mg total) by mouth 025 Active Xarelto 2.5 mg tablet Take 1 tablet by mouth twice daily 180 tablet 2 025 Active celecoxib (CeleBREX) 100 mg capsule Take 2 capsules (200 mg total) by mouth daily 60 capsule 023 2024 Discontinued(P atient Reported) Xarelto 2.5 mg tablet Take 1 tablet by mouth twice daily 180 tablet 025 2024 Discontinued Active Problems Problem Noted Date Diagnosed Date [...] (09/17/2020): Added automatically from request for surgery [id number] Atypical chest pain 08/06/2020 Gastroesophageal reflux disease 08/06/2020 Former smoker 08/06/2020 Hypertension associated with diabetes 08/06/2020 Hyperlipidemia associated with type 2 diabetes m ellitus 08/06/2020 Type 2 diabetes mellitus 10/18/2019 Coronary artery disease of n ative artery of [place] heart with stable angina pectoris 09/21/2010 Encounters Date Type Department Care Team Description 07/01/2025 10:30 AM DIRECTOR OF OUTREACH Office Visit [facility] Gastroenterology at [address] [place] [address] Vicente Viramontes, DO Vomiting without nausea, unspecified vomiting type (Primary Dx); Gastroesophageal reflux disease, unspecified whether esophagitis present; Dry heaves; Family history- stomach cancer; Family history of rectal cancer 07/01/2025 Telephone [facility] Gastroenterology at [address] [place] [address] [place], [place] 06/12/2025 1:30 PM DIRECTOR OF OUTREACH Office Visit [facility] Cardiology at [address] [place] [address] Moe Rodríguez MD Coronary artery disease of [place] artery of [place] heart with stable angina pectoris (Primary Dx); Hyperlipidemia associated with type 2 diabetes mellitus (HCC); Hypertension associated with diabetes (HCC); Nonrheumatic aortic valve stenosis from Last 3 Months Surgical History Surgery Date Site/Laterality Comments CORONARY ARTERY BYPASS GRAFT KNEE ARTHROSCOPY Left TRIGGER FINGER RELEASE CORONARY ANGIOPLASTY WITH STENT PLACEMENT Medical History Medical History Date Comments Asthma GERD (gastroesophageal reflux disease) CAD (coronary artery disease) CA BG/Stent HTN (hypertension) HLD (hyperlipidemia) DM2 (diabetes mellitus, type 2) NAE (generalized anxiety disorder) (aortic stenosis) Family History Medical History Relation Name Comments [...] you have a drink containing alc ohol? Never 07/01/2025 Average Number of Drinks Not on file 025 Frequency of Binge Drinking Not on file 06/08 Sex and Gender Information Value Date Recorded Sex Assigned at Not on file Legal Sex Male 12:20 AM DIRECTOR OF OUTREACH Gender Identity Not on file Sexual Orientation Not on file Last Filed Vital Signs Vital Sign Reading Time Taken Comments Blood Pressure 147/77 07/01/2025 10:39 AM DIRECTOR OF OUTREACH Pulse 92 07/01/2025 10:39 AM DIRECTOR OF OUTREACH Temperature 36.7 C (98.1 F) 10/09/2020 7:00 AM DIRECTOR OF OUTREACH Respiratory Rate 18 10/09/2020 7:00 AM DIRECTOR OF OUTREACH Oxygen Saturation 96% 07/01/2025 10:39 AM DIRECTOR OF OUTREACH Inhaled Oxygen Concentration - - Weight 80.9 kg (178 lb 6.4 oz) 07/01/2025 10:39 AM DIRECTOR OF OUTREACH Height 177.8 cm (5' 10) 07/01/2025 10:39 AM DIRECTOR OF OUTREACH Body Mass Index 25.6 07/01/2025 10:39 AM DIRECTOR OF OUTREACH Plan of Treatment Upcoming Encounters Date Type Department Care Team (Latest Contact Info) Description 12/17/2025 12:38 PM CDT Hospital Encounter [address] [address] Vicente Viramontes DO [address] [facility] [place] [address] 12/17/2025 12:38 PM CDT - 12/17/2025 1:00 PM CDT Surgery [address] [address] Vicente Viramontes DO [address] [place] [address] ESOPHAGOGASTRODUODENOSCOPY Scheduled Procedures Name Priority Associated Diagnoses Date/Ti me ESOPHAGOGASTRODUODENOSCOPY Gastroesophageal reflux disease, unspecified whether esophagitis present 12/17/2025 12:38 PM CDT Health Maintenance Due Date Last Done Comments Albumin Creatinine Ratio, Urine 1948 Depression Screening 1948 Hemoglobin A1C 1948 Hepatitis C Screening 1950 eGFR 1948 Dilated Eye Exam 1948 Foot Exam 1948 Hepatitis B Screening 1966 Pneumococcal vaccine 65+ (1 of 2 - PCV) 12/19/1967 Zoster Vaccine (1 of 2) 1998 Abdominal Aortic Aneurysm (A AA) Screen 2013 Well Visit 65+ 2013 Fall Risk Assessment 10/08/2021 10/08/2020 DTaP/Tdap/Td Vaccine (2 - Td or Tdap) 11/11/2024 11/11/2014 Influenza Vaccine (#1) 2025 , 06/05/2020, 05/07/2019, Additional history exists Lipid Panel 11/25/2025 11/25/2024, 0202/2024, 09/01/2022, Additional history exists Medical Devices Implanted Type Area Estate Planner Device Identifier Shelf Expiration Date Model / Serial / Lot [employer] X [id number] Resolute Oli 3mm 2.1-2.7fr 34mm 140cm Rapid Exchange Radiopaque - [id number] Implanted:Qty: 1 on 10/08/2020 by Riley Walden MD at [facility] [employer] [id number] / / Procedures Procedure Name Priority Date/Time Associated Diagnosis Comments POCT LIPID PANEL Routine 11/25/2024 9:10 AM CDT Coronary artery disease of [place] artery of [place] heart with stable angina pectoris Hyperlipidemia associated [...] Most Recently Relevant to Health Maintenance Insurance [facility] MEDICARE ADVANTAGE [facility] Address: [address] [address] [facility] MEDICARE ADVANTAGE [facility] Address: [address] [address] [place] [address] [facility] MEDICARE ADVANTAGE [facility] Address: [address] [address] [place] [address] [facility] MEDICARE ADVANTAGE [facility] Address: [address] [address] [place] [address] Care Teams Backup Operator Relationship Specialty Start Date End Date Kandy Carrillo MD PCP - General 10/10/16
--- OUTSIDE RECORDS SUMMARY | 2025-07-28 14:12 | XMS_ITS | Data Portability ---
Author Organization [place] - [employer], Main Office Address [address] [place] [address] Care Team Providers Care Memorial Marker Designer Name Role Phone IDALIA MONROE Primary Care Provider IDALIA MONROE Referring Provider [phone] Assessment No assessment recorded. Plan of Treatment Reminders Order Date Submit Date Provider Last Modified By Organization Details Last Modified Time Details Appointments None recorded. Lab rf (rheumatoid factor), serum [address] [place] [address] (Lab), [address] [place] [address], [id number], 3 09:57:45 ccp (cyclic citrullinat ed peptide) iga+igg, serum [address] [place] [address] (Lab), [address] [place] [address], [phone], 3 09:57:45 ESR (erythrocyt e sedimentati on rate), blood [address] [place] [address] (Lab), [address] [place] [address], [address], 3 09:57:46 C reactive protein, QN, serum or plasma [address] [place] [address] (Lab), [address] [place] [address], [phone], 3 09:57:46 MASON (antinuclea r antibodies) screen, serum [address] (Lab), [address] [place] [address], [address], 3 09:57:46 lipid panel, serum [address] (Lab), [address] [place] [address], [address], 3 09:57:46 TSH + free T4, serum [address] (Lab), [address] [place] [address], [id number], 3 09:57:46 CMP, serum or plasma 2022 023 [facility] (Lab), [address] [place] [address], [address], 3 16:32:09 HbA1c (hemoglobin A1c), blood [address] (Lab), [address] [place] [address], [address], 3 09:57:46 microalbumi n/creatinin e, mass ratio, urine [address] (Lab), [address] [place] [address], [address], 3 09:57:45 Referral endocrinolo gy referral 2022 023 [email or web address] Heide Villa MD, [address],, [facility], [place], [address], 3 14:42:07 Procedures None recorded. Surgeries None recorded. Imaging None recorded. Medication Orders Tresiba FlexTouch U-200 insulin 200 unit/mL (3 mL) subcutaneou s pen 2022 023 [facility] [place], [address], 3 14:32:02 glipizide 5 mg tablet 2022 023 [facility] [address] [place], [address], 3 14:33:13 glipizide 5 mg tablet 2022 023 [facility] [address] [place], [address], 3 09:53:56 Patient TargetsNo targets recorded. Patient InstructionsNo instructions recorded. Reason for Referral Endocrinology Referral for W ell controlled type 2 diabetes mellitus Referring Physician: Rosa Meeks, Endocrinology, Encounter Date: 05/09/2023 Results Created Date Observation Date Name Description Value Unit Range Abnormal Flag Note LastModifiedBy Organization Detail LastModifiedTime 07/20/20 22 07/20/2022 elect umair thomas am No observ ation record ed. [id number] [facility] (Resp Services) [address] [place] [address] [facility], [place], [address], 10/05/2022 05:06:44 Result Notes None recorded. Problems Name Problem SNOMED Code Status Onset Date Resolution Date Notes Provider Name and Address Organization Details Recorded Time Acquired trigger finger 2261284 Active Not Available [facility] 3 04:50:15 Radiothera py follow-up 122879883 Active Not Available [facility] 3 04:50:15 Current tear of medial cartilage AND/OR meniscus of knee Active Not Available [facility] 3 04:50:16 Knee pain Active Not Available [facility] 3 04:50:16 Sprain of metacarpop halangeal joint 56744978 Active Not Available [facility] 3 04:50:16 Arthropath y of joint of hand 204190744 Active Not Available [facility] 3 04:50:16 Disorder of bursa of shoulder region 50401039 Active Not Available [facility] 3 04:50:17 Sprain of wrist 36230581 Active Not Available [facility] 3 04:50:17 Type 2 diabetes mellitus 89453776 Active 2019 Not Available [facility] 3 04:50:17 Hyperlipid emia 02581970 Active 2019 Not Available [facility] 3 04:50:17 Osteoarthr itis of right knee joint 7320306024087 00 Active 2021 Not Available [facility] 3 04:50:16 Pain of right hand 6672915349716 09 Active 2021 Not Available [facility] 3 04:50:16 Derangemen t of right knee 7787593668318 9109 Active 2021 Not Available [facility] 3 04:50:15 Osteoarthr itis of knee 542403858 Active 2021 Not Available [facility] 3 04:50:15 Tear of medial meniscus of knee 756231179 Active 2021 Not Available [facility] 3 04:50:15 Acquired trigger finger of right index finger 3102855861076 Active 2021 Not Available [facility] 3 04:50:16 Pain of right knee joint 4210443554344 00 Active 2021 Not Available [facility] 3 04:50:17 Carpal tunnel syndrome of left wrist 1274108344569 02 Active 2022 Not Available [facility] 3 04:50:15 Acquired trigger finger of left ring finger 3157007476365 09 Active 2022 Not Available [facility] 3 04:50:16 Uncontroll ed type 2 diabetes mellitus 079673241 Active 2022 KAYKAY Gottlieb null, [place] [facility] 3 13:42:09 Dyslipidem ia 933120068 Active 2022 Rosa Meeks MD [address] [place] [address], [address] [place], [address] , [employer] 3 21:53:24 Osteoarthr itis 542075171 Active 2022 Rosa Meeks MD [address], [place], [address] , [employer] [facility] 3 09:56:19 Well controlled type 2 diabetes mellitus 170675654 Active 2022 Rosa Meeks MD [address], [place], [address] , [employer] 3 14:31:36 Problem Notes None recorded. Procedures Surgical History Date Name Laterality Status Provider Name and Address Organization Details Recorded Time 2 Knee Surgery completed Not Available [facility] 023 04:41:40 coronary artery bypass grafts x 3 completed Not Available [facility] 10/05/2022 04:41:40 Knee Surgery completed Not Available [facility] 10/05/2022 04:41:40 Imaging Results None recorded. Procedure Notes None recorded. Medical Equipment None Reported. Allergies Allergen ID Allergen Name Allergen Category Reaction Reaction Severity Criticality Documentation Date Start Date Code Code System Note Provider Name and Address Organization Details Recorded Time 8679 Product containin g penicilli n (product) medicatio n Not available Not available Not available 10/05/2022 06327 8001 SNOMED Not Available [facility] 3 05:06:05 8681 hydrocodo ne Not available rash Not available Not available 10/05/2022 5489 RxNorm Not Available [facility] 3 05:06:05 8682 erythromy sultana medicatio n Not available Not available Not available 10/05/2022 4053 RxNorm Not Available [facility] 3 05:06:05 Medications Name Sig Start Date [...] administ ered by the provider 09/[address] [facility]: 0409-427 01-21 Not Available Not Available [...] mg by injectio n route. 01/[address] [facility] 89752-82 11-05 Not Available Not Available Not Available [...] Available Not Available Not Available Fluzone High-Dose 8494-4786 (PF) 180 mcg/0.5 mL intramusc ular syringe [...] Updated DateTime 09/05/2022 26.4 kg/m2 177.8 cm 45024 g Not Available [facility] 10/05/2022 04:43:38 Date Recorded Body mass index (BMI) Body height Body weight Provider Name and Address Organization Details Last Updated DateTime 10/03/2022 25.7 kg/m2 177.8 cm 49680.03 g Not Available [facility] 10/05/2022 04:43:38 Date Recorded Body height Body mass index (BMI) Body weight Body temperature Heart rate Systolic And Diastolic Provider Name and Address Organization Details Last Updated DateTime 3 177.8 cm 26.1 kg/m2 93709.8 1 g 97.2 [degF] 109 /min 159/92 mm[Hg] KAYKAY Alonso [facility] [employer] [facility] 3 09:30:05 Date Recorded Body height Body mass index (BMI) Body weight Respiratory rate Body temperature Heart rate Systolic And Diastolic Provider Name and Address Organization Details Last Updated DateTime 3 177.8 cm 26.7 kg/m2 93538.6 2 g 14 /min 97.7 [degF] 68 /min 129/79 mm[Hg] Sharon Vaughn RN [facility] [employer] [facility] [employer] 3 14:19:37 Social History Question Answer Notes LastModified by [employer] Details LastModified Time Tobacco Smoking Status Former Smoker Not Available [facility] 10/05/2022 04:12:02 What Is Your Level Of Caffeine Consumption? Moderate [id number] Information not available 10/05/2022 When Did You Quit Smoking? 6-10yearssinc elastcigarett e [id number] Information not available 10/05/2022 What Was The Date Of Your Most Recent Tobacco Screening? 06/28/2021 [id number] Information not available 10/05/2022 What Is Your Relationship Status? [id number] Information not available 10/05/2022 Sex: Male Functional Status Question Answer Note LastModified by [employer] Details LastModified Time Do you use any illicit or recreational drugs? No [id number] Information not available 10/05/2022 Do you or have you ever used any other forms of tobacco or nicotine? No [id number] 026 Information not available 10/05/2022 What is your level of alcohol consumption? Occasional [id number] Information not available 10/05/2022 Mental Status None recorded. Family History Relationship Description Onset Age of this Age Resolved Age Notes LastModified by Organization Details LastModified Time Mother Heart disease [id number] Not available 10/05/2022 04:41:45 Mother Myocardial infarction [id number] [id number] Not available 10/05/2022 04:41:45 Brother Heart disease 3 brothe r [id number].238 [id number] Not available 10/05/2022 04:41:45 Brother Myocardial infarction [id number] [id number] Not available 10/05/2022 04:41:45 Brother Disease of liver [id number] Not available 10/05/2022 04:41:45 Medical History Condition Response DIABETES, TYPE Y HYPERTENSION Y HIGH CHOLESTEROL / HYPERLIPIDEMIA Y Past Encounters Encounter ID Performer Location Encounter Start Date Encounter Closed Date Diagnosis/Indication Diagnosis SNOMED-CT Code Diagnosis ICD10 Code Diagnosis IMO Codes Diagnosis Note [id number] Rosa Meeks MD [facility] [address] [place] [address] 03/05/2021 00:00:00 03/05/2021 12:56:44 [id number] Bahman Hays MD [facility] [address] [place] [address] 06/28/2021 00:00:00 06/28/2021 11:08:28 [id number] Bahman Hays MD [facility] [address] [place] [address] 07/15/2021 00:00:00 07/15/2021 09:55:52 [id number] Bahman Hays MD [facility] [address] [place] [address] 09/07/2021 00:00:00 09/07/2021 14:07:52 [id number] Bahman Hays MD [facility] [address] [place] [address] 10/28/2021 00:00:00 10/28/2021 11:22:16 [id number] Rosa Meeks MD [facility] [address] [place] [address] 11/26/2021 00:00:00 11/26/2021 11:34:49 [id number] Bahman Hays MD [facility] [address] [place] [address] 05/19/2022 00:00:00 05/19/2022 11:34:22 [id number] Bahman Hays MD [facility] [address] [place] [address] 06/16/2022 00:00:00 06/16/2022 11:51:18 [id number] Rosa Meeks MD [facility] [address] [place] [address] 07/22/2022 00:00:00 07/22/2022 13:41:57 [id number] Bahman Hays MD [facility] [address] [place] [address] 08/09/2022 00:00:00 08/09/2022 14:50:42 [id number] Bahman Hays MD [facility] [address] [place] [address] 09/05/2022 00:00:00 09/05/2022 10:30:04 [id number] Bahman Hays MD [facility] [address] [place] [address] 10/03/2022 00:00:00 10/03/2022 11:34:15 [id number] Rosa Meeks MD [facility] [address] [place] [address] 01/24/2023 09:21:57 01/24/2023 10:09:05 Uncontrolled type 2 diabetes mellitus 883817671 E11.65 Dyslipidemia 337813712 E 78.5 Osteoarthritis 272411679 M19.90 [id number] Rosa eMeks MD [facility] [address] [place] [address] 05/09/2023 13:53:45 05/09/2023 14:42:07 Well controlled type 2 diabetes mellitus 136985521 E11.9 A1C of 7.3% stable- patient advised [...] to endocrinol ogy per patient request. Dyslipidemia 298952137 E 78.5 LDL in range- continue statin [...] Valiente Member ID Guarantor Name 05/07/2023 1 [facility] (MEDICARE REPLACEMENT/A DVANTAGE - PPO) [id number] Yrn Mata [id number] Yrn Mata Notes Date Note Type Note [...] normal Rosa Meeks MD [address], [facility] [address], [place], [address], [employer] 01/24/2023 10:04:49 05/09/2023 text/html ROS as noted [...] of 2.060 uIU/mlCCP negativeRF negANA negLFT normalCr mkbeen85.4/43 Rosa Meeks MD [address], [address], [place], [address], [employer] 05/09/2023 14:39:19
[2025-07-28 14:23] LABS: Hepatitis B Surface Antigen Negative (Negative)
[2025-07-28 14:26] LABS: Prostate Specific Antigen 0.5 ng/mL (< OR = 4.0)
[2025-07-28 14:29] LABS: HAV RESULT Negative (Negative); Hepatitis B Core IgM Result Negative (Negative)
[2025-07-28 14:46] LABS: Vitamin B12 642.0 pg/mL (239-931)
== END 2025-07-28 12:43 | disposition home or self-care (01) ==
PROVIDERS: PCP Student in an Organized Health Care Education/Training Program; Referring Provider Student in an Organized Health Care Education/Training Program; Visit Provider Internal Medicine Endocrinology, Diabetes & Metabolism
DX: E11.29 Type 2 diabetes mellitus with other diabetic kidney complication (principal); R80.9 Proteinuria, unspecified; E55.9 Vitamin D deficiency, unspecified; E78.2 Mixed hyperlipidemia; Z00.00 Encounter for general adult medical examination without abnormal findings; Z12.5 Encounter for screening for malignant neoplasm of prostate; K76.0 Fatty (change of) liver, not elsewhere classified; R53.83 Other fatigue
CPT/HCPCS: 36415; 80053; 80074; 82043; 82306; 82607; 83718; 83721; 84153; 85025; G0103

== ENCOUNTER 2025-07-29 10:42 | Outpatient (CLI) | payer MEDICARE, SELFPAY ==
--- OUTSIDE RECORDS SUMMARY | 2025-07-29 11:14 | XMS_ITS | Clinical Summary ---
Author Organization [facility] Address [address] [place] [address] Care Team Providers Care Zipper Setter Lockstitch Name Role Phone Unavailable Primary Care Provider [...]
--- OUTSIDE RECORDS SUMMARY | 2025-07-29 11:14 | XMS_ITS | Clinical Summary ---
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 Encounters Date Type Department Care Team Description 07/01/2025 10:30 AM CARTON FORMING MACHINE ADJUSTER Office Visit [facility] Gastroenterology at [address] [place] [address] Vicente Viramontes, DO Vomiting without nausea, unspecified vomiting type (Primary Dx); Gastroesophageal reflux disease, unspecified whether esophagitis present; Dry heaves; Family history- stomach cancer; Family history of rectal cancer 07/01/2025 Telephone [facility] Gastroenterology at [address] [place] [address] De Young, MA 06/12/2025 1:30 PM C[employer] FORMING MACHINE ADJUSTER Office Visit [facility] Cardiology at [address] [place] [address] Moe Rodríguez MD Coronary artery disease of [place] artery of [place] heart with stable angina pectoris (Primary Dx); [...] on file Legal Sex Male 12:20 AM CARTON FORMING MACHINE ADJUSTER Gender Identity Not on file Sexual Orientation Not on file Last Filed Vital Signs Vital Sign Reading Time Taken Comments Blood Pressure 147/77 07/01/2025 10:39 AM C[employer] FORMING MACHINE ADJUSTER Pulse 92 07/01/2025 10:39 AM CARTON FORMING MACHINE ADJUSTER Temperature 36.7 C (98.1 F) 10/09/2020 7:00 AM C[employer] FORMING MACHINE ADJUSTER Respiratory Rate 18 10/09/2020 7:00 AM C[employer]ON FORMING MACHINE ADJUSTER Oxygen Saturation 96% 07/01/2025 10:39 AM C[employer] FORMING MACHINE ADJUSTER Inhaled Oxygen Concentration - - Weight 80.9 kg (178 lb 6.4 oz) 07/01/2025 10:39 AM [employer] FORMING MACHINE ADJUSTER Height 177.8 cm (5' 10) 07/01/2025 10:39 AM C[employer] FORMING MACHINE ADJUSTER Body Mass Index 25.6 07/01/2025 10:39 AM CARTON FORMING MACHINE ADJUSTER Plan of Treatment Upcoming Encounters Date Type Department Care Team (Latest Contact Info) Description 12/17/2025 12:38 PM CDT Hospital Encounter [address] [address] Vicente Viramontes DO [address] [place] [address] 12/17/2025 12:38 PM CDT - 12/17/2025 1:00 PM CDT Surgery [address] [address] Vicente Viramontes DO [address] [place] [address] ESOPHAGOGASTRODUODENOSCOPY Scheduled Procedures Name Priority Associated Diagnoses [...] history exists Medical Devices Implanted Type Area Air Quality Instrument Specialist Device Identifier Shelf Expiration Date Model / Serial / Lot [employer] X [id number] Resolute Oli 3mm 2.1-2.7fr 34mm 140cm Rapid Exchange Radiopaque - [id number] Implanted:Qty: 1 on 10/08/2020 by Riley Walden MD at [facility] [employer] [id number] / / Procedures Procedure Name Priority Date/Time Associated Diagnosis Comments POCT LIPID PANEL Routine 11/25/2024 9:10 AM CDT Coronary artery disease of [place] artery of [place] heart with stable angina pectoris Hyperlipidemia associated [...] Most Recently Relevant to Health Maintenance Insurance [facility] MEDICARE ADVANTAGE [facility] MED[facility] Address: [address] [address] [facility] MEDICARE ADVANTAGE [facility] MEDIC[facility] Address: [address] [address] [place] [address] [facility] MEDICARE ADVANTAGE [facility] MEDICARE Address: [address] [address] [place] [address] [facility] MEDICARE ADVANTAGE [facility] MEDIC[facility] Address: [address] [address] [place] [address] Care Teams Lehr Loader Relationship Specialty Start Date End Date Kandy Carrillo MD PCP - General 10/10/16
[2025-07-29 11:27] LABS: Anion Gap 9 mmol/L (4-12); Blood Urea Nitrogen 22 mg/dL (9-20); Calcium 9.7 mg/dL (8.4-10.2); Carbon Dioxide 23 mmol/L (22-30); Chloride 107 mmol/L (98-107); Estimated Glomerular Filt Rate > 60; Glucose 230 mg/dL (65-110); Potassium 4.5 mmol/L (3.4-5.0); Sodium 139 mmol/L (137-145)
== END 2025-07-29 10:43 | disposition home or self-care (01) ==
PROVIDERS: PCP Student in an Organized Health Care Education/Training Program; Visit Provider Student in an Organized Health Care Education/Training Program
DX: E87.5 Hyperkalemia (principal)
CPT/HCPCS: 36415; 80048